=== PATIENT | male | born 1945 | race Caucasian/White ===

== ENCOUNTER 2018-04-16 12:50 | Outpatient (REF) | payer MEDICARE, MEDICAID, SELFPAY ==
[2018-04-16 14:00] LABS: HCT 44.1 % (40.0-50.0); HGB 15.1 g/dL (13.5-17.5); Mean Corp. HGB Concentration 34.2 g/dL (32.0-36.0); Mean Corpuscular Hemoglobin 31.7 pg (27.0-33.0); Mean Corpuscular Volume 92.6 fL (80-95); Mean Platelet Volume 9.8 fL (8.0-11.0); Platelet Count 258 x1000/uL (130-400); RBC 4.76 m/cumm (4.50-6.00); RBC Distribution Width 13.2 % (11.8-14.1); White Blood Cell Count 8.49 k/cumm (4.4-10.8)
[2018-04-16 14:27] LABS: ALT 26 U/L (12-78); AST 17 U/L (15-37); Albumin 4.2 g/dL (3.4-5.0); Alkaline Phosphatase 70 U/L (46-116); Anion Gap 11.8 mmol/L (3-11); BUN 16 mg/dL (7-18); Bilirubin, Total 0.8 mg/dL (0.2-1.0); CO2 25.2 mmol/L (21.0-32.0); CREATININE 1.24 mg/dL (0.70-1.30); Calcium 8.9 mg/dL (8.5-10.1); Chloride 102 mmol/L (98-107); Cholesterol 186 mg/dL (50-200); Glucose 110 mg/dL (70-100); HDL Cholesterol 54 mg/dL (40-60); LDL CHOLESTEROL 117 mg/dL (<100); Potassium 4.1 mmol/L (3.5-5.1); Sodium 139 mmol/L (136-145); TSH (W/Ref FT4) 2.32 uIU/mL (0.358-3.74); Total Protein 7.2 g/dL (6.4-8.2); Triglyceride 111 mg/dL (30-150)
== END 2018-04-16 13:10 ==
LOC: NCHCN 12:50
PROVIDERS: PCP Family Medicine; Visit Provider Family Medicine
DX: E78.5 Hyperlipidemia, unspecified (principal); I10 Essential (primary) hypertension; J44.9 Chronic obstructive pulmonary disease, unspecified
CPT/HCPCS: 80053; 80061; 83721; 85027; 84443

== ENCOUNTER 2019-04-18 09:01 | Outpatient (REF) | payer MEDICARE, MEDICAID, SELFPAY ==
[2019-04-18 12:17] LABS: ALT 12 U/L (16-63); AST 9 U/L (15-37); Albumin 3.6 g/dL (3.4-5.0); Alkaline Phosphatase 60 U/L (46-116); BUN 15 mg/dL (7-18); Bilirubin, Total 0.7 mg/dL (0.2-1.0); CREATININE 1.26 mg/dL (0.70-1.30); Calculated LDL 98 mg/dL; Chloride 103 mmol/L (98-107); Cholesterol 168 mg/dL (<200); Glucose 116 mg/dL (74-106); HDL Cholesterol 52 mg/dL (40-60); Potassium 4.4 mmol/L (3.5-5.1); Sodium 142 mmol/L (136-145); Total Protein 6.7 g/dL (6.4-8.2); Triglyceride 94 mg/dL (<150)
== END 2019-04-18 09:21 ==
LOC: NCHCN 09:01
PROVIDERS: PCP Family Medicine; Visit Provider Family Medicine
DX: I10 Essential (primary) hypertension (principal); E78.5 Hyperlipidemia, unspecified
CPT/HCPCS: 80053; 80061

== ENCOUNTER 2020-02-13 01:13 | Outpatient (CLI) | payer MEDICARE, MEDICAID, SELFPAY ==
--- NOTE | 2020-02-13 13:30 | DI.CTLCSR_ITS ---
EXAM: CT CHEST LUNG CANCER SCREEN CLINICAL HISTORY: SCREENING FOR LUNG CA, CURRENT SMOKER, F17.210 TECHNIQUE: COMPARISON: CR CHEST 2 VIEWS PA,LAT from 10/15/2015 FINDINGS: CT examination of the chest was performed utilizing low-dose lung cancer screening protocol without c ontrast administration. Images obtained through the upper abdomen show unremarkable appearance of visualized portions of live r, spleen, pancreas, adrenals, and kidneys. There is slight prominence of pretracheal lymph nodes, the largest measuring about 19 millimeters in greatest diameter. No gross adenopathy identified in mediastinum or catina. Tracheobronchial tree shows scattered traction bronchiectasis in the upper lobes. There is severe [place] emphysema and associated reticular changes in the upper lobes. There is a 4 millimeter in diamet er right upper lobe intrapulmonary nodule seen laterally at the level of the karyn. This is noncalc ified. No other significant pulmonary nodule seen. No pleural effusion. No thoracic aortic aneurysm. IMPRESSION: Severe bullous emphysema. 4 millimeter left upper lobe intrapulmonary nodule. Lung RADS Cat 2 - Benign Appearance / Behavior: Nodules with a very low likelihood of becoming a clin ically active cancer due to size or lack of growth Continue annual screening with LD CT in 12 months. RADIATION DOSE DELIVERED: 113.24mGy.cm Total DLP
== END 2020-02-13 01:33 ==
PROVIDERS: PCP Family Medicine; Visit Provider Internal Medicine
DX: F17.210 Nicotine dependence, cigarettes, uncomplicated (principal); R91.1 Solitary pulmonary nodule; J43.9 Emphysema, unspecified
CPT/HCPCS: G0297

== ENCOUNTER 2020-03-19 01:26 | Outpatient (CLI) | payer MEDICARE, MEDICAID, SELFPAY ==
--- NOTE | 2020-03-19 | DI.US_ITS ---
EXAM: US LOWER EXTREMITY VENOUS RT CLINICAL HISTORY: SWELLING OF LIMB,R22.41. TECHNIQUE: Right lower extremity venous ultrasound performed using grayscale, color-flow, and spectr al Doppler analysis. COMPARISON: No exams were available for comparison FINDINGS: The right common femoral, femoral and popliteal veins demonstrate normal compressibility, augmentatio n, and color Doppler. The posterior tibial veins are patent.The right greater saphenous vein is not s een and is presumed to be surgically absent in this patient who is apparently had prior bypass surger y on the right leg performed approximately 10 years ago. IMPRESSION: No ultrasound evidence of DVT in the right lower extremity. DATA REPOSITORY:
== END 2020-03-19 01:46 ==
PROVIDERS: PCP Family Medicine; Visit Provider Family Medicine
DX: R22.41 Localized swelling, mass and lump, right lower limb (principal)
CPT/HCPCS: 93971

== ENCOUNTER 2022-08-03 16:18 | Inpatient (IN) | payer MEDICARE, MEDICAID, SELFPAY ==
[2022-08-03] VITALS (55 sets, daily range): BP systolic 109–169; BP diastolic 62–120; PULSE 100–133; RESP 4–30; TEMP 35.7–36; O2SAT 68–100
--- NOTE | 2022-08-03 | DI.RAD_ITS ---
Exam(s) XR PORTABLE CHEST AP EXAM: XR PORTABLE CHEST AP CLINICAL HISTORY: s/p pigtail catheter insertion for pneumothorax TECHNIQUE: 2D digital imaging was performed. COMPARISON: CR,XR XR CHEST 2V PA LATERAL from 08/03/2022 FINDINGS: A left-sided pigtail chest tube has been inserted in the mid to lower lateral chest. There has been considerable reinflation of the left lung however small pneumothorax remains present. The length sev ere emphysematous changes are again noted. No focal infiltrates. IMPRESSION: Decreased size of left pneumothorax status post placement of chest tube. DATA REPOSITORY: RADIATION DOSE DELIVERED:
--- NOTE | 2022-08-03 16:15 | RT.EKG_ITS ---
APPROVED REPORT Exam: Resting ECG Reason for Exam: SOB Patient Location: E HR:129 bpm ECG Measurements Heart Rate 129 AXIS PA 130 P 69 QRSd 88 QRS 92 QT 331 T 47 QTc 486 Conclusion Sinus tachycardia...rate> 99 Right axis deviation...QRS axis ( 36,216)
--- NOTE | 2022-08-03 16:30 | DI.RAD_ITS ---
Exam(s) XR CHEST 2V PA LATERAL EXAM: XR CHEST 2V PA LATERAL CLINICAL HISTORY: SOB TECHNIQUE: 2D digital imaging was performed. COMPARISON: CR CHEST 2 VIEWS PA,LAT from 10/15/[address] CHEST LUNG CANCER SCREEN from 02/13/2020 FINDINGS: HEART: Normal size. Aorta: Not dilated. PULMONARY VASCULATURE: Normal. LUNGS: Clear. Severe underlying emphysematous changes. PLEURAL SPACE: No pleural effusion. Small to moderate size left pneumothorax. BONE:Unremarkable for age. IMPRESSION: Left pneumothorax. DATA REPOSITORY: RADIATION DOSE DELIVERED:
[2022-08-03] MEDS: predniSONE 20 MG TAB 60 MG PO (16:52)
[2022-08-03 16:53] LABS: BE (Venous) -1 mmol/L (-2-3); HCO3 (Venous) 25 mmol/L (23-28); O2 Sat (Venous) 73 %; TCO2 (Venous) 23 mmol/L (24-29); pCO2 (Venous) 54 mmHg (41-51); pH (Venous) 7.28 (7.31-7.41); pO2 (Venous) 41 mmHg
[2022-08-03] MEDS: Albuterol/Ipratropium 3 ML UPD VIAL UPD ×3 (16:53→22:56)
[2022-08-03 16:55] LABS: Abs Immature Grans 0.04 10^3/uL (0.0-0.06); Absolute Basophil Count 0.03 10^3/uL (0.0-0.2); Absolute Eosinophil Count 0.01 10^3/uL (0.0-0.7); Absolute Lymphocyte Count 0.51 10^3/uL (1.2-3.4); Absolute Monocyte Count 0.54 10^3/uL (0.1-0.8); Absolute Neutrophil Count 12.38 10^3/uL (1.2-6.7); Basophils % 0.2; Eosinophils % 0.1; HCT 43.7 % (40.0-50.0); HGB 15.3 g/dL (13.5-17.5); Immature Grans % 0.3; Lymphocytes % 3.8; MCH 31.9 pg (27.0-33.0); MCV 91 fL (80-95); MPV 8.8 fL (8.0-11.0); Neutrophils % 91.6; Platelet Count 272 10^3/uL (130-400); RBC 4.79 10^6/uL (4.36-5.78); RDW 12.3 % (11.8-14.1); RDW-SD 41.4 fL; WBC 13.51 10^3/uL (4.4-10.8)
[2022-08-03] MEDS: Normal Saline 1,000 ML 1000 ML IV (17:01)
[2022-08-03 17:13] LABS: ALT 22 U/L (16-63); AST 16 U/L (15-37); Alkaline Phosphatase 73 U/L (46-116); Anion Gap 11.2 mmol/L (3-11); BUN 23 mg/dL (7-18); Bilirubin, Total 0.7 mg/dL (0.2-1.0); CO2 26.8 mmol/L (21.0-32.0); CREATININE 1.3 mg/dL (0.70-1.30); Calcium 9.4 mg/dL (8.5-10.1); Chloride 100 mmol/L (98-107); Estimated GFR 56.58 (mL/min/1.73m2); Glucose 169 mg/dL (74-106); Magnesium 1.9 mg/dL (1.8-2.4); Potassium 4.3 mmol/L (3.5-5.1); Sodium 138 mmol/L (136-145); Total Protein 7.9 g/dL (6.4-8.2); Troponin I < 50 ng/L (<or=60)
--- NOTE | 2022-08-03 17:40 | W.ED.GENAD ---
Discharge Plan Disposition Patient Disposition: Admit to [facility] Discharge Details Clinical Impression: Pneumothorax, COPD (chronic obstructive pulmonary disease), Tobacco abuse disorder Admit Date/Time: 08/03/22 18:47 Admit Provider: Guru Cosby Attending Provider: Guru Cosby Primary Care Provider: Lor Cristina ED Provider: Gypsy Patterson Medical Decision Making Radiology with [employer] called. The patient is having increased difficulty breathing and we have asked him to turn his oxygen up to 3 L. 1809 Patient is back from radiology and sats are in the high 80s on 2 L/min with a poor waveform. He states that his breathing got worse with exertion but is improving now that he is resting. He is still speaking in full sentences. We will repeat the DuoNeb and I will admit him at this time. He is still tachycardic and it is unclear to me why. CXR pending. He does not feel hot but we will check a rectal temperature. Going to put in for a PE protocol CT as well. Short time after above I reviewed the x-ray and noted no edema and severe COPD without blebs. The patient also had a 30% pneumothorax. Radiology stated that it was unclear whether the patient had any element of tension because of his COPD. The patient was moved to room 2 and surgery was called to place a pigtail catheter chest tube with me. Nursing was instructed to take frequent vital signs. Patient's sats were unchanged and his heart rate had actually come down into the 120s. Kept a close eye on his blood pressure. Thought he would do a lot better with the pigtail that a full open chest tube. The patient tolerated chest tube placement well and immediately felt improved after this with the sats increasing into the 90s on room air. He was alert and oriented. Of note, Dr. Cosby was updated multiple times. He did note that the patient needed a repeat chest x-ray at 2100 tonight and again tomorrow morning. Medical Records Medical records reviewed: Yes I reviewed the patient's medical records. Imaging Data Radiologic Study: My impression: Severe COPD, no edema, pneumothorax Radiologist's impression: 30% pneumothorax, unable to ascertain tension Lab Data Lab results reviewed: Yes I reviewed the patient's lab results. Lab results narrative: White blood cell count 13.5 thousand with 92 polys and no bands. Patient's VBG shows a pH of 7.28, PCO2 of 54, and bicarb of 23 ECG Data Attestation: I personally reviewed and interpreted this ECG (s) as follows: Interpretation: Sinus tachycardia at 130, right axis deviation, some artifact HPI General Date/Time Provider Initiated Documentation: 08/03/22 16:35. HPI Narrative: This 77-year-old male patient presents with a chief complaint of shortness of breath that began when he got up this morning and has been worsening over the course the day. He is vague about whether this began suddenly or started slowly and then got worse. He is a heavy smoker and has a history of COPD. He tried his rescue inhaler without relief. He has had no fever, cough, or URI symptoms. He has no chest or abdominal pain. He does have some pedal edema which is somewhat new. He has no calf pain. Exertion makes his breathing worse. It was moderately severe so the patient decided to come to the emergency department. It has also been constant. Patient thinks his oxygen saturation is typically 97%. Related Data Home Medications Medication Instructions Recorded Confirmed albuterol sulfate 90 mcg/actuation 2 puff inhalation PRN PRN 03/29/14 08/03/22 aerosol inhaler albuterol sulfate 90 mcg/actuation 8.5 gm inhalation Q4H PRN PRN ##1 03/29/14 aerosol inhaler methylprednisolone 4 mg tablets in 4 mg PO DIRECTED #1 unit 03/29/14 a dose pack fluticasone fur. 100 mcg-umeclid 1 inh inhalation QDAY 08/03/22 08/03/22 62.5 mcg-vilant 25 mcg inhalat.powder (Trelegy Ellipta) Previous Rx's Medication Instructions Recorded albuterol sulfate 90 mcg/actuation 8.5 gm inhalation Q4H PRN PRN ##1 03/29/14 aerosol inhaler methylprednisolone 4 mg tablets in 4 mg PO DIRECTED #1 unit 03/29/14 a dose pack Allergies Allergy/AdvReac Type Severity Reaction Status Date / Time No Known Allergies Allergy Unverified 03/29/14 11:30 General Stated Complaint: SOB KRISTEL: 3 Review of Systems Constitutional Constitutional: Denies chills, Denies fever(s), Denies headache(s) and Denies weakness Eyes Eyes: Denies diplopia and Reports other (no redness) ENT Ears, Nose, Mouth, and Throat: Denies otalgia, Denies headache(s), Denies nasal congestion, Denies nasal discharge, Denies neck pain and Denies sore throat Cardiovascular Cardiovascular: Denies chest pain, Denies palpitations and Reports dyspnea Respiratory Respiratory: Denies cough, Reports dyspnea and Reports wheezing Gastrointestinal Gastrointestinal: Denies abdominal pain, Denies diarrhea, Denies nausea and Denies vomiting Genitourinary Genitourinary: Denies difficulty urinating and Denies dysuria Musculoskeletal Musculoskeletal: Denies myalgias, Denies muscle weakness, Denies neck pain, Denies numbness and Reports other (edema) Integumentary/Breasts Skin/Breast: Denies change in pigmentation and Denies rash Neurologic Neurologic: Denies headache(s), Denies numbness and Denies weakness Endocrine Endocrine: Denies palpitations Allergic/Immunologic Allergic/Immunologic: Reports wheezing PFSH All Active Problems (Updated 08/03/22 @ 20:20 by Guru Cosby MD) Discharge planning issues (Acute) Tobacco abuse disorder (Acute) COPD (chronic obstructive pulmonary disease) (Chronic) Pneumothorax (Acute) Social History Smoking/Tobacco Use Status: Current every day Tobacco Type: cigarettes Smoking risk assessment performed?: Yes Alcohol Intake: former Drug use: Never Substance use type: does not use Do you feel safe at home: Yes Do you feel safe in your relationship?: Yes Exam Const General: no acute distress, well developed, well groomed and not in acute distress Nutritional Appearance: well nourished Orientation: alert and oriented x3 [facility] Head: normocephalic and atraumatic Ears: external ears normal Mouth: oropharynx normal and moist mucous membranes Throat: posterior oropharynx normal Eyes Conjunctivae: conjunctivae normal Neck Neck: full ROM and supple Chest Chest: normal inspection of the chest Resp Effort & Inspection: normal respiratory effort and able to speak in complete sentences Auscultation: other (Decreased air movement throughout with scattered wheezing, no rales) Cardio Rate: regular rate Rhythm: regular rhythm Heart Sounds: no murmurs and no rubs GI Inspection: normal to inspection Palpation: soft, nontender and other (non distended) Auscultation: normal bowel sounds Skin General skin exam: no rashes or lesions noted and other (pink, warm, dry) Neuro General: patient alert, patient awake and patient oriented x3 Speech: speech normal Motor: other (HALL) Sensory Exam: no sensory deficits noted Extrem General: normal to inspection, full ROM and other (1+ pitting edema bilaterally) Psych Mental Status: mental status grossly normal Speech and Movement: speech and movement normal Affect: normal affect Course Vital Signs Vital signs: Vital Signs Temperature 35.7 C L 08/03/22 16:12 Pulse 131 H 08/03/22 16:12 Respiratory Rate 28 H 08/03/22 16:12 Blood Pressure 159/74 H 08/03/22 16:12 Pulse Oximetry 88 L 08/03/22 16:12 Temperature 35.7 C L 08/03/22 16:12 Temperature Source Temporal Artery Scan 08/03/22 16:12 Pulse 131 H 08/03/22 16:12 Respiratory Rate 22 08/03/22 16:53 Respiratory Effort Short of Breath 08/03/22 16:29 Respiratory Depth Normal 08/03/22 16:29 Respiratory Pattern Normal 08/03/22 16:29 Blood Pressure 159/74 H 08/03/22 16:12 Blood Pressure Position Sitting 08/03/22 16:12 Pulse Oximetry 92 08/03/22 16:53 Oxygen Delivery Method Nasal Cannula 08/03/22 16:53 Oxygen Flow Rate 2 08/03/22 16:53 Pain Level 5 08/03/22 16:12 Lab/Test Results Lab/Test Results: Laboratory Tests Range/Units 08/03/22 08/03/22 08/03/22 16:40 16:40 16:40 WBC (4.4-10.8) 10^3/uL 13.51 H RBC (4.36-5.78) 10^6/uL 4.79 Hgb (13.5-17.5) g/dL 15.3 Hct (40.0-50.0) % 43.7 MCV (80-95) fL 91 MCH (27.0-33.0) pg 31.9 MCHC (32.0-36.0) % 35.0 RDW (11.8-14.1) % 12.3 Plt Count (130-400) 10^3/uL 272 MPV (8.0-11.0) fL 8.8 Immature Gran % 0.3 Neutrophils % 91.6 Lymphocytes % 3.8 Monocytes % 4.0 Eosinophils % 0.1 Basophils % 0.2 Nucleated RBC % (0.0-0.3) % 0.0 Absolute Neutrophils (1.2-6.7) 10^3/uL 12.38 H Absolute Lymphocytes (1.2-3.4) 10^3/uL 0.51 L Absolute Monocytes (0.1-0.8) 10^3/uL 0.54 Absolute Eosinophils (0.0-0.7) 10^3/uL 0.01 Absolute Basophils (0.0-0.2) 10^3/uL 0.03 VBG pH (7.31-7.41) 7.28 L VBG pCO2 (41-51) mmHg 54 H VBG pO2 mmHg 41 VBG HCO3 (23-28) mmol/L 25 VBG Total CO2 (24-29) mmol/L 23 L VBG O2 Saturation % 73 VBG Base Excess (-2-3) mmol/L -1 Sodium (136-145) mmol/L 138 Potassium (3.5-5.1) mmol/L 4.3 Chloride (98-107) mmol/L 100 Carbon Dioxide (21.0-32.0) mmol/L 26.8 Anion Gap (3-11) mmol/L 11.2 H BUN (7-18) mg/dL 23 H Creatinine (0.70-1.30) mg/dL 1.3 Est GFR (CKD-EPI 2020) (mL/min/1.73m2) 56.58 Glucose (74-106) mg/dL 169 H Calcium (8.5-10.1) mg/dL 9.4 Magnesium (1.8-2.4) mg/dL 1.9 Total Bilirubin (0.2-1.0) mg/dL 0.7 AST (15-37) U/L 16 ALT (16-63) U/L 22 Alkaline Phosphatase (46-116) U/L 73 Troponin I (<or=60) ng/L < 50 Total Protein (6.4-8.2) g/dL 7.9 Albumin (3.4-5.0) g/dL 4.0 Procedures Chest Tube Chest Tube 1: Progress: Pigtail catheter placed in anterior axillary line opposite nipple. This was done with Dr. Rasmussen; please see his procedure note. The patient tolerated this well and his sats went up into the 90s after this off oxygen.
--- NOTE | 2022-08-03 18:20 | DI.VRAD_ITS ---
Addendum created by Lia Feldman MD on 08/03/2022 6:27:24 PM EDT: THIS REPORT CONTAINS FINDINGS THAT MAY BE CRITICAL TO PATIENT CARE. The pertinent findings were verbally communicated via telephone with Gypsy Patterson at 18:22 EDT on 08/03/2022. The findings were acknowledged and understood. Initial report created on 08/03/2022 6:19:54 PM EDT: PROCEDURE INFORMATION: Exam: XR Chest Exam date and time: 08/03/2022 17:57 Age: 77 years old Clinical indication: Other: SOB TECHNIQUE: Imaging protocol: Radiologic exam of the chest. Views: 2 views. COMPARISON: CT CHEST LUNG CANCER SCREEN 02/13/2020 13:30 FINDINGS: Lungs: No gross airspace consolidation. Pleural spaces: Moderate left pneumothorax, likely approximately 30%, in the setting of severe pulmonary emphysema. Heart/Mediastinum: Diminution of the cardiac silhouette in the setting of emphysema. Very difficult to tell if there is any tension component given the small size of the heart Bones/joints: No acute fracture. IMPRESSION: Moderate left pneumothorax, likely approximately 30%, in the setting of severe pulmonary emphysema. Challenging to assess for any tension component given the small size of the heart in the setting of emphysema. Dictated and Authenticated by: Lia Feldman MD. Ordering:SHERRI Betancur MD
--- NOTE | 2022-08-03 20:00 | HPE_ITS ---
Date of service: 08/03/22 Time of Service: 20:00 Assessment and Plan Assessment and plan (1) Pneumothorax: Status: Acute Assessment and plan: At risk d/t emphysema and significantly hyperinflated lungs. S/P pigtail catheter placement and greatly improved ease of breathing. Gen Surg to follow. (2) COPD (chronic obstructive pulmonary disease): Status: Chronic Assessment and plan: He is on Trelegy at home. Will substitute Symbicort and scheduled duonebs. No exacerbation noted. Pulmonary medicine consulted. (3) Tobacco abuse disorder: Status: Acute Assessment and plan: Off nicotine replacement and encourage cessation. He is on buproprion; for anxiety and smoking cessation. He states he wishes he could quit. History of Present Illness History of Present Illness Chief Complaint: Shortness of breath Narrative: This is a 77 yo male with a PMH of COPD, ongoing tobacco abuse disorder, previous pneumothorax. After getting out of bed on AM of admission he felt short of air. This progressed throughout the day. He found no relief with his rescue inhaler. No F/C, cough/sputum. No CP/palpitations. Vital Signs Temperature ?35.7 C L ?08/03/22 16:12 Pulse ?131 H ?08/03/22 16:12 Respiratory Rate ?28 H ?08/03/22 16:12 Blood Pressure ?159/74 H ?08/03/22 16:12 Pulse Oximetry ?88 L ?08/03/22 16:12 WBC count 13.51. Hgb 15.3. Na 138. K 4.3. BUN 23. Creatinine 1.3. Mg 1.9. Bili and LFTs normal. Troponin neg. CXR showed significant emphysematous changes. + left sided-pneumothorax. Gen Surgery consulted for placement of pigtail chest catheter. Review of Systems All systems reviewed & are unremarkable except as noted in HPI and below PFSH All Active Problems (Updated 08/03/22 @ 20:20 by Guru Cosby MD) Discharge planning issues (Acute) Tobacco abuse disorder (Acute) COPD (chronic obstructive pulmonary disease) (Chronic) Pneumothorax (Acute) Social History Smoking/Tobacco Use Status: Current every day Tobacco Type: cigarettes Smoking risk assessment performed?: Yes Alcohol Intake: former Drug use: Never Substance use type: does not use Do you feel safe at home: Yes Do you feel safe in your relationship?: Yes Meds Allergies and Home Medications Allergies Allergy/AdvReac Type Severity Reaction Status Date / Time No Known Allergies Allergy Unverified 03/29/14 11:30 Home Medications Medication Instructions Recorded Confirmed Type albuterol sulfate 90 mcg/actuation 2 puff PRN PRN 03/29/14 08/03/22 History aerosol inhaler albuterol sulfate 90 mcg/actuation 8.5 gm inhalation Q4H PRN PRN ##1 03/29/14 Rx aerosol inhaler methylprednisolone 4 mg tablets in 4 mg PO DIRECTED #1 unit 03/29/14 Rx a dose pack fluticasone fur. 100 mcg-umeclid inhalation QDAY 08/03/22 History 62.5 mcg-vilant 25 mcg inhalat.powder (Trelegy Ellipta) Exam Const General: no acute distress, well developed and well groomed Nutritional Appearance: thin Orientation: alert and oriented x3 [facility] Head: normocephalic and atraumatic Mouth: oropharynx normal and moist mucous membranes Eyes General: appearance normal, both eyes and all related structures Conjunctivae: conjunctivae normal Sclera: sclerae normal Neck Neck: full ROM and no JVD Chest Chest: normal inspection of the chest Resp Effort & Inspection: normal respiratory effort and able to speak in complete sentences Auscultation: clear to auscultation bilaterally and other (Decreased air movement throughout with scattered wheezing, no rales) Cardio Rate: regular rate Rhythm: regular rhythm Heart Sounds: no murmurs and no rubs GI Inspection: normal to inspection and non-distended Palpation: soft and nontender Auscultation: normal bowel sounds Skin General skin exam: no rashes or lesions noted, no pallor and other (warm, dry) Neuro General: patient alert, patient awake, patient oriented x3 and no focal motor deficits Speech: speech normal Extrem General: normal to inspection, no calf tenderness and edema Laterality: bilateral Psych Mental Status: mental status grossly normal Speech and Movement: speech and movement normal Affect: normal affect Results Labs 08/03/22 16:40 08/03/22 16:40 Labs: Laboratory Results - last 24 hr 08/03/22 08/03/22 08/03/22 16:40 16:40 16:40 WBC 13.51 H RBC 4.79 Hgb 15.3 Hct 43.7 MCV 91 MCH 31.9 MCHC 35.0 RDW 12.3 Plt Count 272 MPV 8.8 Immature Gran % 0.3 Neutrophils % 91.6 Lymphocytes % 3.8 Monocytes % 4.0 Eosinophils % 0.1 Basophils % 0.2 Nucleated RBC % 0.0 Absolute Neutrophils 12.38 H Absolute Lymphocytes 0.51 L Absolute Monocytes 0.54 Absolute Eosinophils 0.01 Absolute Basophils 0.03 VBG pH 7.28 L VBG pCO2 54 H VBG pO2 41 VBG HCO3 25 VBG Total CO2 23 L VBG O2 Saturation 73 VBG Base Excess -1 Sodium 138 Potassium 4.3 Chloride 100 Carbon Dioxide 26.8 Anion Gap 11.2 H BUN 23 H Creatinine 1.3 Est GFR (CKD-EPI 2020) 56.58 Glucose 169 H Calcium 9.4 Magnesium 1.9 Total Bilirubin 0.7 AST 16 ALT 22 Alkaline Phosphatase 73 Troponin I < 50 Total Protein 7.9 Albumin 4.0 Last Vital Signs Temp 35.7 C L 08/03/22 16:12 Pulse 124 H 08/03/22 19:30 Resp 20 08/03/22 19:40 BP 145/79 H 08/03/22 19:30 Pulse Ox 94 08/03/22 19:40 Time Spent Time spent with Patient: 40-54 minutes Time was spent: preparing to see the patient(eg.review tests), obtaining and/or reviewing separately otained hiistory, ordering medications,tests, procedures, referring, communicating with other health hospice patient care secretary and indepentently interpreting results
--- NOTE | 2022-08-03 20:07 | SCONE_ITS ---
Date of service: 08/03/22 Time of Service: 20:07 Assessment and Plan Assessment and plan (1) Pneumothorax: Status: Acute Assessment and plan: Continue tube thoracostomy to -20 cm of water is worth of suction for tonight. Check chest x-ray tomorrow, anticipating transition over to waterseal drainage. History of Present Illness History of Present Illness Chief Complaint: Shortness of breath Narrative: Gregorio is a 77-year-old male with a past medical history that is most significant for chronic obstructive pulmonary disease, who experienced increasing shortness of breath this morning. He first noticed it when up and moving around. The exertional dyspnea increased through the morning time, until he was experiencing near consistent shortness of breath. He had some associated coughing. He denies any chest pain. He came to the emergency department, and underwent a chest x-ray that demonstrated pneumothorax on the left side. I was consulted for insertion of a tube thoracostomy. Review of Systems Constitutional Constitutional: Denies fever(s), Denies weakness and Denies weight loss Cardiovascular Cardiovascular: Denies chest pain, Reports dyspnea and Reports dyspnea on exertion Respiratory Respiratory: Reports cough, Reports dyspnea and Reports dyspnea on exertion Gastrointestinal Gastrointestinal: Reports system reviewed and no additional complaints, except as documented Musculoskeletal Musculoskeletal: Reports system reviewed and no additional complaints, except as documented Neurologic Neurologic: Denies weakness PFSH All Active Problems (Updated 08/03/22 @ 20:20 by Guru Cosby MD) Discharge planning issues (Acute) Tobacco abuse disorder (Acute) COPD (chronic obstructive pulmonary disease) (Chronic) Pneumothorax (Acute) Social History Smoking/Tobacco Use Status: Current every day Tobacco Type: cigarettes Smoking risk assessment performed?: Yes Alcohol Intake: former Drug use: Never Substance use type: does not use Do you feel safe at home: Yes Do you feel safe in your relationship?: Yes Exam Const General: cooperative, frail appearing and ill appearing Nutritional Appearance: cachectic Orientation: alert, awake and oriented x3 Neck Neck: normal visual inspection, full ROM and trachea midline Chest Chest: normal inspection of the chest Resp Effort & Inspection: cough, labored, no segmental paradox chest wall movement, no tracheal deviation and tripod positioning Auscultation: diminished lung sounds on the left Results Last Vital Signs Temp 96.3 F L 08/03/22 16:12 Pulse 124 H 08/03/22 19:30 Resp 20 08/03/22 19:40 BP 145/79 H 08/03/22 19:30 Pulse Ox 94 08/03/22 19:40 Labs 08/03/22 16:40 08/03/22 16:40 Labs: Laboratory Results - last 24 hr 08/03/22 08/03/22 08/03/22 16:40 16:40 16:40 WBC 13.51 H RBC 4.79 Hgb 15.3 Hct 43.7 MCV 91 MCH 31.9 MCHC 35.0 RDW 12.3 Plt Count 272 MPV 8.8 Immature Gran % 0.3 Neutrophils % 91.6 Lymphocytes % 3.8 Monocytes % 4.0 Eosinophils % 0.1 Basophils % 0.2 Nucleated RBC % 0.0 Absolute Neutrophils 12.38 H Absolute Lymphocytes 0.51 L Absolute Monocytes 0.54 Absolute Eosinophils 0.01 Absolute Basophils 0.03 VBG pH 7.28 L VBG pCO2 54 H VBG pO2 41 VBG HCO3 25 VBG Total CO2 23 L VBG O2 Saturation 73 VBG Base Excess -1 Sodium 138 Potassium 4.3 Chloride 100 Carbon Dioxide 26.8 Anion Gap 11.2 H BUN 23 H Creatinine 1.3 Est GFR (CKD-EPI 2020) 56.58 Glucose 169 H Calcium 9.4 Magnesium 1.9 Total Bilirubin 0.7 AST 16 ALT 22 Alkaline Phosphatase 73 Troponin I < 50 Total Protein 7.9 Albumin 4.0 Imaging Chest x-ray: report reviewed and image reviewed Procedures Chest Tube Chest Tube 1: Chest tube location: Mid-Axillary Chest Size of tube: 8 Chest tube procedure: Yes sterile drapes applied (ChloraPrep) and other Tube sutured to skin: Yes Sterile dressing applied: Yes Anesthesia: 1% Lidocaine Volume anesthetic (ml): 5 Incision made with: #11 blade Post procedure: sutured to skin and sterile dressing applied Arauz of air heard: No Tube Drainage: Air Amount of initial drainage (ml): 0 Post procedure CXR?: Yes Patient tolerated procedure: Yes Progress: After reviewing the planned procedure with the patient, and obtaining his verbal informed consent, I prepped and draped the left chest in the usual fashion. I established a generous field block using local anesthetic. I anesthetized down to the rib and the periosteum. The procedure was performed in the anterior axillary line approximately the sixth interspace. I gently advanced the needle into the pleural space confirming it with withdrawal of air. I anesthetized the pleura. Next, using a prepackaged 8 and half [place]atian Flip pigtail style trocar catheter, I accessed the pleural cavity. I withdrew the insertion trocar, and gently advance the catheter into the pleural space without any difficulty. Access to the pleural space was confirmed by easy withdrawal of air, and instillation of a few cc of fluid without any resistance. Catheter was placed to a Pleur-evac container at -20 cm of water as were the pressure. The catheter was affixed to the skin with a suture, and sterile dressings were applied. The patient tolerated the procedure just fine.
--- NOTE | 2022-08-03 20:12 | NUR.NOTE ---
Nursing Note: ER attending and surgeon at bedside to place chest tube. Tube placed on left side at 1948. Pt immediately reporting his breathing is easier. Pt no longer having increased work of breathing. Pt 94% on room air.
[2022-08-03 20:15] LABS: Source Nasal/Nares
[2022-08-03 21:01] LABS: COVID-19 PCR Negative (Negative)
--- NOTE | 2022-08-03 22:32 | DI.VRAD_ITS ---
PROCEDURE INFORMATION: Exam: XR Chest Exam date and time: 08/03/2022 21:06 Age: 77 years old Clinical indication: Device placement; Chest tube; Additional info: Tube placement TECHNIQUE: Imaging protocol: Radiologic exam of the chest. Views: 1 view. COMPARISON: XR CHEST 2V PA LATERAL 08/03/2022 17:57 FINDINGS: Tubes, catheters and devices: Left pigtail chest tube, satisfactory position. Lungs: With the left lung apex excluded, left pneumothorax nearly completely evacuated now likely trace. Pulmonary emphysema again seen. Pleural spaces: No significant pleural fluid. Heart/Mediastinum: Diminution of the cardiac silhouette in the setting of emphysema. Bones/joints: No acute fracture. IMPRESSION: 1. Left pigtail chest tube, satisfactory position. 2. With the left lung apex excluded, left pneumothorax nearly completely evacuated now likely trace. Dictated and Authenticated by: Lia Feldman MD. Ordering:MERRY Garvey MD
[2022-08-03] MEDS: Budesonide/Formoterol 80/4.5 6.9 GM 60 PUFF INH IH (22:56)
[2022-08-04] VITALS (79 sets, daily range): BP systolic 86–124; BP diastolic 57–70; PULSE 86–115; RESP 4–30; TEMP 36.3–36.5; O2SAT 82–991
[2022-08-04] MEDS: Nicotine 21 MG/24 HR PATCH TD (00:10)
[2022-08-04] MEDS: LORazepam 2 MG/ML VIAL 0.5 MG IVP (03:04)
[2022-08-04 06:31] LABS: Abs Immature Grans 0.02 10^3/uL (0.0-0.06); Absolute Basophil Count 0.01 10^3/uL (0.0-0.2); Absolute Lymphocyte Count 0.45 10^3/uL (1.2-3.4); Absolute Monocyte Count 0.54 10^3/uL (0.1-0.8); Absolute Neutrophil Count 6.81 10^3/uL (1.2-6.7); Basophils % 0.1; HCT 38.8 % (40.0-50.0); HGB 13.4 g/dL (13.5-17.5); Immature Grans % 0.3; Lymphocytes % 5.7; MCH 32.1 pg (27.0-33.0); MCHC 34.5 % (32.0-36.0); MCV 93 fL (80-95); Monocytes % 6.9; Platelet Count 182 10^3/uL (130-400); RBC 4.17 10^6/uL (4.36-5.78); RDW 12.5 % (11.8-14.1); RDW-SD 43.3 fL; WBC 7.83 10^3/uL (4.4-10.8)
[2022-08-04 06:37] LABS: ALT 22 U/L (16-63); AST 22 U/L (15-37); Albumin 3.2 g/dL (3.4-5.0); Alkaline Phosphatase 58 U/L (46-116); Anion Gap 8.4 mmol/L (3-11); BUN 23 mg/dL (7-18); Bilirubin, Total 0.4 mg/dL (0.2-1.0); CO2 25.6 mmol/L (21.0-32.0); Calcium 8.9 mg/dL (8.5-10.1); Chloride 103 mmol/L (98-107); Estimated GFR 77.52 (mL/min/1.73m2); Glucose 155 mg/dL (74-106); Potassium 4.2 mmol/L (3.5-5.1); Sodium 137 mmol/L (136-145); Total Protein 6.6 g/dL (6.4-8.2)
[2022-08-04] MEDS: Albuterol/Ipratropium 3 ML UPD VIAL UPD ×2 (08:24→14:05)
[2022-08-04] MEDS: Budesonide/Formoterol 80/4.5 6.9 GM 60 PUFF INH IH ×2 (08:28→19:18)
[2022-08-04] MEDS: buPROPion-CR 150 MG TABCR PO ×2 (08:42→19:49)
--- NOTE | 2022-08-04 11:34 | PDOC.CMIN ---
- If Service Date Differs Date of service: 08/04/22 Time of Service: 11:34 Care Management Initial Assess REASON FOR HOSPITALIZATION:: Pneumothorax PAST MEDICAL HISTORY/PAST SURGICAL HISTORY:: All Active Problems. Discharge planning issues (Acute). Tobacco abuse disorder (Acute). COPD (chronic obstructive pulmonary disease) (Chronic). Pneumothorax (Acute) PREVIOUS FUNCTIONAL STATUS/SOCIAL/FAMILY SUPPORTS:: Gregorio lives in an apartment in [facility], [facility]. He has supportive friends, and is independent at baseline. CURRENT FUNCTIONAL STATUS:: Gregorio was sitting up in bed when CM met with him. He stated that he is looking forward to returning home, but he is doing well today. Per report, he has a chest tube in place currently, and is being closely monitored. He stated that he doesn't feel that he will need any services upon discharge, but he is willing to discuss services, if recommended. CM will continue to follow. ADVANCE DIRECTIVES:: None on file. CM will offer forms prior to discharge. Has patient been provided with info about the portal/API?: Yes Did the patient sign up for the portal?: No CODE STATUS:: Full Code INSURANCE COVERAGE / FINANCIAL ISSUES:: [facility] CURRENT HOME/COMMUNITY SERVICES/EQUIPMENT:: None known. PRIMARY CARE PHYSICIAN:: Lor Cristina POTENTIAL DISCHARGE NEEDS:: Evaluations for further needs, follow up appointments. PATIENT/FAMILY EDUCATION NEEDS:: Review discharge instructions and limitations, discussion of self care needs including ask me three. ANTICIPATED BARRIERS TO DISCHARGE:: None. TRANSPORTATION:: Via private vehicle by a friend vs RCT. PLAN:: Anticipate Gregorio will return home once medically cleared. His friend will likely drive him home via private vehicle. He will follow up with his PCP and discharge plan of care. CM will continue to follow.
--- NOTE | 2022-08-04 16:52 | W.PM.PROGNOT ---
Date of Service Date of service: 08/04/22 Time of Service: 16:53 Assessment and Plan Assessment and plan (1) Pneumothorax: Status: Acute Assessment and plan: I will leave the chest tube to suction today, and check chest x-ray tomorrow. If the lung is expanded, then will transition over to waterseal. Subjective Subjective Interval history since last seen: Gregorio is feeling much better today, and denies any difficulty breathing. He has mild discomfort at the chest tube insertion site. Exam Resp Effort & Inspection: normal respiratory effort, able to speak in complete sentences and cough Auscultation: wheezes and other (Prolonged exhalation) Other: Chest tube site looks fine. Tube is draining a small amount of serosanguineous fluid. There is a rare occasional forced air leak Objective Last Vital Signs Temp 97.3 F L 08/04/22 14:50 Pulse 107 H 08/04/22 14:50 Resp 17 08/04/22 14:50 BP 101/59 L 08/04/22 14:50 Pulse Ox 94 08/04/22 14:50 Laboratory Results - last 24 hr 08/03/22 08/03/22 08/03/22 16:40 16:40 16:40 WBC 13.51 H RBC 4.79 Hgb 15.3 Hct 43.7 MCV 91 MCH 31.9 MCHC 35.0 RDW 12.3 Plt Count 272 MPV 8.8 Immature Gran % 0.3 Neutrophils % 91.6 Lymphocytes % 3.8 Monocytes % 4.0 Eosinophils % 0.1 Basophils % 0.2 Nucleated RBC % 0.0 Absolute Neutrophils 12.38 H Absolute Lymphocytes 0.51 L Absolute Monocytes 0.54 Absolute Eosinophils 0.01 Absolute Basophils 0.03 VBG pH 7.28 L VBG pCO2 54 H VBG pO2 41 VBG HCO3 25 VBG Total CO2 23 L VBG O2 Saturation 73 VBG Base Excess -1 Sodium 138 Potassium 4.3 Chloride 100 Carbon Dioxide 26.8 Anion Gap 11.2 H BUN 23 H Creatinine 1.3 Est GFR (CKD-EPI 2020) 56.58 Glucose 169 H Calcium 9.4 Magnesium 1.9 Total Bilirubin 0.7 AST 16 ALT 22 Alkaline Phosphatase 73 Troponin I < 50 Total Protein 7.9 Albumin 4.0 COVID-19 Source SARS-CoV-2 (PCR) 08/03/22 08/04/22 08/04/22 20:11 05:32 05:32 WBC 7.83 RBC 4.17 L Hgb 13.4 L Hct 38.8 L MCV 93 MCH 32.1 MCHC 34.5 RDW 12.5 Plt Count 182 MPV 10.0 Immature Gran % 0.3 Neutrophils % 87.0 Lymphocytes % 5.7 Monocytes % 6.9 Eosinophils % 0.0 Basophils % 0.1 Nucleated RBC % 0.0 Absolute Neutrophils 6.81 H Absolute Lymphocytes 0.45 L Absolute Monocytes 0.54 Absolute Eosinophils 0.00 Absolute Basophils 0.01 VBG pH VBG pCO2 VBG pO2 VBG HCO3 VBG Total CO2 VBG O2 Saturation VBG Base Excess Sodium 137 Potassium 4.2 Chloride 103 Carbon Dioxide 25.6 Anion Gap 8.4 BUN 23 H Creatinine 1.0 Est GFR (CKD-EPI 2020) 77.52 Glucose 155 H Calcium 8.9 Magnesium Total Bilirubin 0.4 AST 22 ALT 22 Alkaline Phosphatase 58 Troponin I Total Protein 6.6 Albumin 3.2 L COVID-19 Source Nasal/Nares SARS-CoV-2 (PCR) Negative 08/04/22 05:35 WBC RBC Hgb Hct MCV MCH MCHC RDW Plt Count MPV Immature Gran % Neutrophils % Lymphocytes % Monocytes % Eosinophils % Basophils % Nucleated RBC % Absolute Neutrophils Absolute Lymphocytes Absolute Monocytes Absolute Eosinophils Absolute Basophils VBG pH VBG pCO2 VBG pO2 VBG HCO3 VBG Total CO2 VBG O2 Saturation VBG Base Excess Sodium Cancelled Potassium Cancelled Chloride Cancelled Carbon Dioxide Cancelled Anion Gap Cancelled BUN Cancelled Creatinine Cancelled Est GFR (CKD-EPI 2020) Cancelled Glucose Cancelled Calcium Cancelled Magnesium Total Bilirubin AST ALT Alkaline Phosphatase Troponin I Total Protein Albumin COVID-19 Source SARS-CoV-2 (PCR) Time Spent with Patient Time Spent with Patient: <25 minutes Time was spent: preparing to see the patient(eg.review tests), ordering medications,tests, procedures and counseling the patient
--- NOTE | 2022-08-04 19:03 | W.PM.PROGNOT ---
Date of Service Date of service: 08/04/22 Time of Service: 19:03 Assessment and Plan Assessment and plan (1) Pneumothorax: Status: Acute Assessment and plan: continue chest tube w/ suction until resolution of pneumothorax then place to water seal and if stable while on water seal, then can dc. Note he has had prior pneumothoraces. He may need consideration for VATS if unable to resolve his pneumothorax or consider for lung volume reduction to reduce his bullae burden and maybe reduce risk of future pneumothoraces. Patient needs to eliminate his tobacco use. At this point his management is primarily being handled by surgery as he is not having an acute COPD exacerbation. I discussed w/ Dr. Rasmussen transferring him over to surgical service and he was agreeable to this. We will sign off his case but remain available should any acute medical issues arise (2) COPD (chronic obstructive pulmonary disease): Status: Chronic Assessment and plan: patient does not seem to be in an acute COPD exacerbation. I would continue Symbicort and add Spiriva while he is hospitalized (as we do not carry his Trelegy), resume his Trelegy upon discharge, change proventyl updrafts to xopenex (d/t albuterol shortage); I would use the xopenex on a prn basis for wheezing or coughing or dyspnea (not associated w/ worsening of his pneumothorax). Of note his dyspnea for which he presented to the ED was not improved despite his using increased albuterol aerosol treatments. (3) Tobacco abuse disorder: Status: Acute Assessment and plan: change nicotine patch from prn to scheduled. He should be encouraged to quit smoking and medication should be offered upon discharge including nicotine patch and also consider Wellbutrin. Subjective Subjective Interval history since last seen: Patient was seen earlier this afternoon. He is doing better since his chest tube was placed. Chest tube is hooked up to suction. No drainage beyond the initial serosanguinous output.' he denies chest pain or dyspnea at this point. Exam Narrative Exam Narrative: Tall long haired graying individual sitting up in his bed. He is alert and oriented x 3. No acute distress Chest: left chest tube in place in lateral chest wall Lungs: prolonged breath sounds; no rhonchi, diminished breath sounds at the left base Heart: RRR Abdomen: scaphoid, nontender Objective Last Vital Signs Temp 36.3 C L 08/04/22 14:50 Pulse 107 H 08/04/22 14:50 Resp 17 08/04/22 14:50 BP 101/59 L 08/04/22 14:50 Pulse Ox 94 08/04/22 14:50 Laboratory Results - last 24 hr 08/03/22 08/04/22 08/04/22 20:11 05:32 05:32 WBC 7.83 RBC 4.17 L Hgb 13.4 L Hct 38.8 L MCV 93 MCH 32.1 MCHC 34.5 RDW 12.5 Plt Count 182 MPV 10.0 Immature Gran % 0.3 Neutrophils % 87.0 Lymphocytes % 5.7 Monocytes % 6.9 Eosinophils % 0.0 Basophils % 0.1 Nucleated RBC % 0.0 Absolute Neutrophils 6.81 H Absolute Lymphocytes 0.45 L Absolute Monocytes 0.54 Absolute Eosinophils 0.00 Absolute Basophils 0.01 Sodium 137 Potassium 4.2 Chloride 103 Carbon Dioxide 25.6 Anion Gap 8.4 BUN 23 H Creatinine 1.0 Est GFR (CKD-EPI 2020) 77.52 Glucose 155 H Calcium 8.9 Total Bilirubin 0.4 AST 22 ALT 22 Alkaline Phosphatase 58 Total Protein 6.6 Albumin 3.2 L COVID-19 Source Nasal/Nares SARS-CoV-2 (PCR) Negative 08/04/22 05:35 WBC RBC Hgb Hct MCV MCH MCHC RDW Plt Count MPV Immature Gran % Neutrophils % Lymphocytes % Monocytes % Eosinophils % Basophils % Nucleated RBC % Absolute Neutrophils Absolute Lymphocytes Absolute Monocytes Absolute Eosinophils Absolute Basophils Sodium Cancelled Potassium Cancelled Chloride Cancelled Carbon Dioxide Cancelled Anion Gap Cancelled BUN Cancelled Creatinine Cancelled Est GFR (CKD-EPI 2020) Cancelled Glucose Cancelled Calcium Cancelled Total Bilirubin AST ALT Alkaline Phosphatase Total Protein Albumin COVID-19 Source SARS-CoV-2 (PCR) Time Spent with Patient Time Spent with Patient: <25 minutes Time was spent: preparing to see the patient(eg.review tests), ordering medications,tests, procedures, indepentently interpreting results and care coordination
[2022-08-05 00:20] VITALS: BP 125/73; PULSE 75; RESP 18; TEMP 36.1; O2SAT 98
[2022-08-05 07:20] VITALS: BP 122/79; PULSE 102; RESP 20; TEMP 36.2; O2SAT 95
[2022-08-05] MEDS: buPROPion-CR 150 MG TABCR PO ×2 (07:53→19:38)
[2022-08-05] MEDS: Nicotine 21 MG/24 HR PATCH TD (07:54)
[2022-08-05] MEDS: Budesonide/Formoterol 80/4.5 6.9 GM 60 PUFF INH IH ×2 (08:35→19:24)
[2022-08-05] MEDS: Tiotropium Bromide-Respimat 10 PUFF INH 2 PUFF IH (08:36)
[2022-08-05 08:37] VITALS: O2SAT 90
--- NOTE | 2022-08-05 08:46 | DI.RAD_ITS ---
Exam(s) XR PORTABLE CHEST AP EXAM: XR PORTABLE CHEST AP CLINICAL HISTORY: Pneumothorx with chest tube. TECHNIQUE: 2D digital imaging was performed. COMPARISON: CR,XR XR CHEST 2V PA LATERAL from 08/03/2022 CR,XR XR PORTABLE CHEST AP from 08/03/2022 FINDINGS: Single AP portable view. The left pigtail thoracotomy catheter is unchanged in position. There has been further re-expansion of the left lung. Remaining pneumothorax less than 10 percent. Bilateral hyperinflation-COPD change s again noted. No confluent infiltrates. No pleural effusions. No pulmonary edema. Heart size is upper normal. The mediastinum is not widened. IMPRESSION: Further re-expansion of the left lung. Remaining pneumothorax approximately 10 percent. Underlying COPD-hyperinflation. DATA REPOSITORY: RADIATION DOSE DELIVERED:
--- NOTE | 2022-08-05 11:00 | DI.RAD_ITS ---
Exam(s) XR PORTABLE CHEST AP EXAM: XR PORTABLE CHEST AP CLINICAL HISTORY: chest tube clamped x 1 hr. TECHNIQUE: 2D digital imaging was performed. COMPARISON: CR XR PORTABLE CHEST AP from 08/05/2022 , as well as prior chest x-rays. FINDINGS: Single AP portable view. Position of the left pigtail chest catheter is unchanged. Size of the left pneumothorax remains at approximately 10 percent, unchanged from earlier today. Bilateral hyperinflation again noted-COPD changes. No pleural effusions. No confluent infiltrates. No pulmonary edema. IMPRESSION: Left-sided pneumothorax is unchanged from earlier today. Remains approximately 10 percent size. DATA REPOSITORY: RADIATION DOSE DELIVERED:
[2022-08-05 11:17] VITALS: BP 112/68; PULSE 99; RESP 20; TEMP 36.4; O2SAT 91
--- NOTE | 2022-08-05 14:28 | W.PM.PROGNOT ---
Date of Service Date of service: 08/05/22 Time of Service: 14:28 Assessment and Plan Assessment and plan (1) Pneumothorax: Status: Acute Assessment and plan: Chest tube on waterseal. <10% Pneumothorax. No appreciable air leak Leave Chest tube off suction Repeat CXR in am. If not worse then may remove chest tube in am. Subjective Subjective Interval history since last seen: Mr. Galeana is doing well. He doesn't have an air leak. CXR 1 hour after he was taken of suction showed continued improvement of his PTX. NO fevers Exam HENPA Head: normocephalic and atraumatic Resp Effort & Inspection: normal respiratory effort Auscultation: clear to auscultation bilaterally Objective Last Vital Signs Temp 97.5 F L 08/05/22 11:17 Pulse 99 H 08/05/22 11:17 Resp 20 08/05/22 11:17 BP 112/68 08/05/22 11:17 Pulse Ox 91 L 08/05/22 11:17 Time Spent with Patient Time Spent with Patient: <25 minutes Time was spent: preparing to see the patient(eg.review tests), obtaining and/or reviewing separately otained hiistory, indepentently interpreting results and counseling the patient
[2022-08-05 15:02] VITALS: BP 102/68; PULSE 91; RESP 20; TEMP 36.5; O2SAT 95
--- NOTE | 2022-08-05 15:19 | PHACLINREV_ITS ---
Pharmacy Admission Review - Admission Clinical Review (Last Reviewed 08/03/22 @ 20:19 by Guru Cosby MD) Tobacco abuse disorder (Acute) Pneumothorax (Acute) No Known Allergies Allergy (Unverified 03/29/14 11:30) Resuscitation Status Full Code Height 6 ft 7 in Weight 71.8 kg - Renal Dosing Renal Dosing: BUN Cancelled 08/04/22 05:35 Creatinine Cancelled 08/04/22 05:35 Medications needing adjustments: Reviewed (Crcl ~62 mL/min current meds okay) - Anticoagulation Anticoagulation: Hgb 13.4 g/dL (13.5-17.5) L 08/04/22 05:32 Hct 38.8 % (40.0-50.0) L 08/04/22 05:32 Plt Count 182 10^3/uL (130-400) 08/04/22 05:32 Creatinine Cancelled 08/04/22 05:35 DVT Prophylaxis: Intervened (SCDs currently ordered, will ask provider about chemical prophylaxis) Therapeutic Anticoagulation: N/A - Opiate Usage Evaluate Pain Scale/Pains Meds: N/A - Relevant Labs Sodium Cancelled 08/04/22 05:35 Potassium Cancelled 08/04/22 05:35 Chloride Cancelled 08/04/22 05:35 Magnesium 1.9 mg/dL (1.8-2.4) 08/03/22 16:40 Electrolytes, C-Reactive P, ESR: Reviewed - DM Control DM Control: Glucose Cancelled 08/04/22 05:35 DM Control: N/A (no DM noted in pt's medical history, no A1c on file) - Cardiac Review Cardiac Review: Troponin I < 50 ng/L (<or=60) 08/03/22 16:40 BP, HR, EF%: Reviewed (BP has been up and down some and HR has mostly elevated so far this admission) - Qtc Review QTc: Reviewed (QTc 486 on admission) - IV to PO Switch IV Medications: Reviewed - Home Meds Home Med List reviewed: Reviewed (bupropion was not on his med list in [facility] but was filled recently, ordered by provider) Relevent Home Meds Not ordered & why?: darlenelebenedicto ellipta- not avialable in the pharmacy, so subbed with symbicort and spiriva - Current meds Current Medication Order Review: Reviewed - Comments Comments/Follow Ups: Watch HR, BP, labs and for med changes.
[2022-08-05] MEDS: Enoxaparin 40 MG/0.4 ML SYR SC (15:40)
--- NOTE | 2022-08-05 16:16 | PDOC.CMPRO ---
- If Service Date Differs Date of service: 08/05/22 Time of Service: 16:16 Care Management Progress Note S/O: Gregorio was sitting up in bed when CM met with him. He stated that he is feeling good, and that MD clamped his chest tube today. Per MD, if he remains stable overnight, he may be able to return home tomorrow. CM will continue to follow. A: Gregorio is a 77 year old male admitted to [facility] on 08/03/22 with pneumothorax. P: Anticipate Gregorio will return home once medically cleared. His friend will likely drive him home via private vehicle. He will follow up with his PCP and discharge plan of care. CM will continue to follow.
[2022-08-05 23:44] VITALS: BP 116/56; PULSE 75; RESP 16; TEMP 36.5; O2SAT 93
[2022-08-06] VITALS (8 sets, daily range): BP systolic 104–123; BP diastolic 62–71; PULSE 78–105; RESP 4–22; TEMP 36.2–36.7; O2SAT 91–97
--- NOTE | 2022-08-06 | DI.RAD_ITS ---
Exam(s) XR CHEST 2V PA LATERAL EXAM: XR CHEST 2V PA LATERAL CLINICAL HISTORY: chest tube removed TECHNIQUE: 2D digital imaging was performed. COMPARISON: CR,XR XR PORTABLE CHEST AP from 08/06/2022 FINDINGS: The previously noted left chest tube has been removed. HEART: Normal size. Aorta: Not dilated. PULMONARY VASCULATURE: Normal. LUNGS: Small left apical pneumothorax, increasing in size from the prior exam. Underlying emphysemat ous changes. Soft tissues: Large amount of air is noted F sided left chest wall. BONE:Unremarkable for age. IMPRESSION: Increased size of left pneumothorax status post chest tube removal. DATA REPOSITORY: RADIATION DOSE DELIVERED:
[2022-08-06] MEDS: Levalbuterol 1.25 MG/3 ML UPD VIAL UPD (05:29)
[2022-08-06] MEDS: Tiotropium Bromide-Respimat 10 PUFF INH 2 PUFF IH (07:47)
[2022-08-06] MEDS: Budesonide/Formoterol 80/4.5 6.9 GM 60 PUFF INH IH ×2 (07:47→19:19)
--- NOTE | 2022-08-06 08:30 | DI.RAD_ITS ---
Exam(s) XR PORTABLE CHEST AP EXAM: XR PORTABLE CHEST AP CLINICAL HISTORY: Off suction for 24 hours TECHNIQUE: 2D digital imaging was performed. COMPARISON: CR XR PORTABLE CHEST AP from 08/05/2022 FINDINGS: The left sided pigtail catheter appears to have pulled out somewhat when compared to the prior exam, with some of the holes outside of the chest wall. LUNGS: Severe emphysematous changes. Tiny left apical pneumothorax, increasing from prior. HEART: Normal size. AORTA: Normal diameter. BONES: Unremarkable for age. Soft tissues: large amount of left-sided soft tissue air. IMPRESSION: The chest tube appears to have pulled out with a small portion of the pigtail remaining with in the c hest cavity. Increased size of tiny left apical pneumothorax DATA REPOSITORY: RADIATION DOSE DELIVERED:
[2022-08-06] MEDS: Nicotine 21 MG/24 HR PATCH TD (08:47)
[2022-08-06] MEDS: buPROPion-CR 150 MG TABCR PO ×2 (08:47→19:49)
--- NOTE | 2022-08-06 09:12 | W.PM.PROGNOT ---
Date of Service Date of service: 08/06/22 Time of Service: 09:13 Assessment and Plan Assessment and plan (1) Pneumothorax: Status: Acute Assessment and plan: Chest tube on waterseal. NO PTx appreciated today Chest tube unfortunately almost out of chest cavity. I was not alerted to this overnight. Discussed with charge nurse to please to an incident report for education purposes. Chest tube removed. Repeat CXR at 11 am. If no Ptx will D/C to home Subjective Subjective Interval history since last seen: Mr. Galeana is feeling OK this morning. He is not complaining of increased SOB. CXR was reviewed and unfortunately it looks like the chest tube got almost completely pulled out over night and there was subcutaneous emphysema. I did not recieve any calls overnight about this. I did not appreciate a residual pneumothorax. Exam Const General: comfortable and no acute distress Nutritional Appearance: thin Orientation: alert and oriented x3 HENMT Head: normocephalic and atraumatic Chest Other: subcutaneous emphysema palpated along the chest wall to the clavicle Resp Effort & Inspection: normal respiratory effort Auscultation: diminished lung sounds Cardio Rate: regular rate Rhythm: regular rhythm Objective Last Vital Signs Temp 97.2 F L 08/06/22 07:16 Pulse 99 H 08/06/22 07:16 Resp 17 08/06/22 07:16 BP 123/64 08/06/22 07:16 Pulse Ox 97 08/06/22 07:16 Time Spent with Patient Time Spent with Patient: 25-34 minutes Time was spent: preparing to see the patient(eg.review tests), obtaining and/or reviewing separately otained hiistory, ordering medications,tests, procedures, indepentently interpreting results and counseling the patient
--- NOTE | 2022-08-06 09:24 | DI.VRAD_ITS ---
PROCEDURE INFORMATION: Exam: XR Chest Exam date and time: 08/06/2022 8:28 AM Age: 77 years old Clinical indication: Other: Chest tube off suction x 24 hours TECHNIQUE: Imaging protocol: Radiologic exam of the chest. Views: 1 view. COMPARISON: CR XR PORTABLE CHEST AP 08/05/2022 10:58 AM FINDINGS: Tubes, catheters and devices: Left-sided chest tube in place. Is unclear if the tip of the catheter is within the chest cavity or not. Lungs: Scattered airspace opacity throughout the lungs, likely representing some scarring and atelectasis. This is not significantly changed from prior exam. Pleural spaces: No definitive left-sided pneumothorax appreciated. Likely small left-sided pleural effusion. Heart/Mediastinum: Unremarkable. No cardiomegaly. Bones/joints: Unchanged. Soft tissues: The diffuse left-sided subcutaneous emphysema, much greater than on prior examination. IMPRESSION: 1. Left-sided chest tube in place. It is unclear if the tip is within the chest cavity as the tip is close to the lateral aspect of the thoracic cavity. Correlate clinically. 2. Prominent left-sided subcutaneous emphysema, not present on previous exam. 3. No definite residual left-sided pneumothorax. 4. Likely small left-sided pleural effusion. 5. Lung parenchyma grossly stable in appearance when compared to prior exam. Dictated and Authenticated by: Dustin Alvarado MD. Ordering:MAGALIE Nuñze MD
--- NOTE | 2022-08-06 11:48 | DI.VRAD_ITS ---
Addendum created by Amanda Leiva MD on 08/06/2022 12:11:06 PM EDT: THIS REPORT CONTAINS FINDINGS THAT MAY BE CRITICAL TO PATIENT CARE. The findings were verbally communicated by me to WOOD Chen via telephone conference at 12:10 PM EDT on 08/06/2022. The findings were acknowledged and understood. Initial report created on 08/06/2022 11:47:44 AM EDT: PROCEDURE INFORMATION: Exam: XR Chest Exam date and time: 08/06/2022 11:02 AM Age: 77 years old Clinical indication: Other: Chest tube removed TECHNIQUE: Imaging protocol: Radiologic exam of the chest. Views: 2 views. COMPARISON: CR XR PORTABLE CHEST AP 08/06/2022 8:28 AM FINDINGS: Lungs: Severe emphysema. Left basilar atelectasis Pleural spaces: Moderate left pneumothorax appears to be reaccumulating, measuring 4 cm at the left apex Heart/Mediastinum: Unremarkable. No cardiomegaly. Bones/joints: Unremarkable. Soft tissues: Large amount of left chest wall subcutaneous emphysema, unchanged IMPRESSION: 1. Reaccumulating enlarging left pneumothorax 2. Severe emphysema Dictated and Authenticated by: Amanda Leiva MD. Ordering:MAGALIE Nuñez MD
--- NOTE | 2022-08-06 13:00 | DI.RAD_ITS ---
Exam(s) XR PORTABLE CHEST AP POST LINE EXAM: XR PORTABLE CHEST AP POST LINE CLINICAL HISTORY: chest tube placement TECHNIQUE: 2D digital imaging was performed. COMPARISON: CR,XR XR CHEST 2V PA LATERAL from 08/06/2022 FINDINGS: A left-sided pigtail chest tube has been inserted projecting in the mid to lower lateral aspect of th e left chest. There has been some interval improvement in size of left apical pneumothorax, small. LUNGS: Underlying emphysematous changes. HEART: Normal size. AORTA: Normal diameter. BONES: Unremarkable for age. No acute fractures identified. Soft tissues: Large amount of air in the tissues of the left lateral chest wall and neck. IMPRESSION: Improvement in size of left pneumothorax status post placement of chest tube DATA REPOSITORY: RADIATION DOSE DELIVERED:
--- NOTE | 2022-08-06 13:09 | W.PM.OP ---
Date of service: 08/06/22 Time of Service: 13:09 Operative Note Operative Note DATE OF PROCEDURE: 08/06/22 PRE-OP DIAGNOSIS: Left PTX- recurrent POST-OP DIAGNOSIS: same PROCEDURE: Left percutaneous chest tube placement SURGEON: Savannah Chen ANESTHESIA TYPE: Local By Surgeon ESTIMATED BLOOD LOSS: 2 PATHOLOGY: none sent COMPLICATIONS: None Patient was transported to: no change Patient's condition: stable Indications: Recurrent PTX Procedure Description: After informed consent was obtained the patient was placed in a supine position with his left arm above his head. The left chest was at the mid-axillary line, at the 5th intercostal space was prepped and draped in a standard fashion. 10 cc of Lidocaine was injected into the dermis and subcutaneous tissue at the 4th intercostal space. A small incision was made with an 11 blade at the 4th intercostal space. The percutanous pig tail catheter was then placed without difficulty into the chest cavity. There was air heard coming from the chest tube. The chest tube as attached to water seal. Next the chest tube was secured in place with 2-0 silk suture. The tube was attached to the side of the patients chest wall with tape. The chest tube was then placed to suction. A portable CXR was ordered and is pending at this time. The patient tolerated the procedure well.
--- NOTE | 2022-08-06 14:02 | DI.VRAD_ITS ---
PROCEDURE INFORMATION: Exam: XR Chest Exam date and time: 08/06/2022 1:30 PM Age: 77 years old Clinical indication: Other: Chest tube placement TECHNIQUE: Imaging protocol: Radiologic exam of the chest. Views: 1 view. COMPARISON: CR XR CHEST 2V PA LATERAL 08/06/2022 11:02 AM FINDINGS: Tubes, catheters and devices: Left lower pleural space pigtail catheter. Unchanged large quantity of subcutaneous emphysema. Lungs: Small amount of air in the apical portion of the left upper pleural space. The pneumothorax has decreased in size. No pleural effusion. Large lung volumes. Emphysematous changes in the upper lung zones. No consolidations. Pleural spaces: See Lungs finding. Heart/Mediastinum: Unremarkable. No cardiomegaly. Bones/joints: Unremarkable. IMPRESSION: 1. Tiny-small left apical pneumothorax has reduced in size since introduction of the pleural space pigtail catheter. 2. Large quantity of left subcutaneous emphysema. 3. Severe pulmonary emphysema. Dictated and Authenticated by: Jesús Quintero MD. Ordering:MAGALIE Nuñez MD
--- NOTE | 2022-08-06 16:00 | DI.CT_ITS ---
Exam(s) CT CHEST W EXAM: CT CHEST W CLINICAL HISTORY: increased crepitus after chest tube placement TECHNIQUE: Imaging Protocol: Axial computed tomography images with coronal and sagittal reformatted images were created and reviewed CONTRAST MATERIAL: Intravenous: Omnipaque 350 Contrast volume:structured data ml. COMPARISON: CT CT CHEST LUNG CANCER SCREEN from 02/13/2020 FINDINGS: Pulmonary parenchyma: Severe emphysematous changes, greater in the upper lobes. A large right lower lobe bulla seen medially. Small left pneumothorax. Pigtail catheter seen coiled in the major fissur e. No consolidation. No dominant measurable mass. Tracheobronchial tree: No bronchiectasis or mucous plugging. Mediastinum and Jigna: No dominant adenopathy or fluid collection. Pleura: No effusion or pneumothorax. Heart: The heart is not dilated. Mild coronary artery calcifications are seen. Aorta: Thoracic aorta non-dilated. Atherosclerotic changes. Upper abdomen: Cholelithiasis. Bones: Degenerative changes. No acute fractures. Soft tissues: large amount of air outside the left chest wall.. IMPRESSION: Severe underlying emphysematous changes. Small left pneumothorax. Pigtail catheter coiled in the ma kale fissure. RADIATION DOSE DELIVERED: 594.5mGy.cm Total DLP DATA REPOSITORY: All CT scans at this facility are submitted to the National Radiology Data Registry (NRDR) Dose Index Registry (DIR) with the [employer] (A[employer]). RADIATION OPTIMIZATION: All CT scans at this facility use at least one of these dose optimization te chniques: automated exposure control; mA and/or kV adjustment per patient size (includes targeted exa ms where dose is matched to clinical indication); or iterative reconstruction.
[2022-08-06] MEDS: Omnipaque 350 MG/ML 100 ML BTL IJ (16:24)
[2022-08-06] MEDS: Normal Saline - Diluent 50 ML VIAL IJ (16:26)
[2022-08-06] MEDS: Enoxaparin 40 MG/0.4 ML SYR SC (16:54)
--- NOTE | 2022-08-06 17:05 | DI.VRAD_ITS ---
PROCEDURE INFORMATION: Exam: CT Chest With Contrast; Diagnostic Exam date and time: 08/06/2022 4:28 PM Age: 77 years old Clinical indication: Condition or disease and device placement; Patient HX: Increased crepitus after chest tube placement TECHNIQUE: Imaging protocol: Diagnostic computed tomography of the chest with contrast. 3D rendering (Not supervised by radiologist): MIP and/or 3D reconstructed images were created by the technologist. COMPARISON: CT CHEST LUNG CANCER SCREEN 02/13/2020 1:30 PM FINDINGS: Tubes, catheters and devices: The percutaneous pigtail catheter is looped within the major fissure. There is a large quantity of subcutaneous emphysema. Lungs: The lung volumes are increased. Extensive centrilobular emphysematous changes predominantly in the upper lung zones. There is a large right lower lobe medial paraseptal bulla. Increase in the interstitial markings in the right lung sulcus are consistent with subsegmental atelectasis. No lobar consolidations. There are some areas of fibrosis. Pleural spaces: Small pneumothorax along the apex of the left lung and anteriorly. Pleural effusions. Heart: Heart is normal in size and configuration. No pericardial effusion. Small amount of coronary artery calcification. Lymph nodes: Unremarkable. No enlarged lymph nodes. Vasculature: The vasculature demonstrates diffuse moderate atherosclerotic calcification. No evidence for pulmonary artery hypertension. No aortic aneurysm. Bones/joints: Unremarkable. No acute fracture. Soft tissues: See Tubes, catheters and devices finding. IMPRESSION: 1. Small residual left pneumothorax in the apical pleural space and along the anterior and inferior pleural space. 2. Percutaneous pigtail catheter is looped in the major fissure. 3. Large quantity of subcutaneous emphysema. 4. Severe centrilobular emphysema. No superimposed lobar consolidations. Dictated and Authenticated by: Jesús Quintero MD. Ordering:MAGALIE Nuñez MD
[2022-08-06] MEDS: Normal Saline Flush 10 ML SYR IVP (21:28)
[2022-08-06] MEDS: Ketorolac 15 MG/ML VIAL IVP (21:28)
[2022-08-07] MEDS: Ketorolac 15 MG/ML VIAL IVP ×4 (03:24→20:38)
[2022-08-07] MEDS: Normal Saline Flush 10 ML SYR IVP ×2 (03:24→08:07)
[2022-08-07 06:30] VITALS: BP 113/66; PULSE 99; RESP 18; TEMP 36.2; O2SAT 94
[2022-08-07] MEDS: Budesonide/Formoterol 80/4.5 6.9 GM 60 PUFF INH IH ×2 (07:57→20:37)
[2022-08-07] MEDS: Tiotropium Bromide-Respimat 10 PUFF INH 2 PUFF IH (07:57)
[2022-08-07] MEDS: Nicotine 21 MG/24 HR PATCH TD (08:06)
[2022-08-07] MEDS: buPROPion-CR 150 MG TABCR PO ×2 (08:07→20:38)
--- NOTE | 2022-08-07 08:30 | DI.RAD_ITS ---
Exam(s) XR PORTABLE CHEST AP EXAM: XR PORTABLE CHEST AP CLINICAL HISTORY: chest tube TECHNIQUE: 2D digital imaging was performed. COMPARISON: CT CT CHEST W from 08/06/2022 CR,XR XR PORTABLE CHEST AP POST LINE from 08/06/2022 FINDINGS: No change in position of left-sided pigtail chest tube. LUNGS: Clear. No change in size of small left apical pneumothorax. HEART: Normal size. AORTA: Normal diameter. BONES: Unremarkable for age. Soft tissues: Large amount of air in the soft tissues of the left chest wall, unchanged. IMPRESSION: Stable small left apical pneumothorax. No change in chest tube position. DATA REPOSITORY: RADIATION DOSE DELIVERED:
--- NOTE | 2022-08-07 08:53 | DI.VRAD_ITS ---
PROCEDURE INFORMATION: Exam: XR Chest Exam date and time: 08/07/2022 8:22 AM Age: 77 years old Clinical indication: Other: Eval chest tube TECHNIQUE: Imaging protocol: Radiologic exam of the chest. Views: 1 view. COMPARISON: No relevant prior studies are available for comparison. FINDINGS: Tubes, catheters and devices: Left pigtail chest tube with the distal end projecting over the left mid lung. Lungs: Hyperinflated lungs. Pleural spaces: Small left apical pneumothorax. Heart/Mediastinum: No cardiomegaly. Bones/joints: Grossly unremarkable. Soft tissues: Gas in the left chest wall and neck. IMPRESSION: Left chest tube with pneumothorax. Dictated and Authenticated by: Amberly Gonzales MD. Ordering:MAGALIE Nuñez MD
--- NOTE | 2022-08-07 13:14 | W.PM.PROGNOT ---
Date of Service Date of service: 08/07/22 Time of Service: 09:00 Assessment and Plan Assessment and plan (1) Pneumothorax: Status: Acute Assessment and plan: Recurrent Ptx yesterday. New Chest tube placed. CT scan of chest done because of increased subQ air and continues air leak. CT with minimal PTX and chest tube in the fossa. Today Air leak has decreased but still there. Crepitus is decreased. Will consult Pneumonology tomorrow Subjective Subjective Interval history since last seen: Gregorio is doing OK this morning. No complaints of pain. Sats stable. CXR stable Exam Const General: cooperative, comfortable and no acute distress Nutritional Appearance: thin Orientation: alert and oriented x3 Chest Chest: crepitus (decreased since yesterday) and other (chest tube in good position, + air leak) Resp Effort & Inspection: normal respiratory effort Auscultation: clear to auscultation bilaterally and diminished lung sounds Cardio Rate: regular rate Rhythm: regular rhythm Objective Last Vital Signs Temp 97.2 F L 08/07/22 06:30 Pulse 99 H 08/07/22 06:30 Resp 18 08/07/22 06:30 BP 113/66 08/07/22 06:30 Pulse Ox 94 08/07/22 06:30 Time Spent with Patient Time Spent with Patient: 25-34 minutes Time was spent: indepentently interpreting results and counseling the patient
[2022-08-07 15:19] VITALS: BP 100/63; PULSE 86; RESP 18; TEMP 36.4; O2SAT 94
[2022-08-07] MEDS: Enoxaparin 40 MG/0.4 ML SYR SC (17:05)
[2022-08-07 22:34] VITALS: BP 116/66; PULSE 75; RESP 19; TEMP 36.8; O2SAT 94
[2022-08-08] MEDS: Ketorolac 15 MG/ML VIAL IVP ×4 (02:58→20:39)
--- NOTE | 2022-08-08 06:57 | W.PULMCON ---
General Date Of Service Date of service: 08/08/22 Time of Service: 06:57 Reason for Consult: Pneumothorax with continued air leak Assessment and Plan Assessment and plan (1) COPD (chronic obstructive pulmonary disease): Status: Chronic (2) Pneumothorax: Status: Acute (3) Tobacco abuse disorder: Status: Acute Assessment and plan: This is a 77 yo with emphysematous COPD wh ois admitted for a spontaneous pneumothorax complicated by tube malfunction due to fissure placement and accidental pulling' of the tube. A new pigtail was placed and a repeat scan finds the tube to be in the fissure (not parenchymal penetration). The tube appears to be functioning fine this morning despite its placement. There is no visible bronchopleural fistula that I can see on imaging. POCUS this morning demonstrates a barcode sign on the left and no visible lung slide. His emphysema can complicate this image, however there is evidence of lung sliding on the right so I do beleive the PNX is still present. I am hopeful that since the air leak has improved from prior reports that he will just need more time. If the leak is still present tomorrow, and there is PNX seen on US I would recommend a VATS mechanical pleurodesis in house (echo should be ordered to assess [facility] candidacy) versus transfer for consideration of encobronchial valves or VATS pleurodesis at a tertiary center (if he is deemed to be too high risk). Spontaneous Pneumothorax - appropriate function of current pigtail - continue -[id number] suction - I will repeat POCUS tomorrow morning to assess PNX - if persistance of PNX/air leak tomorrow recommend consideration of VATS pleurodesis vs endobronchial valve placement - echo to assess in house ability for procedure COPD - on Trelegy at home - substitution Symbicort and Spiriva is appropriate - prn nebs - will schedule to see as an outpatient for continued management History of Present Illness Narrative: This is a 77 yo with bullous emphysema with COPD who was admitted 08/03/22 for a spontaneous pneumothorax, likely related to his emphysema. He had a pigtail placed with lung re-expansion. He had been placed on waterseal but developed significant subcutaneous emphysema in the setting of the tube being accidentally pulled (almost fully) out of the chest.A new pigtail was placed and is found to be within the fissure (no penetration into the lung parenchyma from my review of images). He is being treated with Trelegy as an outpatient for COPD and while in hospital has been on Symbicort and Spiriva (formulary). He does have some pain at tube site with movement, but overall seems to be well controlled. He does have a productive cough. Review of Systems All systems reviewed & are unremarkable except as noted in HPI and below PFSH All Active Problems (Updated 08/08/22 @ 08:47 by Faiza Carroll DO) Subcutaneous emphysema (Acute) Persistent air leak (Acute) Ruptured emphysematous bleb of lung (Acute) Discharge planning issues (Acute) Tobacco abuse disorder (Acute) COPD (chronic obstructive pulmonary disease) (Chronic) Pneumothorax (Acute) Social History Smoking/Tobacco Use Status: Current every day Tobacco Type: cigarettes Smoking risk assessment performed?: Yes Alcohol Intake: former Drug use: Never Substance use type: does not use Do you feel safe at home: Yes Do you feel safe in your relationship?: Yes Visit Medication and Allergies Active Medications Generic Name Dose Route Start Last Admin Trade Name Freq PRN Reason Stop Dose Admin Budesonide/Formoterol Fumarate 2 puff 08/03/22 20:00 08/07/22 20:37 Budesonide/Formoterol 80/4.5 6.9 Gm 60 Puff Inh IH 2 puff BID KYLEE Administration Bupropion HCl 150 mg 08/04/22 08:30 08/07/22 20:38 Bupropion-Cr 150 Mg Tabcr PO 150 mg BID KYLEE Administration Device 1 each 08/03/22 19:00 Inhaler, Assist Device DIRECTED KYLEE Dimethicone/Zinc Oxide 0 gm 08/03/22 18:47 Sharita Protect Cream 142 Gm Tube TP PRN PRN Enoxaparin Sodium 40 mg 08/05/22 16:00 08/07/22 17:05 Enoxaparin 40 Mg/0.4 Ml Syr SC 40 mg Q24H KYLEE Administration Hydromorphone HCl 1 mg 08/06/22 20:51 Hydromorphone 2 Mg/Ml Syr IVP Q3H PRN PRN Pain Sodium Chloride 500 mls @ 0 mls/hr 08/05/22 10:44 Saline 500ml Bag IV PRN PRN As Directed IV Miscellaneous Supplies 1 each 08/05/22 10:45 Iv Access IV DIRECTED KYLEE Iohexol 100 ml 08/06/22 16:30 08/06/22 16:24 Omnipaque 350 Mg/Ml 100 Ml Btl IJ 09/05/22 23:59 70 ml DIRECTED KYLEE Administration Ketorolac Tromethamine 15 mg 08/06/22 21:00 08/08/22 02:58 Ketorolac 15 Mg/Ml Vial IVP 08/11/22 20:59 15 mg Q6H KYLEE Administration Levalbuterol HCl 1.25 mg 08/04/22 19:15 08/06/22 05:29 Levalbuterol 1.25 Mg/3 Ml Upd Vial UPD 1.25 mg Q2H PRN PRN Administration Nicotine 21 mg 08/05/22 08:30 08/07/22 08:06 Nicotine 21 Mg/24 Hr Patch TD 21 mg DAILY KYLEE Administration Sodium Chloride 0 ml 08/05/22 10:44 08/07/22 08:07 Normal Saline Flush 10 Ml Syr IVP 10 ml PRN PRN Administration Sodium Chloride 50 ml 08/06/22 16:30 08/06/22 16:26 Normal Saline - Diluent 50 Ml Vial IJ 50 ml .FOR DI USE KYLEE Administration Tiotropium [place] 2 puff 08/05/22 08:30 08/07/22 07:57 Tiotropium [place]-Respimat 10 Puff Inh IH 2 inh DAILY KYLEE Administration Tramadol HCl 50 mg 08/06/22 20:53 Tramadol 50 Mg Tab PO Q6H PRN PRN Pain Allergies No Known Allergies Allergy (Unverified 03/29/14 11:30) Exam Narrative Exam Narrative: Gen: NAD, normal respiratory effort, well-nourished HENT: PERRL Chest: No respiratory distress, normal appearance of chest, Crackles on left (subq air). Chest tube interrogated and functioning appropriately. 1+ air leak with inspiration and coughing. Heart: regular rate and rhythym, no murmurs, rubs or gallops Abdomen: Non-distended, soft, non tender Extremities: No clubbing, There is subcutaneous air present on left chest and to neck Neuro: AAOx3 , non focal Psych: cooperative, appropriate mental affect Results Last Vital Signs Temp 36.8 C 08/07/22 22:34 Pulse 75 08/07/22 22:34 Resp 19 08/07/22 22:34 BP 116/66 08/07/22 22:34 Pulse Ox 94 08/07/22 22:34 Labs 08/04/22 05:32 08/04/22 05:32 Imaging Chest x-ray: report reviewed and image reviewed CT scan - chest: report reviewed and image reviewed Pocus Exam Limited Thoracic Lung Exam DATE OF EXAM: 08/08/22 TIME OF EXAM: 08:00 PROVIDER THAT PERFORMED THE STUDY: Bette Marino IS THIS A REPEAT EXAM DURING THIS ENCOUNTER: No REASON FOR EXAM: Pneumothorax VISUALIZED STRUCTURES: right anterior and left anterior PERTINENT FINDINGS/IMPRESSION: absent lung sliding/left side, B-lines/right side and Pneumothorax (left PNX, barcode sign on M mode); lung sliding left side and no B-Lines/left side DIFFERENTIAL DIAGNOSES: Left Pneumothorax Exam complete
[2022-08-08 07:15] VITALS: BP 112/70; PULSE 80; RESP 16; TEMP 36.5; O2SAT 96
[2022-08-08] MEDS: Tiotropium Bromide-Respimat 10 PUFF INH 2 PUFF IH (08:01)
[2022-08-08] MEDS: Budesonide/Formoterol 80/4.5 6.9 GM 60 PUFF INH IH ×2 (08:01→20:39)
--- NOTE | 2022-08-08 08:30 | DI.RAD_ITS ---
Exam(s) XR PORTABLE CHEST AP EXAM: XR PORTABLE CHEST AP CLINICAL HISTORY: PTX TECHNIQUE: 2D digital imaging was performed of the chest. Two images were obtained. AP views were obtained. COMPARISON: CR,XR XR PORTABLE CHEST AP from 08/07/2022 FINDINGS: MEDIASTINUM: Normal. HEART: Normal. PULMONARY VASCULATURE: Normal. LUNGS: The lungs are hyperinflated consistent with underlying COPD. No focal consolidating infiltrat es are seen. PLEURAL SPACE: The left-sided pneumothorax now measures 3.6 cm from the lung apex versus 2.1 cm. No right pneumothorax is seen. No pleural effusion is present. The left chest tube is stable in positi on. BONE:Within normal limits for the patient's age. OTHER FINDINGS:There is again seen a large amount of air along the left chest wall extending into the lower neck. IMPRESSION: Slight interval increase in size of the left apical pneumothorax. DATA REPOSITORY: RADIATION DOSE DELIVERED:
--- NOTE | 2022-08-08 08:44 | W.PM.PROGNOT ---
Date of Service Date of service: 08/08/22 Time of Service: 08:44 Assessment and Plan Assessment and plan (1) Ruptured emphysematous bleb of lung: Status: Acute Assessment and plan: Persistent air leak.- Continue incentive spirometry and oxygen Appreciate pulmonary's input Continue with conservative medical management check echo If no improvement by Monday- consider transfer to [facility] for VATS , possible bleb resection and pleurodecisis. (2) Persistent air leak: Status: Acute (3) Discharge planning issues: Status: Acute (4) Tobacco abuse disorder: Status: Acute (5) COPD (chronic obstructive pulmonary disease): Status: Chronic (6) Pneumothorax: Status: Acute (7) Subcutaneous emphysema: Status: Acute Subjective Subjective Interval history since last seen: Pt is doing well. no headaches. No CP or SOB. no productive cough. no dysuria. no leg pain or swelling. + air leak. minimal fluid output. Patient has minimal subcutaneous air. Exam Narrative Exam Narrative: PHYSICAL EXAM GENERAL APPEARANCE: Alert, healthy appearance, oriented, x 3,? in no acute distress HYDRATION: Well hydrated HEAD, EYES, EARS, NECK, THROAT: Head is normocephalic, pupils equal, round, reactive to light and accommodation, ocular movement intact, sclera clear and no jaundice. NECK: Trachea midline.? Neck supple.? No JVD LUNGS: normal respiration/normal chest excursion. ?Clear to auscultation bilaterally. ?No wheeze. Minimal subcutaneous air/crepitus confined to the anterior chest wall. Mild tenderness at insertion site. He did not visualize insertion site ?HEART: Regular rate and rhythm. no murmurs EXTREMITY: No edema or cyanosis.? no leg pain, redness, swelling.? ABDOMEN: soft and non-tender to palpation.? Normal bowel sounds.? Objective Last Vital Signs Temp 36.8 C 08/07/22 22:34 Pulse 75 08/07/22 22:34 Resp 19 08/07/22 22:34 BP 116/66 08/07/22 22:34 Pulse Ox 94 08/07/22 22:34 Time Spent with Patient Time Spent with Patient: 35-49 minutes Time was spent: preparing to see the patient(eg.review tests), obtaining and/or reviewing separately otained hiistory, ordering medications,tests, procedures, referring, communicating with other health family day care provider, indepentently interpreting results, counseling the patient and care coordination
[2022-08-08] MEDS: buPROPion-CR 150 MG TABCR PO ×2 (08:57→20:39)
[2022-08-08] MEDS: Nicotine 21 MG/24 HR PATCH TD (08:57)
[2022-08-08 12:01] LABS: HGB 13.5 g/dL (13.5-17.5); MCH 32.1 pg (27.0-33.0); MCHC 34.6 % (32.0-36.0); MCV 93 fL (80-95); MPV 8.9 fL (8.0-11.0); Platelet Count 222 10^3/uL (130-400); RBC 4.21 10^6/uL (4.36-5.78); RDW 12.8 % (11.8-14.1); RDW-SD 43.8 fL; WBC 8.31 10^3/uL (4.4-10.8)
--- NOTE | 2022-08-08 12:07 | PDOC.CMPRO ---
- If Service Date Differs Date of service: 08/08/22 Time of Service: 12:07 Care Management Progress Note S/O: Gregorio was resting when CM attempted to meet with him. Per report, he continues to be closely monitored and treated with conservative medical management. If he isn't significantly improved by Monday, MD will consider transfer to [facility] [place] for VATS, possible bleb resection and pleurodecisis. CM will continue to follow. A: Gregorio is a 77 year old male admitted to [facility] on 08/03/22 with pneumothorax. P: Anticipate Gregorio will return home once medically cleared. His friend will likely drive him home via private vehicle. He will follow up with his PCP and discharge plan of care. CM will continue to follow.
[2022-08-08 14:56] VITALS: BP 113/72; PULSE 78; RESP 16; TEMP 36.6; O2SAT 95
[2022-08-08] MEDS: Normal Saline Flush 10 ML SYR IVP ×2 (15:21→16:29)
[2022-08-08] MEDS: Enoxaparin 40 MG/0.4 ML SYR SC (16:28)
[2022-08-08 16:46] VITALS: O2SAT 95
[2022-08-08 23:10] VITALS: BP 124/75; PULSE 80; RESP 18; TEMP 35.7; O2SAT 92
--- NOTE | 2022-08-09 | DI.US_ITS ---
APPROVED REPORT EXAM: Comprehensive 2D, Doppler, and color-flow Echocardiogram Patient Location: In-Patient Room/Bed: 210 Software Quality Assurance Specialist: Natty Fernandez RDCS (AE) Indications: PTX, may need VATS, SOB, Smoker, COPD Other Information Study Quality: Technically Limited. Technically limited study due to body habitus, inability to posit ion patient, post operative dressings. Conclusion Limited study Left ventricular chamber size wall thickness and systolic function appear within the range of normal Right ventricular function appears normal Both atria appear normal in size Study is not adequate to confirm or exclude any significant valvular disease Wall motion Left Ventricle Very limited imaging. Patient has a bandaged chest. The overall left ventricular systolic function ap pears normal. There is no ventricular septal defect visualized. Atria The interatrial septum is intact with no evidence for an atrial septal defect. Great Vessels IVC is normal in size and collapses >50% with inspiration. Pericardium There is no pericardial effusion.
[2022-08-09] MEDS: Ketorolac 15 MG/ML VIAL IVP ×4 (02:57→21:47)
--- NOTE | 2022-08-09 07:19 | W.PULMPROG ---
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 A new pigtail was placed and a repeat scan finds the tube to be in the fissure (no parenchymal penetration). The tube appears to be functioning well. There is no visible bronchopleural fistula that I can see on imaging. His air leak is slightly improved this morning as compared to yesterday, so I am hopeful that it may be resolved completely tomorrow. The subq emphysema has not worsened, but has migrated to the left. On POCUS this morning, there is still minimal to no lung slide on the left with a barcode sign. He has bullae so lung slide may be a challenge to assess. Spontaneous Pneumothorax - appropriate function of current pigtail - continue -[id number] suction - if any air leak tomorrow then would recommend endobronchial valves (Interventional Pulmonary) or mechanical VATS pleurodesis - recommend he remain on 2LPM O2 to help with PNX resorption COPD - on Trelegy at home - substitution Symbicort and Spiriva is appropriate - prn nebs - will schedule to see as an outpatient for continued management General Date Of Service Date of service: 08/09/22 Time of Service: 07:19 Reason for Consult: Pneumothorax with continued air leak Subjective 24 Hour Events: Gregorio is doing well. His O2 was almost weaned completely off - I discussed with RN about leaving him on 2LPM as this will help with PNX resorption. Exam Narrative Exam Narrative: Gen:?NAD, normal respiratory effort, well-nourished HENT:?PERRL Chest:?No respiratory distress, normal appearance of chest, Crackles on left (subq air). Chest tube interrogated and functioning appropriately. Decreased air leak, but still present with soft coughing and deep breathing. Heart:?regular rate and rhythym, no murmurs, rubs or gallops Abdomen:?Non-distended, soft, non tender Extremities:?No clubbing, There is subcutaneous air present on left chest and to neck with spread to the right chest Neuro:?AAOx3 , non focal Psych:?cooperative, appropriate mental affect Objective Last Vital Signs Temp 35.7 C L 08/08/22 23:10 Pulse 80 08/08/22 23:10 Resp 18 08/08/22 23:10 BP 124/75 08/08/22 23:10 Pulse Ox 92 08/08/22 23:10 Laboratory Results - last 24 hr 08/08/22 11:53 WBC 8.31 RBC 4.21 L Hgb 13.5 Hct 39.0 L MCV 93 MCH 32.1 MCHC 34.6 RDW 12.8 Plt Count 222 MPV 8.9 Results Medications Medications: Active Medications Generic Name Dose Route Start Last Admin Trade Name Freq PRN Reason Stop Dose Admin Budesonide/Formoterol Fumarate 2 puff 08/03/22 20:00 08/08/22 20:39 Budesonide/Formoterol 80/4.5 6.9 Gm 60 Puff Inh IH 2 puff BID KYLEE Administration Bupropion HCl 150 mg 08/04/22 08:30 08/08/22 20:39 Bupropion-Cr 150 Mg Tabcr PO 150 mg BID KYLEE Administration Device 1 each 08/03/22 19:00 Inhaler, Assist Device MC DIRECTED KYLEE Dimethicone/Zinc Oxide 0 gm 08/03/22 18:47 Sharita Protect Cream 142 Gm Tube TP PRN PRN Enoxaparin Sodium 40 mg 08/05/22 16:00 08/08/22 16:28 Enoxaparin 40 Mg/0.4 Ml Syr SC 40 mg Q24H KYLEE Administration Hydromorphone HCl 1 mg 08/06/22 20:51 Hydromorphone 2 Mg/Ml Syr IVP Q3H PRN PRN Pain Sodium Chloride 500 mls @ 0 mls/hr 08/05/22 10:44 Saline 500ml Bag IV PRN PRN As Directed IV Miscellaneous Supplies 1 each 08/05/22 10:45 Iv Access IV DIRECTED KYLEE Ketorolac Tromethamine 15 mg 08/06/22 21:00 08/09/22 02:57 Ketorolac 15 Mg/Ml Vial IVP 08/11/22 20:59 15 mg Q6H KYLEE Administration Levalbuterol HCl 1.25 mg 08/04/22 19:15 08/06/22 05:29 Levalbuterol 1.25 Mg/3 Ml Upd Vial UPD 1.25 mg Q2H PRN PRN Administration Nicotine 21 mg 08/05/22 08:30 08/08/22 08:57 Nicotine 21 Mg/24 Hr Patch TD 21 mg DAILY KYLEE Administration Sodium Chloride 0 ml 08/05/22 10:44 08/08/22 16:29 Normal Saline Flush 10 Ml Syr IVP 10 ml PRN PRN Administration Tiotropium Fourmile 2 puff 08/05/22 08:30 08/08/22 08:01 Tiotropium Fourmile-Respimat 10 Puff Inh IH 2 inh DAILY KYLEE Administration Tramadol HCl 50 mg 08/06/22 20:53 Tramadol 50 Mg Tab PO Q6H PRN PRN Pain Allergies No Known Allergies Allergy (Unverified 03/29/14 11:30) Labs 08/08/22 11:53 08/04/22 05:32 Labs: Laboratory Tests Range/Units 08/03/22 08/03/22 08/03/22 16:40 16:40 16:40 WBC (4.4-10.8) 10^3/uL 13.51 H RBC (4.36-5.78) 10^6/uL 4.79 Hgb (13.5-17.5) g/dL 15.3 Hct (40.0-50.0) % 43.7 MCV (80-95) fL 91 MCH (27.0-33.0) pg 31.9 MCHC (32.0-36.0) % 35.0 RDW (11.8-14.1) % 12.3 Plt Count (130-400) 10^3/uL 272 MPV (8.0-11.0) fL 8.8 Immature Gran % 0.3 Neutrophils % 91.6 Lymphocytes % 3.8 Monocytes % 4.0 Eosinophils % 0.1 Basophils % 0.2 Nucleated RBC % (0.0-0.3) % 0.0 Absolute Neutrophils (1.2-6.7) 10^3/uL 12.38 H Absolute Lymphocytes (1.2-3.4) 10^3/uL 0.51 L Absolute Monocytes (0.1-0.8) 10^3/uL 0.54 Absolute Eosinophils (0.0-0.7) 10^3/uL 0.01 Absolute Basophils (0.0-0.2) 10^3/uL 0.03 VBG pH (7.31-7.41) 7.28 L VBG pCO2 (41-51) mmHg 54 H VBG pO2 mmHg 41 VBG HCO3 (23-28) mmol/L 25 VBG Total CO2 (24-29) mmol/L 23 L VBG O2 Saturation % 73 VBG Base Excess (-2-3) mmol/L -1 Sodium (136-145) mmol/L 138 Potassium (3.5-5.1) mmol/L 4.3 Chloride (98-107) mmol/L 100 Carbon Dioxide (21.0-32.0) mmol/L 26.8 Anion Gap (3-11) mmol/L 11.2 H BUN (7-18) mg/dL 23 H Creatinine (0.70-1.30) mg/dL 1.3 Est GFR (CKD-EPI 2020) (mL/min/1.73m2) 56.58 Glucose (74-106) mg/dL 169 H Calcium (8.5-10.1) mg/dL 9.4 Magnesium (1.8-2.4) mg/dL 1.9 Total Bilirubin (0.2-1.0) mg/dL 0.7 AST (15-37) U/L 16 ALT (16-63) U/L 22 Alkaline Phosphatase (46-116) U/L 73 Troponin I (<or=60) ng/L < 50 Total Protein (6.4-8.2) g/dL 7.9 Albumin (3.4-5.0) g/dL 4.0 COVID-19 Source SARS-CoV-2 (PCR) (Negative) Range/Units 08/03/22 08/04/22 08/04/22 20:11 05:32 05:32 WBC (4.4-10.8) 10^3/uL 7.83 RBC (4.36-5.78) 10^6/uL 4.17 L Hgb (13.5-17.5) g/dL 13.4 L Hct (40.0-50.0) % 38.8 L MCV (80-95) fL 93 MCH (27.0-33.0) pg 32.1 MCHC (32.0-36.0) % 34.5 RDW (11.8-14.1) % 12.5 Plt Count (130-400) 10^3/uL 182 MPV (8.0-11.0) fL 10.0 Immature Gran % 0.3 Neutrophils % 87.0 Lymphocytes % 5.7 Monocytes % 6.9 Eosinophils % 0.0 Basophils % 0.1 Nucleated RBC % (0.0-0.3) % 0.0 Absolute Neutrophils (1.2-6.7) 10^3/uL 6.81 H Absolute Lymphocytes (1.2-3.4) 10^3/uL 0.45 L Absolute Monocytes (0.1-0.8) 10^3/uL 0.54 Absolute Eosinophils (0.0-0.7) 10^3/uL 0.00 Absolute Basophils (0.0-0.2) 10^3/uL 0.01 VBG pH (7.31-7.41) VBG pCO2 (41-51) mmHg VBG pO2 mmHg VBG HCO3 (23-28) mmol/L VBG Total CO2 (24-29) mmol/L VBG O2 Saturation % VBG Base Excess (-2-3) mmol/L Sodium (136-145) mmol/L 137 Potassium (3.5-5.1) mmol/L 4.2 Chloride (98-107) mmol/L 103 Carbon Dioxide (21.0-32.0) mmol/L 25.6 Anion Gap (3-11) mmol/L 8.4 BUN (7-18) mg/dL 23 H Creatinine (0.70-1.30) mg/dL 1.0 Est GFR (CKD-EPI 2020) (mL/min/1.73m2) 77.52 Glucose (74-106) mg/dL 155 H Calcium (8.5-10.1) mg/dL 8.9 Magnesium (1.8-2.4) mg/dL Total Bilirubin (0.2-1.0) mg/dL 0.4 AST (15-37) U/L 22 ALT (16-63) U/L 22 Alkaline Phosphatase (46-116) U/L 58 Troponin I (<or=60) ng/L Total Protein (6.4-8.2) g/dL 6.6 Albumin (3.4-5.0) g/dL 3.2 L COVID-19 Source Nasal/Nares SARS-CoV-2 (PCR) (Negative) Negative Range/Units 08/04/22 08/08/22 05:35 11:53 WBC (4.4-10.8) 10^3/uL 8.31 RBC (4.36-5.78) 10^6/uL 4.21 L Hgb (13.5-17.5) g/dL 13.5 Hct (40.0-50.0) % 39.0 L MCV (80-95) fL 93 MCH (27.0-33.0) pg 32.1 MCHC (32.0-36.0) % 34.6 RDW (11.8-14.1) % 12.8 Plt Count (130-400) 10^3/uL 222 MPV (8.0-11.0) fL 8.9 Immature Gran % Neutrophils % Lymphocytes % Monocytes % Eosinophils % Basophils % Nucleated RBC % (0.0-0.3) % Absolute Neutrophils (1.2-6.7) 10^3/uL Absolute Lymphocytes (1.2-3.4) 10^3/uL Absolute Monocytes (0.1-0.8) 10^3/uL Absolute Eosinophils (0.0-0.7) 10^3/uL Absolute Basophils (0.0-0.2) 10^3/uL VBG pH (7.31-7.41) VBG pCO2 (41-51) mmHg VBG pO2 mmHg VBG HCO3 (23-28) mmol/L VBG Total CO2 (24-29) mmol/L VBG O2 Saturation % VBG Base Excess (-2-3) mmol/L Sodium (136-145) mmol/L Cancelled Potassium (3.5-5.1) mmol/L Cancelled Chloride (98-107) mmol/L Cancelled Carbon Dioxide (21.0-32.0) mmol/L Cancelled Anion Gap (3-11) mmol/L Cancelled BUN (7-18) mg/dL Cancelled Creatinine (0.70-1.30) mg/dL Cancelled Est GFR (CKD-EPI 2020) (mL/min/1.73m2) Cancelled Glucose (74-106) mg/dL Cancelled Calcium (8.5-10.1) mg/dL Cancelled Magnesium (1.8-2.4) mg/dL Total Bilirubin (0.2-1.0) mg/dL AST (15-37) U/L ALT (16-63) U/L Alkaline Phosphatase (46-116) U/L Troponin I (<or=60) ng/L Total Protein (6.4-8.2) g/dL Albumin (3.4-5.0) g/dL COVID-19 Source SARS-CoV-2 (PCR) (Negative) Pocus Exam Limited Thoracic Lung Exam DATE OF EXAM: 08/09/22 TIME OF EXAM: 07:45 PROVIDER THAT PERFORMED THE STUDY: Bette Marino IS THIS A REPEAT EXAM DURING THIS ENCOUNTER: Yes Same provider (assessing improvement of PNX) REASON FOR EXAM: Hypoxia and Pneumothorax VISUALIZED STRUCTURES: right anterior and left anterior PERTINENT FINDINGS/IMPRESSION: absent lung sliding/left side (barcode sign) DIFFERENTIAL DIAGNOSES: Left PNX likely still present Exam complete
[2022-08-09 07:27] VITALS: BP 134/78; PULSE 78; RESP 16; TEMP 36.2; O2SAT 96
[2022-08-09] MEDS: buPROPion-CR 150 MG TABCR PO ×2 (08:11→20:27)
[2022-08-09] MEDS: Nicotine 21 MG/24 HR PATCH TD (08:11)
[2022-08-09] MEDS: Budesonide/Formoterol 80/4.5 6.9 GM 60 PUFF INH IH ×2 (08:36→20:27)
[2022-08-09] MEDS: Tiotropium Bromide-Respimat 10 PUFF INH 2 PUFF IH (08:37)
--- NOTE | 2022-08-09 09:15 | DI.RAD_ITS ---
Exam(s) XR PORTABLE CHEST AP EXAM: XR PORTABLE CHEST AP CLINICAL HISTORY: PTX TECHNIQUE: 2D digital imaging was performed of the chest. Two images were obtained. AP views were obtained. COMPARISON: CR,XR XR PORTABLE CHEST AP from 08/07/2022 CR XR PORTABLE CHEST AP from 08/08/2022 FINDINGS: There has been a significant increase in the subcutaneous air which now involves the right chest wall in addition to the left chest wall and left neck. MEDIASTINUM: Normal. HEART: Normal. PULMONARY VASCULATURE: Normal. LUNGS: No definite focal consolidating infiltrates are seen. The lungs are hyperinflated suggesting underlying COPD. PLEURAL SPACE: No pleural effusion is seen. There does appear to be a persistent small left apical p neumothorax. No right apical pneumothorax is seen. The left chest tube is stable in position. BONE:Within normal limits for the patient's age. OTHER FINDINGS:Normal. IMPRESSION: 1. Interval worsening of the subcutaneous emphysema, which now not only involves the left chest wall and neck, but the right chest wall. 2. Persistent small left apical pneumothorax. 3. Stable position of the left chest tube. DATA REPOSITORY: RADIATION DOSE DELIVERED:
--- NOTE | 2022-08-09 10:39 | W.PM.PROGNOT ---
Date of Service Date of service: 08/09/22 Time of Service: 10:39 Assessment and Plan Assessment and plan (1) Ruptured emphysematous bleb of lung: Status: Acute Assessment and plan: No air leak noted this morning. Will continue to moniter. Continue incentive spirometry and oxygen Encouraged activity OOB, sitting in the chair and ambulation as tolerated. Continue with conservative medical management Will continue to monitor him closely, would consider transfer to [facility] for VATS , possible bleb resection and pleurodecisis if no improvement or persistent air leak. (2) Persistent air leak: Status: Acute (3) Discharge planning issues: Status: Acute (4) Tobacco abuse disorder: Status: Acute (5) COPD (chronic obstructive pulmonary disease): Status: Chronic (6) Pneumothorax: Status: Acute (7) Subcutaneous emphysema: Status: Acute Subjective Subjective Interval history since last seen: Arrive with the patient resting comfortably in bed, eating breakfast. He denies having any pain at this time. He denies having any SOB. Exam Const General: cooperative, healthy appearing and comfortable Orientation: alert and awake Resp Effort & Inspection: normal respiratory effort, no audible wheezes and no cough Other: Chest tube in place on suction. No air leak noted with deep breathing, coughing or talking. Tubing is secured. Objective Last Vital Signs Temp 36.2 C L 08/09/22 07:27 Pulse 78 08/09/22 07:27 Resp 16 08/09/22 07:27 BP 134/78 08/09/22 07:27 Pulse Ox 96 08/09/22 07:27 Laboratory Results - last 24 hr 08/08/22 11:53 WBC 8.31 RBC 4.21 L Hgb 13.5 Hct 39.0 L MCV 93 MCH 32.1 MCHC 34.6 RDW 12.8 Plt Count 222 MPV 8.9 Time Spent with Patient Time Spent with Patient: <25 minutes Time was spent: preparing to see the patient(eg.review tests) and counseling the patient
--- NOTE | 2022-08-09 11:47 | CMPROGNOTE_ITS ---
- If Service Date Differs Date of service: 08/09/22 Time of Service: 11:47 Care Management Progress Note S/O: Dmitry was sitting up in his chair when CM met with him. He stated that he is feeling good, and is looking forward to returning home. He reported that per MD, he may need to be transferred to [facility] for a procedure, and that he is not looking forward to that. He stated that he has been to [facility] before, and was inpatient for three weeks and then sent to SNF for short term rehab, which he di d not enjoy. He is hoping to return home and not have to go to rehab after this admission. CM will continue to follow. A: Gregorio is a 77 year old male admitted to [facility] on 08/03/22 with pneumothorax. P: Anticipate Gregorio will return home once medically cleared. His friend will likely drive him home via private vehicle. He will follow up with his PCP and discharge plan of care. CM will continue to follow.
[2022-08-09] MEDS: Bisacodyl 10 MG SUPP PR (14:41)
[2022-08-09 15:24] VITALS: BP 124/74; PULSE 76; RESP 18; TEMP 36.5; O2SAT 98
--- NOTE | 2022-08-09 15:37 | CHAPLAIN ---
Gregorio was up in the chair watching tv when I visited. I introduced myself and he said I don't need you yet. I explained that I visit everyone and he later said to stop in any time. Gregorio said he's been in touch with family by phone.
[2022-08-09] MEDS: Enoxaparin 40 MG/0.4 ML SYR SC (17:14)
[2022-08-09 19:35] VITALS: RESP 16; O2SAT 96
[2022-08-09 21:46] VITALS: RESP 16; O2SAT 94
[2022-08-10] VITALS (7 sets, daily range): BP systolic 90–126; BP diastolic 48–72; PULSE 65–78; RESP 16–20; TEMP 35.6–36.6; O2SAT 93–99
[2022-08-10] MEDS: Ketorolac 15 MG/ML VIAL IVP ×4 (05:13→21:15)
[2022-08-10] MEDS: buPROPion-CR 150 MG TABCR PO ×2 (07:39→21:15)
[2022-08-10] MEDS: Nicotine 21 MG/24 HR PATCH TD (07:39)
[2022-08-10] MEDS: Tiotropium Bromide-Respimat 10 PUFF INH 2 PUFF IH (08:28)
--- NOTE | 2022-08-10 08:30 | DI.RAD_ITS ---
Exam(s) XR PORTABLE CHEST AP EXAM: XR PORTABLE CHEST AP CLINICAL HISTORY: PTX TECHNIQUE: 2D digital imaging was performed. COMPARISON: CR XR PORTABLE CHEST AP from 08/09/2022 FINDINGS: Left chest tube is unchanged in position. There has been further increase in size of the left pneumo thorax when compared with the prior however remains small. Underlying severe emphysematous changes. Large amount of air outside the chest wall remains present. No infiltrates or effusions visible. IMPRESSION: Mild interval increase in size of left pneumothorax. DATA REPOSITORY: RADIATION DOSE DELIVERED:
[2022-08-10] MEDS: Budesonide/Formoterol 80/4.5 6.9 GM 60 PUFF INH IH ×2 (08:31→21:15)
[2022-08-10] MEDS: Docusate Sodium 100 MG CAP PO ×2 (09:35→21:15)
--- NOTE | 2022-08-10 09:55 | PGE_ITS ---
Date of Service Date of service: 08/10/22 Time of Service: 07:01 Assessment and Plan Assessment and plan (1) Ruptured emphysematous bleb of lung: Status: Acute Assessment and plan: Intermittent air leak noted. Chest tube in place on suction. Awaiting AM chest X-Ray Continue incentive spirometry and oxygen Encouraged activity OOB, sitting in the chair and ambulation as tolerated. Continue with conservative medical management Late entry: Patient seen yesterday at 4:30 pm yesterday he is doing well Agree with above He unfortunately still has a leak. [facility] has no beds Called [facility] and spoke to their thoracic surgeon. She would take him but they also have no beds. She didnt have any other ideas. Agrees that he needs a VATS and mechanical pleuredises Will call [facility] tomorrow and Monday to see if a bed opens up. If no beds then will place him on our schedule for Monday once Dr. Rasmussen is back from vacation. (2) Persistent air leak: Status: Acute (3) Discharge planning issues: Status: Acute (4) Tobacco abuse disorder: Status: Acute (5) COPD (chronic obstructive pulmonary disease): Status: Chronic (6) Pneumothorax: Status: Acute (7) Subcutaneous emphysema: Status: Acute Subjective Subjective Interval history since last seen: patient reports he is feeling well. Denies having any discomfort or SOB. He states he has been watching his SP02 which has ranged from 94-96%. Exam Const General: cooperative, healthy appearing and comfortable Orientation: alert and oriented x3 Resp Effort & Inspection: normal respiratory effort, no audible wheezes and no cough Other: Chest tube in place, on wall suction. Objective Last Vital Signs Temp 36.4 C L 08/10/22 07:42 Pulse 78 08/10/22 07:42 Resp 16 08/10/22 07:42 BP 111/70 08/10/22 07:45 Pulse Ox 93 08/10/22 08:29 Time Spent with Patient Time Spent with Patient: 25-34 minutes Time was spent: referring, communicating with other health health care manager and counseling the patient
--- NOTE | 2022-08-10 13:22 | PDOC.CMPRO ---
- If Service Date Differs Date of service: 08/10/22 Time of Service: 13:22
--- NOTE | 2022-08-10 14:39 | PDOC.CMPRO ---
- If Service Date Differs Date of service: 08/10/22 Time of Service: 14:39 Care Management Progress Note S/O: Dmitry was sitting up in his chair when CM met with him. He reported that he has not heard any more conversation about going to [facility] today. He stated that he is agreeable to going to [facility], although it is not his preference. 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 CM stated that if he is to transfer, it would likely be by EMS, not helicopter. Dmitry stated that he has several stairs to get into his apartment, and expressed some concern about being able to manage the stairs while carrying groceries. CM suggested a PT consult to evaluate his functional mobility. He stated that he feels confident that he can manage the stairs, and has support from friends/neighbors to help carry his groceries for a while post hospitalization. He is not interested in short term rehab. CM will continue to follow. A: Gregorio is a 77 year old male admitted to [facility] on 08/03/22 with pneumothorax. P: Anticipate Gregorio will return home once medically cleared. His friend will likely drive him home via private vehicle. He will follow up with his PCP and discharge plan of care. CM will continue to follow.
[2022-08-10] MEDS: Enoxaparin 40 MG/0.4 ML SYR SC (15:08)
--- NOTE | 2022-08-11 | DI.RAD_ITS ---
Exam(s) XR PORTABLE CHEST AP EXAM: XR PORTABLE CHEST AP CLINICAL HISTORY: ptx/increse phlegm TECHNIQUE: 2D digital imaging was performed of the chest. One image was obtained. An AP view was ob tained. COMPARISON: CR XR PORTABLE CHEST AP from 08/10/2022 FINDINGS: MEDIASTINUM: Normal. HEART: Normal. PULMONARY VASCULATURE: Normal. LUNGS: Clear. PLEURAL SPACE: There has been no change in size of the left pneumothorax since 08/10/2022. There is a left chest tube again noted. BONE:Within normal limits for the patient's age. OTHER FINDINGS:There is again seen extensive subcutaneous air in the chest wall, left greater than ri ght. IMPRESSION: 1. Persistent left pneumothorax. 2. Extensive subcutaneous air. DATA REPOSITORY: RADIATION DOSE DELIVERED:
[2022-08-11 06:19] VITALS: BP 111/67; PULSE 82; RESP 18; TEMP 37.2; O2SAT 92
[2022-08-11 07:00] LABS: HCT 39.9 % (40.0-50.0); HGB 13.6 g/dL (13.5-17.5); MCH 31.9 pg (27.0-33.0); MCHC 34.1 % (32.0-36.0); MCV 94 fL (80-95); MPV 8.5 fL (8.0-11.0); Platelet Count 238 10^3/uL (130-400); RBC 4.26 10^6/uL (4.36-5.78); RDW 12.6 % (11.8-14.1); RDW-SD 43.4 fL; WBC 9.15 10^3/uL (4.4-10.8)
[2022-08-11] MEDS: Docusate Sodium 100 MG CAP PO ×2 (07:25→21:55)
[2022-08-11] MEDS: Nicotine 21 MG/24 HR PATCH TD (07:25)
[2022-08-11] MEDS: buPROPion-CR 150 MG TABCR PO ×2 (07:25→21:55)
[2022-08-11] MEDS: Tiotropium Bromide-Respimat 10 PUFF INH 2 PUFF IH (08:14)
[2022-08-11] MEDS: Budesonide/Formoterol 80/4.5 6.9 GM 60 PUFF INH IH ×2 (08:14→19:27)
--- NOTE | 2022-08-11 08:51 | W.PM.PROGNOT ---
Date of Service Date of service: 08/11/22 Time of Service: 08:51 Assessment and Plan Assessment and plan (1) Subcutaneous emphysema: Status: Acute Assessment and plan: resolved (2) Persistent air leak: Status: Acute Assessment and plan: plan sx at [facility] on Monday cont pulm toilet and supportive care case was scheduled w/ OR. (3) Ruptured emphysematous bleb of lung: Status: Acute (4) Tobacco abuse disorder: Status: Acute (5) COPD (chronic obstructive pulmonary disease): Status: Chronic (6) Pneumothorax: Status: Acute Subjective Subjective Patient reports: other Interval history since last seen: Patient still has leak. He is coughing up phlegm. He states that slightly more than he usually has at home. He would prefer to stay and have his surgery at [facility]. Pt is doing well. no headaches. No CP no dysuria. no leg pain or swelling. He did have a BM Exam Const General: cooperative, comfortable and no acute distress Orientation: alert, awake and oriented x3 Chest Other: emphysema of left chest wall Resp Effort & Inspection: normal respiratory effort and able to speak in complete sentences Other: clear on right side Cardio Rate: regular rate Rhythm: regular rhythm GI Palpation: soft and nontender Extrem General: no clubbing, cyanosis or edema Objective Last Vital Signs Temp 37.2 C 08/11/22 06:19 Pulse 82 08/11/22 06:19 Resp 18 08/11/22 06:19 BP 111/67 08/11/22 06:19 Pulse Ox 92 08/11/22 06:19 Laboratory Results - last 24 hr 08/11/22 06:30 WBC 9.15 RBC 4.26 L Hgb 13.6 Hct 39.9 L MCV 94 MCH 31.9 MCHC 34.1 RDW 12.6 Plt Count 238 MPV 8.5 Time Spent with Patient Time Spent with Patient: 25-34 minutes Time was spent: preparing to see the patient(eg.review tests), obtaining and/or reviewing separately otained hiistory, ordering medications,tests, procedures, referring, communicating with other health sub acute care nurse, indepentently interpreting results, counseling the patient and care coordination
[2022-08-11] MEDS: Ketorolac 15 MG/ML VIAL IVP ×3 (09:21→21:55)
--- NOTE | 2022-08-11 12:08 | CMPROGNOTE_ITS ---
- If Service Date Differs Date of service: 08/11/22 Time of Service: 12:08 Care Management Progress Note S/O: Per report, Dmitry prefers to stay at [facility]; transfer efforts to [facility] and [facility] have so far, been unsuccessful. If he remains at [facility], anticipate he will be brought to surgery on Monday when Dr. Rasmussen returns. CM will continue to follow. A: Gregorio is a 77 year old male admitted to [facility] on 08/03/22 with pneumothorax. P: Anticipate Gregorio will return home once medically cleared. His friend will likely drive him home via private vehicle. He will follow up with his PCP and discharge plan of care. CM will continue to follow.
--- NOTE | 2022-08-11 12:08 | PDOC.CMPRO ---
- If Service Date Differs Date of service: 08/11/22 Time of Service: 12:08 Care Management Progress Note S/O: Per report, Dmitry prefers to stay at [facility]; transfer efforts to [facility] and [facility] have so far, been unsuccessful. If he remains at [facility], anticipate he will be brought to surgery on Monday when Dr. Rasmussen returns. CM will continue to follow. A: Gregorio is a 77 year old male admitted to [facility] on 08/03/22 with pneumothorax. P: Anticipate Gregorio will return home once medically cleared. His friend will likely drive him home via private vehicle. He will follow up with his PCP and discharge plan of care. CM will continue to follow.
[2022-08-11 15:05] VITALS: RESP 18; O2SAT 94
[2022-08-11 15:15] VITALS: BP 99/59; PULSE 75; RESP 16; TEMP 36.9; O2SAT 98
[2022-08-11] MEDS: Normal Saline Flush 10 ML SYR IVP (16:43)
[2022-08-11] MEDS: Enoxaparin 40 MG/0.4 ML SYR SC (16:43)
[2022-08-11 23:32] VITALS: BP 104/65; PULSE 82; RESP 16; TEMP 36.3; O2SAT 92
[2022-08-12 03:43] VITALS: PULSE 71; RESP 17; O2SAT 92
[2022-08-12 07:54] VITALS: BP 122/67; PULSE 83; RESP 18; TEMP 36.6; O2SAT 95
[2022-08-12] MEDS: Docusate Sodium 100 MG CAP PO ×2 (07:57→19:59)
[2022-08-12] MEDS: buPROPion-CR 150 MG TABCR PO ×2 (07:58→19:59)
[2022-08-12] MEDS: Nicotine 21 MG/24 HR PATCH TD (07:58)
[2022-08-12] MEDS: Budesonide/Formoterol 80/4.5 6.9 GM 60 PUFF INH IH ×2 (08:19→19:34)
[2022-08-12] MEDS: Tiotropium Bromide-Respimat 10 PUFF INH 2 PUFF IH (08:19)
--- NOTE | 2022-08-12 10:44 | CMPROGNOTE_ITS ---
- If Service Date Differs Date of service: 08/12/22 Time of Service: 10:44 Care Management Progress Note S/O: Dmitry was sitting up in bed when CM met with him. He stated that per MD, he will likely remain at [facility] until Monday, when a surgeon is available to perform a VATS procedure, unless a bed becomes available at a tertiary facility prior to Monday. He stated that he prefers to have the procedure at [facility], if possible. He stated that he is comfortable, and he is happy with the care at [facility]. CM will continue to follow. A: Gregorio is a 77 year old male admitted to [facility] on 08/03/22 with pneumothorax. P: Anticipate Gregorio will return home once medically cleared. His friend will likely drive him home via private vehicle. He will follow up with his PCP and discharge plan of care. CM will continue to follow.
[2022-08-12 14:47] VITALS: BP 123/72; PULSE 83; RESP 19; TEMP 36.9; O2SAT 94
[2022-08-12] MEDS: Ketorolac 15 MG/ML VIAL IVP ×2 (16:13→21:20)
[2022-08-12] MEDS: Normal Saline Flush 10 ML SYR IVP ×2 (16:13→21:20)
[2022-08-12] MEDS: Enoxaparin 40 MG/0.4 ML SYR SC (16:14)
--- NOTE | 2022-08-12 16:36 | W.PM.PROGNOT ---
Date of Service Date of service: 08/12/22 Time of Service: 13:30 Assessment and Plan Assessment and plan (1) Subcutaneous emphysema: Status: Acute Assessment and plan: VATS w/ bleb resection and pleurodesis on Monday (2) Persistent air leak: Status: Acute (3) Ruptured emphysematous bleb of lung: Status: Acute (4) Discharge planning issues: Status: Acute (5) Tobacco abuse disorder: Status: Acute (6) COPD (chronic obstructive pulmonary disease): Status: Chronic (7) Pneumothorax: Status: Acute Subjective Subjective Interval history since last seen: Pt is doing well. no headaches. No CP or SOB. no productive cough. no dysuria. no leg pain or swelling. pt still has air leak- though slightly less today. minimal serious output from tube. Minimal subcutaneous emphysema on ACW -left. lungs are otherwise clear. Objective Last Vital Signs Temp 36.9 C 08/12/22 14:47 Pulse 83 08/12/22 14:47 Resp 19 08/12/22 14:47 BP 123/72 08/12/22 14:47 Pulse Ox 94 08/12/22 14:47 Time Spent with Patient Time Spent with Patient: 25-34 minutes Time was spent: preparing to see the patient(eg.review tests), obtaining and/or reviewing separately otained hiistory, ordering medications,tests, procedures, referring, communicating with other health coronary care unit nurse, indepentently interpreting results, counseling the patient, care coordination and other
[2022-08-12 18:51] VITALS: BP 113/72; PULSE 73; RESP 18; TEMP 36.3; O2SAT 95
[2022-08-12 23:39] VITALS: BP 112/63; PULSE 75; RESP 18; TEMP 36.8; O2SAT 93
[2022-08-13] MEDS: Ketorolac 15 MG/ML VIAL IVP ×2 (04:08→21:52)
[2022-08-13 07:51] VITALS: RESP 24; O2SAT 92
--- NOTE | 2022-08-13 08:00 | DI.RAD_ITS ---
Exam(s) XR CHEST 2V PA LATERAL EXAM: XR CHEST 2V PA LATERAL CLINICAL HISTORY: ptx/persistent air leak TECHNIQUE: 2D digital imaging was performed of the chest. Three images were obtained. PA and later al views were obtained. COMPARISON: CR XR PORTABLE CHEST AP from 08/11/2022 FINDINGS: MEDIASTINUM: Normal. HEART: Normal. PULMONARY VASCULATURE: Normal. LUNGS: Atelectasis is seen in the left lung base. There is underlying COPD. PLEURAL SPACE: There is a persistent left pneumothorax which is grossly unchanged to may be mildly sm aller compared to the prior examination. There is again seen a left pigtail catheter in the hemithor ax. No right pneumothorax. No pleural effusion. BONE:Within normal limits for the patient's age. OTHER FINDINGS:There is again seen subcutaneous air along the left chest wall and neck. IMPRESSION: Persistent left pneumothorax which is slightly smaller to unchanged compared to the prior examination . DATA REPOSITORY: RADIATION DOSE DELIVERED:
[2022-08-13 08:03] VITALS: BP 97/60; PULSE 79; RESP 17; TEMP 36.4; O2SAT 93
[2022-08-13] MEDS: Budesonide/Formoterol 80/4.5 6.9 GM 60 PUFF INH IH ×2 (08:13→19:33)
[2022-08-13] MEDS: Tiotropium Bromide-Respimat 10 PUFF INH 2 PUFF IH (08:14)
[2022-08-13] MEDS: Nicotine 21 MG/24 HR PATCH TD (09:01)
--- NOTE | 2022-08-13 09:01 | DI.VRAD_ITS ---
PROCEDURE INFORMATION: Exam: XR Chest Exam date and time: 08/13/2022 8:52 AM Age: 77 years old Clinical indication: Other: Ptx/persistent air leak TECHNIQUE: Imaging protocol: Radiologic exam of the chest. Views: 2 views. COMPARISON: CR XR PORTABLE CHEST AP 08/11/2022 11:18 AM FINDINGS: Tubes, catheters and devices: Left pigtail catheter again identified. Lungs: Hyperinflated lungs. Diffusely increased interstitial markings, unchanged. Pleural spaces: Left pneumothorax persists, slightly decreased from prior study. Costophrenic angles incompletely imaged. Heart/Mediastinum: No cardiomegaly. Bones/joints: Grossly unremarkable. Soft tissues: Extensive gas in the left neck and chest wall. IMPRESSION: Left pneumothorax and additional findings as above. Dictated and Authenticated by: Amberly Gonzales MD. Ordering:ANH Kendall MD
[2022-08-13] MEDS: Docusate Sodium 100 MG CAP PO (09:02)
[2022-08-13] MEDS: buPROPion-CR 150 MG TABCR PO ×2 (09:02→21:06)
[2022-08-13 11:26] VITALS: BP 117/66; PULSE 68; RESP 20; TEMP 36.5; O2SAT 94
[2022-08-13 14:51] VITALS: BP 103/59; PULSE 75; RESP 20; TEMP 36.8; O2SAT 95
[2022-08-13] MEDS: Enoxaparin 40 MG/0.4 ML SYR SC (17:03)
--- NOTE | 2022-08-13 19:00 | W.PM.PROGNOT ---
Date of Service Date of service: 08/13/22 Time of Service: 14:00 Assessment and Plan Assessment and plan (1) Subcutaneous emphysema: Status: Acute (2) Persistent air leak: Status: Acute Assessment and plan: xray unchanged conditioned unchanged IS surgery planned Monday- VATs and pleurodicis Will plan to be in ICU postOp (3) Ruptured emphysematous bleb of lung: Status: Acute (4) Discharge planning issues: Status: Acute (5) Tobacco abuse disorder: Status: Acute (6) COPD (chronic obstructive pulmonary disease): Status: Chronic (7) Pneumothorax: Status: Acute Subjective Subjective Interval history since last seen: Pt is doing well. no headaches. No CP or SOB. chronic productive cough. no dysuria. no leg pain or swelling. Minimal serous drainage. No change in air leak. no change in subcut air amounts. d/w what he could expect during during surgery, how to care for himself at home, and how long he could expect to be in the hospital postOP. Exam Const General: cooperative, healthy appearing and comfortable Orientation: alert, awake and oriented x3 Other: PHYSICAL EXAM GENERAL APPEARANCE: Alert, healthy appearance, oriented, x 3,? in no acute distress HEAD, EYES, EARS, NECK, THROAT: Head is normocephalic, pupils equal, round, reactive to light and accommodation, ocular movement intact, sclera clear and no jaundice. ? LUNGS: normal respiration/normal chest excursion. ?decrease BS Throughout but no wheeze. insertion site bandaged adn intact. ?HEART: Regular rate and rhythm. no murmurs EXTREMITY: No edema or cyanosis.? no leg pain, redness, swelling.? ABDOMEN: soft and non-tender to palpation.? Normal bowel sounds.?? Objective Last Vital Signs Temp 36.8 C 08/13/22 14:51 Pulse 75 08/13/22 14:51 Resp 20 08/13/22 14:51 BP 103/59 L 08/13/22 14:51 Pulse Ox 95 08/13/22 14:51 Time Spent with Patient Time Spent with Patient: 25-34 minutes Time was spent: preparing to see the patient(eg.review tests), obtaining and/or reviewing separately otained hiistory, ordering medications,tests, procedures, referring, communicating with other health transition of care specialist, indepentently interpreting results, counseling the patient and care coordination
[2022-08-13] MEDS: Clotrimazole 1% 15 GM TUBE TP (21:06)
[2022-08-13 23:35] VITALS: BP 94/59; PULSE 79; RESP 20; TEMP 36.5; O2SAT 96
[2022-08-14] VITALS (14 sets, daily range): BP systolic 95–127; BP diastolic 42–67; PULSE 73–92; RESP 18–20; TEMP 36–36.4; O2SAT 91–96
[2022-08-14] MEDS: Ketorolac 15 MG/ML VIAL IVP ×3 (03:54→15:50)
[2022-08-14] MEDS: Normal Saline Flush 10 ML SYR IVP ×3 (03:55→19:37)
[2022-08-14 06:23] LABS: HCT 38.5 % (40.0-50.0); HGB 13.3 g/dL (13.5-17.5); MCHC 34.5 % (32.0-36.0); MCV 93 fL (80-95); MPV 8.6 fL (8.0-11.0); Platelet Count 230 10^3/uL (130-400); RBC 4.15 10^6/uL (4.36-5.78); RDW 12.6 % (11.8-14.1); RDW-SD 42.6 fL; WBC 10.42 10^3/uL (4.4-10.8)
[2022-08-14] MEDS: Budesonide/Formoterol 80/4.5 6.9 GM 60 PUFF INH IH ×2 (08:42→19:15)
[2022-08-14] MEDS: Tiotropium Bromide-Respimat 10 PUFF INH 2 PUFF IH (08:42)
[2022-08-14] MEDS: buPROPion-CR 150 MG TABCR PO ×2 (09:39→19:37)
[2022-08-14] MEDS: Clotrimazole 1% 15 GM TUBE TP ×2 (09:39→19:38)
[2022-08-14] MEDS: Polyethylene Glycol 3350 17 GM PACKET PO (09:40)
[2022-08-14] MEDS: Nicotine 21 MG/24 HR PATCH TD (09:40)
--- NOTE | 2022-08-14 14:08 | W.PM.PROGNOT ---
Date of Service Date of service: 08/14/22 Time of Service: 14:08 Assessment and Plan Assessment and plan (1) Subcutaneous emphysema: Status: Acute (2) Persistent air leak: Status: Acute Assessment and plan: no change (3) Ruptured emphysematous bleb of lung: Status: Acute Assessment and plan: -surgery in am NPO after mignight fluids while NPO ancef oncology physician assistant to OR (4) Discharge planning issues: Status: Acute (5) Tobacco abuse disorder: Status: Acute (6) COPD (chronic obstructive pulmonary disease): Status: Chronic (7) Pneumothorax: Status: Acute Subjective Subjective Interval history since last seen: Patient is currently sleeping. He has been up walking in the hallways this morning. He has a air leak with quiet respiration. No changes per nursing no fevers or cough I d/w surgery w/ the pt yesterday. I did not get surgical consent however. Objective Last Vital Signs Temp 36 C L 08/14/22 07:26 Pulse 73 08/14/22 07:26 Resp 18 08/14/22 11:25 BP 98/42 L 08/14/22 08:47 Pulse Ox 92 08/14/22 11:51 Laboratory Results - last 24 hr 08/14/22 05:58 WBC 10.42 RBC 4.15 L Hgb 13.3 L Hct 38.5 L MCV 93 MCH 32.0 MCHC 34.5 RDW 12.6 Plt Count 230 MPV 8.6 Time Spent with Patient Time Spent with Patient: <25 minutes Time was spent: preparing to see the patient(eg.review tests), obtaining and/or reviewing separately otained hiistory, ordering medications,tests, procedures, referring, communicating with other health care director rn, indepentently interpreting results, counseling the patient and care coordination
[2022-08-14] MEDS: Enoxaparin 40 MG/0.4 ML SYR SC (17:20)
[2022-08-14] MEDS: Lactated Ringers 1,000 ML 80 ML IV (23:53)
[2022-08-15] VITALS (14 sets, daily range): BP systolic 103–128; BP diastolic 53–69; PULSE 79–95; RESP 16–20; TEMP 35.7–36.6; O2SAT 90–99; BMI 19.0
[2022-08-15] MEDS: HYDROmorphone 2 MG/ML VIAL 1 MG IVP (07:35)
[2022-08-15] MEDS: Budesonide/Formoterol 80/4.5 6.9 GM 60 PUFF INH IH ×2 (08:07→19:49)
[2022-08-15] MEDS: Tiotropium Bromide-Respimat 10 PUFF INH 2 PUFF IH (08:07)
[2022-08-15] MEDS: Nicotine 21 MG/24 HR PATCH TD (09:32)
[2022-08-15] MEDS: Clotrimazole 1% 15 GM TUBE TP ×2 (09:35→20:55)
--- NOTE | 2022-08-15 10:53 | PDOC.CMPRO ---
- If Service Date Differs Date of service: 08/15/22 Time of Service: 10:53 Care Management Progress Note S/O: Dmitry was resting when CM attempted to meet with him. He was taken to the OR today for the VATS procedure, which was aborted due to EKG changes and hypotension prior to the procedure. Per report, he will likely require transfer to a tertiary facility for continued management and resolution of the pneumothorax. CM will continue to follow. A: Gregorio is a 77 year old male admitted to [facility] on 08/03/22 with pneumothorax. P: Anticipate Gregorio will return home once medically cleared. His friend will likely drive him home via private vehicle. He will follow up with his PCP and discharge plan of care. CM will continue to follow.
--- NOTE | 2022-08-15 11:59 | ANES.PREOP_ITS ---
General Info Date of Service Date Performed: 08/15/22 Height: 6 ft 7 in Weight: 76.7 kg Body Mass Index (BMI): 19.0 Surgical Procedure: Operation Date: 08/15/22 11:55 Proposed Procedure Side Surgeon p Thoracoscopy Left Savannah Chen MD Meds Allergies and Home Medications Allergies Allergy/AdvReac Type Severity Reaction Status Date / Time No Known Allergies Allergy Unverified 03/29/14 11:30 Home Medication Medication Instructions Recorded albuterol sulfate 90 mcg/actuation 2 puff inhalation Q4H PRN PRN 03/29/14 aerosol inhaler fluticasone fur. 100 mcg-umeclid 1 inh inhalation QDAY 08/03/22 62.5 mcg-vilant 25 mcg inhalat.powder (Trelegy Ellipta) Current Visit Medications: Current Medications Generic Name Dose Route Start Last Admin Trade Name Freq PRN Reason Stop Dose Admin Budesonide/Formoterol Fumarate 2 puff 08/03/22 20:00 08/15/22 08:07 Budesonide/Formoterol 80/4.5 6.9 Gm 60 Puff Inh IH 2 puff BID KYLEE Administration Bupropion HCl 150 mg 08/04/22 08:30 08/15/22 09:24 Bupropion-Cr 150 Mg Tabcr PO Not Given BID KYLEE Clotrimazole 0 gm 08/13/22 20:00 08/15/22 09:35 Clotrimazole 1% 15 Gm Tube TP 1 applic BID KYLEE Administration Device 1 each 08/03/22 19:00 Inhaler, Assist Device MC DIRECTED KYLEE Dimethicone/Zinc Oxide 0 gm 08/03/22 18:47 Sharita Protect Cream 142 Gm Tube TP PRN PRN Enoxaparin Sodium 40 mg 08/05/22 16:00 08/14/22 17:20 Enoxaparin 40 Mg/0.4 Ml Syr SC 40 mg Q24H KYLEE Administration Hydromorphone HCl 1 mg 08/12/22 07:20 08/15/22 07:35 Hydromorphone 2 Mg/Ml Vial IVP 1 mg Q3H PRN PRN Administration Pain Sodium Chloride 500 mls @ 0 mls/hr 08/05/22 10:44 Saline 500ml Bag IV PRN PRN As Directed Ringer's Solution 1,000 mls @ 80 mls/hr 08/15/22 00:00 08/14/22 23:53 IV 80 mls/hr INFUSION KYLEE Administration Cefazolin Sodium/Dextrose 2 gm in 50 mls @ 100 mls/hr 08/15/22 06:00 Ancef Duplex IVPB 08/15/22 16:00 PREOP KYLEE IV Miscellaneous Supplies 1 each 08/05/22 10:45 Iv Access IV DIRECTED KYLEE Levalbuterol HCl 1.25 mg 08/04/22 19:15 08/06/22 05:29 Levalbuterol 1.25 Mg/3 Ml Upd Vial UPD 1.25 mg Q2H PRN PRN Administration Nicotine 21 mg 08/05/22 08:30 08/15/22 09:32 Nicotine 21 Mg/24 Hr Patch TD 21 mg DAILY KYLEE Administration Polyethylene Glycol 17 gm 08/13/22 15:05 08/15/22 09:24 Polyethylene Glycol 3350 17 Gm Packet PO Not Given DAILY KYLEE Sodium Chloride 0 ml 08/05/22 10:44 08/14/22 19:37 Normal Saline Flush 10 Ml Syr IVP 10 ml PRN PRN Administration Tiotropium [place] 2 puff 08/05/22 08:30 08/15/22 08:07 Tiotropium [place]-Respimat 10 Puff Inh IH 2 inh DAILY KYLEE Administration Tramadol HCl 50 mg 08/06/22 20:53 Tramadol 50 Mg Tab PO Q6H PRN PRN Pain PFSH Active Problems Active Problems: Problem Status Onset Code Subcutaneous emphysema T79.7XXA Persistent air leak 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 Discharge planning issues Z02.9 Tobacco abuse disorder Z72.0 COPD (chronic obstructive pulmonary disease) J44.9 Pneumothorax J93.9 Tobacco Smoking/Tobacco Use Status: Current every day Tobacco Type: cigarettes Smoking cigarettes per day: 20 Alcohol Alcohol Intake: former Substance Use Substance use: Never Substance use type: does not use Vital Signs and Lab Results Vital Signs Most Recent Vital Signs in EMR: Most Recent Vital Signs Temp Pulse Resp BP Pulse Ox 36.5 C 93 H 16 106/65 92 08/15/22 07:27 08/15/22 07:27 08/15/22 10:36 08/15/22 07:27 08/15/22 07:27 Lab Results 08/14/22 05:58 08/04/22 05:32 Blood Type / Crossmatch: No Data to Display Complete Blood Count: White Blood Count 10.42 10^3/uL (4.4-10.8) 08/14/22 05:58 Red Blood Count 4.15 10^6/uL (4.36-5.78) L 08/14/22 05:58 Hemoglobin 13.3 g/dL (13.5-17.5) L 08/14/22 05:58 Hematocrit 38.5 % (40.0-50.0) L 08/14/22 05:58 Platelet Count 230 10^3/uL (130-400) 08/14/22 05:58 Complete Metabolic Panel: Sodium 137 mmol/L (136-145) 08/04/22 05:32 Potassium 4.2 mmol/L (3.5-5.1) 08/04/22 05:32 Chloride 103 mmol/L (98-107) 08/04/22 05:32 Carbon Dioxide 25.6 mmol/L (21.0-32.0) 08/04/22 05:32 BUN 23 mg/dL (7-18) H 08/04/22 05:32 Creatinine 1.0 mg/dL (0.70-1.30) 08/04/22 05:32 Est GFR (CKD-EPI 2020) 77.52 (mL/min/1.73m2) 08/04/22 05:32 Magnesium 1.9 mg/dL (1.8-2.4) 08/03/22 16:40 Calcium 8.9 mg/dL (8.5-10.1) 08/04/22 05:32 Albumin 3.2 g/dL (3.4-5.0) L 08/04/22 05:32 Glucose 155 mg/dL (74-106) H 08/04/22 05:32 Liver Function Panel: Alanine Aminotransferase (ALT/SGPT) 22 U/L (16-63) 08/04/22 05: 32 Aspartate Amino Transf (AST/SGOT) 22 U/L (15-37) 08/04/22 05:32 Coagulation Panel: No Data to Display Cardiac Panel: Troponin I < 50 ng/L (<or=60) 08/03/22 Arterial Blood Gas: No Data to Display Venous Blood Gas: Venous Blood pH 7.28 (7.31-7.41) L 08/03/22 16:40 Venous Blood Partial Pressure O2 41 mmHg 08/03/22 16:40 Venous Blood Partial Pressure CO2 54 mmHg (41-51) H 08/03/22 16 :40 Venous Blood Oxygen Saturation 73 % 08/03/22 16:40 Venous Blood HCO3 25 mmol/L (23-28) 08/03/22 16:40 Venous Blood Base Excess -1 mmol/L (-2-3) 08/03/22 16:40 Venous Blood Total Carbon Dioxide 23 mmol/L (24-29) L 08/03/22 16:40 Pancreas Panel: No Data to Display Thyroid Panel: No Data to Display Infectious Disease: Coronavirus (COVID-19)(PCR) Negative (Negative) 08/03/22 20:11 Coronavirus 2019 Source Nasal/Nares 08/03/22 20:11 Blood Cultures: No Data to Display Toxicology Panel: No Data to Display Imaging and Studies Imaging and Studies Study information below may be from another EMR and interpreted by another provider. Please see original notes in EMR for more complete details. EKG Summary: PATIENT NAME: Gregorio Galeana #: [id number] ORDERING PROVIDER: Alex Patterson M.D. PRIMARY CARE PROVIDER:KATIE CRISTINA DATE/TIME OF SERVICE: 08/03/221619 : 1945PERFORMING LOCATION: ICU APPROVED REPORT Exam: Resting ECG Reason for Exam: SOB Patient Location: E HR:129 bpm ECG Measurements Heart Rate 129 AXIS PA 130 P 69 QRSd 88 QRS 92 QT 331 T47 QTc 486 Conclusion Sinus tachycardia...rate> 99 Right axis deviation...QRS axis ( [id number]) <Electronically signed by ALEX PATTERSON MD in OV> E-Sign Date: 08/03/22 E-Sign Time: 1750 ADDENDUM APPROVED REPORT Exam: Resting ECG Reason for Exam: SOB Patient Location: E HR:129 bpm ECG Measurements Heart Rate 129 AXIS PA 130 P 69 QRSd 88 QRS 92 QT 331 T47 QTc 486 Conclusion Sinus tachycardia...rate> 99 Right axis deviation...QRS axis ( 91,269) I have reviewed and I agree with the emergency room physician's ECG interpretation. Electronically signed by: <Electronically signed by Amanda Garcia M.D. in OV> 08/04/22 0837 Cosigned by: Echocardiogram Summary: Patient Name: Gregorio Galeana #: [id number]: MS Ordering Provider: Savannah Chen M.D. : ADM IN Primary Care Provider: Porter Cristina of Exam: 08/09/22Sex: M Admission Date: 08/03/22 : 1945 Age: 77 APPROVED REPORT EXAM: Comprehensive 2D, Doppler, and color-flow Echocardiogram Patient Location: In-Patient Room/Bed: 210 Clinical Laboratory Aide: Natty Fernandez RDCS (AE) Indications: PTX, may need VATS, SOB, Smoker, COPD Other Information Study Quality: Technically Limited. Technically limited study due to body habitus, inability to position patient, post operative dressings. Conclusion Limited study Left ventricular chamber size wall thickness and systolic function appear within the range of normal Right ventricular function appears normal Both atria appear normal in size Study is not adequate to confirm or exclude any significant valvular disease Wall motion Left Ventricle Very limited imaging. Patient has a bandaged chest. The overall left ventricular systolic function appears normal. There is no ventricular septal defect visualiz ed. Atria The interatrial septum is intact with no evidence for an atrial septal defect. Great Vessels IVC is normal in size and collapses >50% with inspiration. Pericardium There is no pericardial effusion. Ordered By: Savannah Chen M.D. CC: Dictated By: Amanda Garcia M.D. 08/09/22 1153 <Electronically signed by Amanda Garcia M.D. in OV> 08/09/22 1200 Transcribed By: Amanda Garcia MD This is privileged, confidential information intended only for the provider named. Any use or distribution by any person other than this provider is strictly prohibited. If you receive this report in error, please notify us immediately at [phone] and return the original report to us at the address above. Thank-you. Anesthesia Assessment and Plan Anesthesia History Personal History: No History of Anesthesia Complications Family History: No Family History of Anesthesia Complications Exercise Tolerance Exercise Tolerance: Metabolic Equivalents>4 Pertinent Negatives Pertinent Negatives: No Symptoms of GERD, No Major Cardiovascular Symptoms or Complaints and Other (hx of stroke greater than 10 yrs ago, speech deficits have resolved) Cardiac & Pulmonary Exam Cardiac Exam: Normal S1/S2 Heart Sounds Pulmonary Exam: Wheezing Present (diminished right) and Other (Patient with diminished left lung sounds) Cardiac and Pulmonary Comment:: Known left pneumothorax. To OR for thoracoscopy Implantable Cardiac Device Does patient have a Pacemaker or an ICD?: No Airway Exam Known Difficult Airway: No Mallampati Class: 3 Mouth Opening: Normal (> 3cm) Thyromental Distance: Greater than 3 cm Facial Hair: Full Garcia Neck Range of Motion: Full ROM Neck Circumference: Normal Teeth Condition: Generalized Poor Dentition (3 broken teeth upper right, no other teeth present) ASA Classification ASA Score: ASA 3 Emergency Case?: No NPO Status NPO Status: NPO Clears >2 hours, Solids >8 hours Anesthesia Plan Resuscitation Status: Full Code Anesthesia Technique: General Anesthesia Airway Planned: Double Lumen Endotracheal Tube Monitors Used: Standard Monitors
--- NOTE | 2022-08-15 12:23 | W.PM.PROGNOT ---
Date of Service Date of service: 08/15/22 Time of Service: 12:23 Assessment and Plan Assessment and plan (1) Subcutaneous emphysema: Status: Acute (2) Persistent air leak: Status: Acute Assessment and plan: no change (3) Ruptured emphysematous bleb of lung: Status: Acute Assessment and plan: Discussed surgery with Gregorio. We reviewed the procedure and the risks, benefits and complications. Complications include but are not limited to bleeding, infection, pain, injury to vasculature and lungs. Adverse reaction to the anesthetic, RI, Stroke, . Questions were entertained and answered to his satisfaction and he wished to proceed. He had a good understanding of the risks. Proceed with Left VATS and mechanical pleuredesis. (4) Discharge planning issues: Status: Acute (5) Tobacco abuse disorder: Status: Acute (6) COPD (chronic obstructive pulmonary disease): Status: Chronic (7) Pneumothorax: Status: Acute Subjective Subjective Interval history since last seen: Mr. Galeana is doing well. He is hungry. Still continues to have an air leak Exam Resp Effort & Inspection: normal respiratory effort Cardio Rate: regular rate Rhythm: regular rhythm Objective Last Vital Signs Temp 97.7 F 08/15/22 07:27 Pulse 93 H 08/15/22 07:27 Resp 16 08/15/22 10:36 BP 106/65 08/15/22 07:27 Pulse Ox 92 08/15/22 07:27 Time Spent with Patient Time Spent with Patient: <25 minutes Time was spent: preparing to see the patient(eg.review tests), indepentently interpreting results and counseling the patient
[2022-08-15] MEDS: Bupivacaine 0.5% Pres-Free W/EPI 30 ML VIAL (12:30)
[2022-08-15] MEDS: Bupivacaine LIPOSOME/PF 133 MG/10 ML VIAL IJ (12:31)
[2022-08-15] MEDS: ceFAZolin 2 GM/50 ML BAG IVPB (12:59)
--- NOTE | 2022-08-15 13:15 | RT.EKG_ITS ---
APPROVED REPORT Exam: Resting ECG Reason for Exam: Intraoperative EKG changes Patient Location: I HR:87 bpm ECG Measurements Heart Rate [address] 149 P 79 QRSd 95 QRS 82 QT 382 T 76 QTc 458 Conclusion Sinus rhythm...normal P axis, V-rate 60- 99 Normal Electrocardiogram
[2022-08-15] MEDS: Albuterol/Ipratropium 3 ML UPD VIAL UPD (13:50)
--- NOTE | 2022-08-15 14:03 | W.PM.OP ---
Date of service: 08/15/22 Time of Service: 14:03 Operative Note Operative Note DATE OF PROCEDURE: 08/06/22 PRE-OP DIAGNOSIS: Left pneumothorax POST-OP DIAGNOSIS: same PROCEDURE: Aborted video assisted thorascopic surgery SURGEON: Leland Rasmussen ASSISTING SURGEON: Savannah Chen ANESTHESIA TYPE: General LMA/ETT Refer to Anesthesia Record PATHOLOGY: none sent Patient was transported to: PACU Patient's condition: critical Procedure Description: Gregorio is a 77 year old male with a Left sided pneumothorax and persistent airleak. We discussed the role of VATS with planned pleuradesis. After moving to the operating room, he underwent dual lumen intubation of the left bronchus without difficulty. During bronchoscopy to assess appropriate tube placement, he develped elevation and widening of the ST segments in lead 2. The was associated with hypotension. He was treated with nor-epinephrine with improvement in some of the ST changes, but not resolution. With new EKG changes we decided to abort the planned procedure based on the complex nature are relatively elective nature of the procedure. Labs were obtained prior to extubation. After uneventful extubation, the EKG strip improved. He was moved to PACU and formal EKG was obtained that showed return to normal sinus rythm with ST segments similar to his pre-operative EKG.
[2022-08-15 14:21] LABS: ALT 31 U/L (16-63); AST 17 U/L (15-37); Albumin 2.6 g/dL (3.4-5.0); Alkaline Phosphatase 56 U/L (46-116); Anion Gap 2.8 mmol/L (3-11); BUN 23 mg/dL (7-18); Bilirubin, Total 0.2 mg/dL (0.2-1.0); CO2 30.2 mmol/L (21.0-32.0); CREATININE 1.2 mg/dL (0.70-1.30); Calcium 8.8 mg/dL (8.5-10.1); Chloride 107 mmol/L (98-107); Estimated GFR 62.29 (mL/min/1.73m2); Glucose 115 mg/dL (74-106); Potassium 4.4 mmol/L (3.5-5.1); Sodium 140 mmol/L (136-145); Total Protein 5.9 g/dL (6.4-8.2); Troponin I < 50 ng/L (<or=60)
--- NOTE | 2022-08-15 15:17 | W.ANESPOSTOP ---
Postoperative Evaluation Date, Time and Location Date Performed: 08/15/22 Time Performed: 14:40 Patient Location: PACU Vital Signs Most Recent Imported Vital Signs: Most Recent Vital Signs Temp Pulse Resp BP Pulse Ox 35.7 C L 89 18 124/69 90 L 08/15/22 14:40 08/15/22 14:34 08/15/22 14:40 08/15/22 14:40 08/15/22 14:40 Pain Score Most Recent Pain Score: Most Recent Pain Score Pain Level [Left Chest] 1 08/15/22 10:13 Pain Level 0 08/15/22 14:30 Assessment Mental Status: Awake (Alert & Oriented to Patient Baseline) Airway and Respiratory Function: Patent airway with normal (patient baseline) respiratory exam Cardiovascular Function: Hemodynamically Stable Hydration Status: Adequately Hydrated Nausea & Vomiting: No Nausea or Vomiting Pain: Pt. Denies Any Pain Peripheral Nerve Block: Patient did not receive a nerve block Postoperative Comments:: Troponins negative, patient denies any chest discomfort. To be followed by medicine.
[2022-08-15] MEDS: Enoxaparin 40 MG/0.4 ML SYR SC (16:37)
[2022-08-15] MEDS: Normal Saline Flush 10 ML SYR IVP (16:38)
--- NOTE | 2022-08-15 17:40 | MCONE_ITS ---
Date of service: 08/15/22 Time of Service: 17:41 Assessment and Plan Assessment and plan (1) Pneumothorax: Status: Acute Assessment and plan: continue low wall suction; I would advise to not perform chemical pleurodesis as the yield is <50%, and if unsuccessful will make VATS nearly impossible due to loculated adhesions from areas where pleurodesis does occur, thus necessitating open thoracotomy. I would suggest making further inquiries w/ CT surgery [facility], i.e. [facility], [place], [place], [facility], [place], [place]; [place], [place]. to see if one of them would accpet the patient. (2) Ruptured emphysematous bleb of lung: Status: Acute (3) Persistent air leak: Status: Acute (4) Perioperative hypertension: Status: Acute Assessment and plan: I think his hypotension was combo of the induction agents (propofol) and the intrathoracic pressure changes associated w/ intubation w/ double lumen ET in setting of pneumothorax. I understand that the C.T. was not on suction at the time of intubation and this may have allowed enough transpleural pressure to accumulate to cause decreased RV filling. He apparently did not have an ACS event. No further intervention needed at this time. (5) COPD (chronic obstructive pulmonary disease): Status: Chronic (6) Tobacco abuse disorder: Status: Acute History of Present Illness History of Present Illness Chief Complaint: medical consult, persistent PTX, intraop. hypotension Narrative: 77 yr old male w/ hx of COPD, continues to smoke about 1 ppd who has prior pneumothorax in his right lung. he presented to [facility] on 08/03/22 w/ left sided pneumothorax. he had pigtail pleural catheter placed in the ED however he has had persistent air leak requiring continuous suction. He was to have VATS procedure today after inability to transfer to regional tertiary care centers. During induction at intubation he developed hypotensionn after intubation w/ double lumen ET. Patient required phenylephrine 240 mcg x two doses and norepinephrine drip. Patient had ST elevation on monitoring. Procedure was aborted and patient given reversal sugammmadex. Stat EKG was done and troponin I levels have been checked. Troponin I has been normal x 2 and EKG did not show acute ischemia and he denies any chest pain or pressure post procedure. he has no known CAD although he has hx of CVA. PFSH All Active Problems (Updated 08/15/22 @ 23:39 by Priyank Martin MD) Perioperative hypertension (Acute) Subcutaneous emphysema (Acute) Persistent air leak (Acute) Ruptured emphysematous bleb of lung (Acute) Discharge planning issues (Acute) Tobacco abuse disorder (Acute) COPD (chronic obstructive pulmonary disease) (Chronic) Pneumothorax (Acute) Social History Smoking/Tobacco Use Status: Current every day Tobacco Type: cigarettes Smoking risk assessment performed?: Yes Alcohol Intake: former Drug use: Never Substance use type: does not use Do you feel safe at home: Yes Do you feel safe in your relationship?: Yes Exam Narrative Exam Narrative: Thin elderly bearded white male sitting up eating his dinner. he is alert and oriented x 3, NAD Neck: no JVD, normal ROM, normal carotid pulses Lungs: left base w/ some coarse sounds; upper steiner clear although prolonged expiratory phase; chest w/left sided catheter attached to suction Heart: RRR w/o m,r,g Abdomen: soft, nontender Extremities: no c/c/e, normal ROM, strength Results Last Vital Signs Temp 36.6 C 08/15/22 15:23 Pulse 79 08/15/22 15:23 Resp 17 08/15/22 15:23 BP 103/60 08/15/22 15:23 Pulse Ox 91 L 08/15/22 15:23 Labs 08/14/22 05:58 08/15/22 13:28 Labs: Laboratory Results - last 24 hr 08/15/22 08/15/22 13:28 13:28 Sodium 140 Cancelled Potassium 4.4 Cancelled Chloride 107 Cancelled Carbon Dioxide 30.2 Cancelled Anion Gap 2.8 L Cancelled BUN 23 H Cancelled Creatinine 1.2 Cancelled Est GFR (CKD-EPI 2020) 62.29 Cancelled Glucose 115 H Cancelled Calcium 8.8 Cancelled Total Bilirubin 0.2 Cancelled AST 17 Cancelled ALT 31 Cancelled Alkaline Phosphatase 56 Cancelled Troponin I < 50 Total Protein 5.9 L Cancelled Albumin 2.6 L Cancelled
[2022-08-15 19:38] LABS: Troponin I < 50 ng/L (<or=60)
[2022-08-15] MEDS: traMADol 50 MG TAB PO (20:48)
[2022-08-15] MEDS: buPROPion-CR 150 MG TABCR PO (20:48)
[2022-08-15] MEDS: Docusate Sodium 100 MG CAP PO (20:48)
[2022-08-16] VITALS (17 sets, daily range): BP systolic 98–118; BP diastolic 54–66; PULSE 75–90; RESP 16–21; TEMP 36.1–37; O2SAT 88–97
--- NOTE | 2022-08-16 07:08 | W.PULMPROG ---
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 He has been unable to come off wall suction at all. His attempted VATS yesterday was unable to proceed due to hypotension that was likely related to induction agents. Unfortunately, [facility] and [facility] are not currently accepting patients and the patient has been here since 08/03. I was asked to consider chemical pleurodesis. It is no secret that chemical pleurodesis is not as successful as mechanical pleurodesis, however we are a bit stuck. I have discussed with the surgical team as well as the patient that the odds this will work is around 50%. He understood risks, benefits and chance of success and consented to move forward. He did require an increase in his O2 to 4LPM during the procedure. If this is not successful, trying to transfer the patient to a tertiary facility, maybe further away may be appropriate. Alternatively, if we are able to at least liberate him from wall suction, he could be discharged with a tunneled chest tube with an [facility] and seen on an outpatient basis by thoracics at [facility]. Spontaneous Pneumothorax - appropriate function of current pigtail - continue -[id number] suction - doxycycline chemical pleurodesis performed - he will remain clamped until 10am - patient to roll himself every few minutes from one side to the other - every 15 min nursing will lay patient flat and have him roll from one side to the other - recommend he remain on 2LPM O2 to help with PNX resorption COPD - on Trelegy at home - substitution Symbicort and Spiriva is appropriate - prn nebs - will schedule to see as an outpatient for continued management General Date Of Service Date of service: 08/16/22 Time of Service: 07:08 Reason for Consult: Pneumothorax with continued air leak Subjective 24 Hour Events: He has had a continued air leak. [facility] and [facility] are not accepting transfers currently. He was attempted for VATS yesterday, however he became hypotensive and the procedure was aborted. I was requested to see the patient and attempt a chemical pleurodesis given an unsuccessful VATS attempts and non resolving PNX. Note Note: He is feeling fine today. We discussed the procedure of a chemical pleurodesis, and the likelihood of success not being great. He acknowledged that we are a bit stuck at the moment, with other local tertiary centers with no bed availability. He has agreed to move forward with this procedure today. Exam Narrative Exam Narrative: Gen:?NAD, normal respiratory effort, well-nourished HENT:?PERRL Chest:?No respiratory distress, normal appearance of chest, clear breath sounds. Chest tube interrogated and functioning appropriately. Significant air leak with expiration Heart:?regular rate and rhythym, no murmurs, rubs or gallops Abdomen:?Non-distended, soft, non tender Extremities:?No clubbing, There is subcutaneous air present on left chest that has improved Neuro:?AAOx3 , non focal Psych:?cooperative, appropriate mental affect Objective Last Vital Signs Temp 36.1 C L 08/16/22 03:19 Pulse 75 08/16/22 03:19 Resp 18 08/16/22 03:19 BP 108/56 L 08/16/22 03:19 Pulse Ox 97 08/16/22 03:19 Laboratory Results - last 24 hr 08/15/22 08/15/22 08/15/22 13:28 13:28 19:01 Sodium 140 Cancelled Potassium 4.4 Cancelled Chloride 107 Cancelled Carbon Dioxide 30.2 Cancelled Anion Gap 2.8 L Cancelled BUN 23 H Cancelled Creatinine 1.2 Cancelled Est GFR (CKD-EPI 2020) 62.29 Cancelled Glucose 115 H Cancelled Calcium 8.8 Cancelled Total Bilirubin 0.2 Cancelled AST 17 Cancelled ALT 31 Cancelled Alkaline Phosphatase 56 Cancelled Troponin I < 50 < 50 Total Protein 5.9 L Cancelled Albumin 2.6 L Cancelled Results Medications Medications: Active Medications Generic Name Dose Route Start Last Admin Trade Name Freq PRN Reason Stop Dose Admin Budesonide/Formoterol Fumarate 2 puff 08/03/22 20:00 08/15/22 19:49 Budesonide/Formoterol 80/4.5 6.9 Gm 60 Puff Inh IH 2 puff BID KYLEE Administration Bupropion HCl 150 mg 08/04/22 08:30 08/15/22 20:48 Bupropion-Cr 150 Mg Tabcr PO 150 mg BID KYLEE Administration Clotrimazole 0 gm 08/13/22 20:00 08/15/22 20:55 Clotrimazole 1% 15 Gm Tube TP 1 applic BID KYLEE Administration Doxycycline Hyclate 500 mg/ 0 mg 08/16/22 08:00 Sodium Chloride 50 ml IJ 08/16/22 14:00 TODAY [facility] Device 1 each 08/03/22 19:00 Inhaler, Assist Device DIRECTED [facility] Dimethicone/Zinc Oxide 0 gm 08/03/22 18:47 Sharita Protect Cream 142 Gm Tube TP PRN PRN Docusate Sodium 100 mg 08/15/22 20:00 08/15/22 20:48 Docusate Sodium 100 Mg Cap PO 100 mg BID KYLEE Administration Enoxaparin Sodium 40 mg 08/05/22 16:00 08/15/22 16:37 Enoxaparin 40 Mg/0.4 Ml Syr SC 40 mg Q24H KYLEE Administration Hydromorphone HCl 1 mg 08/12/22 07:20 08/15/22 07:35 Hydromorphone 2 Mg/Ml Vial IVP 1 mg Q3H PRN PRN Administration Pain Sodium Chloride 500 mls @ 0 mls/hr 08/05/22 10:44 Saline 500ml Bag IV PRN PRN As Directed IV Miscellaneous Supplies 1 each 08/05/22 10:45 Iv Access IV DIRECTED [facility] Levalbuterol HCl 1.25 mg 08/04/22 19:15 08/06/22 05:29 Levalbuterol 1.25 Mg/3 Ml Upd Vial UPD 1.25 mg Q2H PRN PRN Administration Lidocaine HCl 10 ml 08/16/22 08:00 Lidocaine 1% Multi-Dose 10 Ml Vial IJ 08/16/22 14:00 TODAY [facility] Nicotine 21 mg 08/05/22 08:30 08/15/22 09:32 Nicotine 21 Mg/24 Hr Patch TD 21 mg DAILY KYLEE Administration Polyethylene Glycol 17 gm 08/13/22 15:05 08/15/22 09:24 Polyethylene Glycol 3350 17 Gm Packet PO Not Given DAILY KYLEE Sodium Chloride 0 ml 08/05/22 10:44 08/15/22 16:38 Normal Saline Flush 10 Ml Syr IVP 10 ml PRN PRN Administration Tiotropium [place] 2 puff 08/05/22 08:30 08/15/22 08:07 Tiotropium [place]-Respimat 10 Puff Inh IH 2 inh DAILY KYLEE Administration Tramadol HCl 50 mg 08/06/22 20:53 08/15/22 20:48 Tramadol 50 Mg Tab PO 50 mg Q6H PRN PRN Administration Pain Allergies No Known Allergies Allergy (Unverified 03/29/14 11:30) Labs 08/14/22 05:58 08/15/22 13:28 Labs: Laboratory Tests Range/Units 08/03/22 08/03/22 08/03/22 16:40 16:40 16:40 WBC (4.4-10.8) 10^3/uL 13.51 H RBC (4.36-5.78) 10^6/uL 4.79 Hgb (13.5-17.5) g/dL 15.3 Hct (40.0-50.0) % 43.7 MCV (80-95) fL 91 MCH (27.0-33.0) pg 31.9 MCHC (32.0-36.0) % 35.0 RDW (11.8-14.1) % 12.3 Plt Count (130-400) 10^3/uL 272 MPV (8.0-11.0) fL 8.8 Immature Gran % 0.3 Neutrophils % 91.6 Lymphocytes % 3.8 Monocytes % 4.0 Eosinophils % 0.1 Basophils % 0.2 Nucleated RBC % (0.0-0.3) % 0.0 Absolute Neutrophils (1.2-6.7) 10^3/uL 12.38 H Absolute Lymphocytes (1.2-3.4) 10^3/uL 0.51 L Absolute Monocytes (0.1-0.8) 10^3/uL 0.54 Absolute Eosinophils (0.0-0.7) 10^3/uL 0.01 Absolute Basophils (0.0-0.2) 10^3/uL 0.03 VBG pH (7.31-7.41) 7.28 L VBG pCO2 (41-51) mmHg 54 H VBG pO2 mmHg 41 VBG HCO3 (23-28) mmol/L 25 VBG Total CO2 (24-29) mmol/L 23 L VBG O2 Saturation % 73 VBG Base Excess (-2-3) mmol/L -1 Sodium (136-145) mmol/L 138 Potassium (3.5-5.1) mmol/L 4.3 Chloride (98-107) mmol/L 100 Carbon Dioxide (21.0-32.0) mmol/L 26.8 Anion Gap (3-11) mmol/L 11.2 H BUN (7-18) mg/dL 23 H Creatinine (0.70-1.30) mg/dL 1.3 Est GFR (CKD-EPI 2020) (mL/min/1.73m2) 56.58 Glucose (74-106) mg/dL 169 H Calcium (8.5-10.1) mg/dL 9.4 Magnesium (1.8-2.4) mg/dL 1.9 Total Bilirubin (0.2-1.0) mg/dL 0.7 AST (15-37) U/L 16 ALT (16-63) U/L 22 Alkaline Phosphatase (46-116) U/L 73 Troponin I (<or=60) ng/L < 50 Total Protein (6.4-8.2) g/dL 7.9 Albumin (3.4-5.0) g/dL 4.0 COVID-19 Source SARS-CoV-2 (PCR) (Negative) Range/Units 08/03/22 08/04/22 08/04/22 20:11 05:32 05:32 WBC (4.4-10.8) 10^3/uL 7.83 RBC (4.36-5.78) 10^6/uL 4.17 L Hgb (13.5-17.5) g/dL 13.4 L Hct (40.0-50.0) % 38.8 L MCV (80-95) fL 93 MCH (27.0-33.0) pg 32.1 MCHC (32.0-36.0) % 34.5 RDW (11.8-14.1) % 12.5 Plt Count (130-400) 10^3/uL 182 MPV (8.0-11.0) fL 10.0 Immature Gran % 0.3 Neutrophils % 87.0 Lymphocytes % 5.7 Monocytes % 6.9 Eosinophils % 0.0 Basophils % 0.1 Nucleated RBC % (0.0-0.3) % 0.0 Absolute Neutrophils (1.2-6.7) 10^3/uL 6.81 H Absolute Lymphocytes (1.2-3.4) 10^3/uL 0.45 L Absolute Monocytes (0.1-0.8) 10^3/uL 0.54 Absolute Eosinophils (0.0-0.7) 10^3/uL 0.00 Absolute Basophils (0.0-0.2) 10^3/uL 0.01 VBG pH (7.31-7.41) VBG pCO2 (41-51) mmHg VBG pO2 mmHg VBG HCO3 (23-28) mmol/L VBG Total CO2 (24-29) mmol/L VBG O2 Saturation % VBG Base Excess (-2-3) mmol/L Sodium (136-145) mmol/L 137 Potassium (3.5-5.1) mmol/L 4.2 Chloride (98-107) mmol/L 103 Carbon Dioxide (21.0-32.0) mmol/L 25.6 Anion Gap (3-11) mmol/L 8.4 BUN (7-18) mg/dL 23 H Creatinine (0.70-1.30) mg/dL 1.0 Est GFR (CKD-EPI 2020) (mL/min/1.73m2) 77.52 Glucose (74-106) mg/dL 155 H Calcium (8.5-10.1) mg/dL 8.9 Magnesium (1.8-2.4) mg/dL Total Bilirubin (0.2-1.0) mg/dL 0.4 AST (15-37) U/L 22 ALT (16-63) U/L 22 Alkaline Phosphatase (46-116) U/L 58 Troponin I (<or=60) ng/L Total Protein (6.4-8.2) g/dL 6.6 Albumin (3.4-5.0) g/dL 3.2 L COVID-19 Source Nasal/Nares SARS-CoV-2 (PCR) (Negative) Negative Range/Units 08/04/22 08/08/22 08/11/22 05:35 11:53 06:30 WBC (4.4-10.8) 10^3/uL 8.31 9.15 RBC (4.36-5.78) 10^6/uL 4.21 L 4.26 L Hgb (13.5-17.5) g/dL 13.5 13.6 Hct (40.0-50.0) % 39.0 L 39.9 L MCV (80-95) fL 93 94 MCH (27.0-33.0) pg 32.1 31.9 MCHC (32.0-36.0) % 34.6 34.1 RDW (11.8-14.1) % 12.8 12.6 Plt Count (130-400) 10^3/uL 222 238 MPV (8.0-11.0) fL 8.9 8.5 Immature Gran % Neutrophils % Lymphocytes % Monocytes % Eosinophils % Basophils % Nucleated RBC % (0.0-0.3) % Absolute Neutrophils (1.2-6.7) 10^3/uL Absolute Lymphocytes (1.2-3.4) 10^3/uL Absolute Monocytes (0.1-0.8) 10^3/uL Absolute Eosinophils (0.0-0.7) 10^3/uL Absolute Basophils (0.0-0.2) 10^3/uL VBG pH (7.31-7.41) VBG pCO2 (41-51) mmHg VBG pO2 mmHg VBG HCO3 (23-28) mmol/L VBG Total CO2 (24-29) mmol/L VBG O2 Saturation % VBG Base Excess (-2-3) mmol/L Sodium (136-145) mmol/L Cancelled Potassium (3.5-5.1) mmol/L Cancelled Chloride (98-107) mmol/L Cancelled Carbon Dioxide (21.0-32.0) mmol/L Cancelled Anion Gap (3-11) mmol/L Cancelled BUN (7-18) mg/dL Cancelled Creatinine (0.70-1.30) mg/dL Cancelled Est GFR (CKD-EPI 2020) (mL/min/1.73m2) Cancelled Glucose (74-106) mg/dL Cancelled Calcium (8.5-10.1) mg/dL Cancelled Magnesium (1.8-2.4) mg/dL Total Bilirubin (0.2-1.0) mg/dL AST (15-37) U/L ALT (16-63) U/L Alkaline Phosphatase (46-116) U/L Troponin I (<or=60) ng/L Total Protein (6.4-8.2) g/dL Albumin (3.4-5.0) g/dL COVID-19 Source SARS-CoV-2 (PCR) (Negative) Range/Units 08/14/22 08/15/22 08/15/22 05:58 13:28 13:28 WBC (4.4-10.8) 10^3/uL 10.42 RBC (4.36-5.78) 10^6/uL 4.15 L Hgb (13.5-17.5) g/dL 13.3 L Hct (40.0-50.0) % 38.5 L MCV (80-95) fL 93 MCH (27.0-33.0) pg 32.0 MCHC (32.0-36.0) % 34.5 RDW (11.8-14.1) % 12.6 Plt Count (130-400) 10^3/uL 230 MPV (8.0-11.0) fL 8.6 Immature Gran % Neutrophils % Lymphocytes % Monocytes % Eosinophils % Basophils % Nucleated RBC % (0.0-0.3) % Absolute Neutrophils (1.2-6.7) 10^3/uL Absolute Lymphocytes (1.2-3.4) 10^3/uL Absolute Monocytes (0.1-0.8) 10^3/uL Absolute Eosinophils (0.0-0.7) 10^3/uL Absolute Basophils (0.0-0.2) 10^3/uL VBG pH (7.31-7.41) VBG pCO2 (41-51) mmHg VBG pO2 mmHg VBG HCO3 (23-28) mmol/L VBG Total CO2 (24-29) mmol/L VBG O2 Saturation % VBG Base Excess (-2-3) mmol/L Sodium (136-145) mmol/L 140 Cancelled Potassium (3.5-5.1) mmol/L 4.4 Cancelled Chloride (98-107) mmol/L 107 Cancelled Carbon Dioxide (21.0-32.0) mmol/L 30.2 Cancelled Anion Gap (3-11) mmol/L 2.8 L Cancelled BUN (7-18) mg/dL 23 H Cancelled Creatinine (0.70-1.30) mg/dL 1.2 Cancelled Est GFR (CKD-EPI 2020) (mL/min/1.73m2) 62.29 Cancelled Glucose (74-106) mg/dL 115 H Cancelled Calcium (8.5-10.1) mg/dL 8.8 Cancelled Magnesium (1.8-2.4) mg/dL Total Bilirubin (0.2-1.0) mg/dL 0.2 Cancelled AST (15-37) U/L 17 Cancelled ALT (16-63) U/L 31 Cancelled Alkaline Phosphatase (46-116) U/L 56 Cancelled Troponin I (<or=60) ng/L < 50 Total Protein (6.4-8.2) g/dL 5.9 L Cancelled Albumin (3.4-5.0) g/dL 2.6 L Cancelled COVID-19 Source SARS-CoV-2 (PCR) (Negative) Range/Units 08/15/22 19:01 WBC (4.4-10.8) 10^3/uL RBC (4.36-5.78) 10^6/uL Hgb (13.5-17.5) g/dL Hct (40.0-50.0) % MCV (80-95) fL MCH (27.0-33.0) pg MCHC (32.0-36.0) % RDW (11.8-14.1) % Plt Count (130-400) 10^3/uL MPV (8.0-11.0) fL Immature Gran % Neutrophils % Lymphocytes % Monocytes % Eosinophils % Basophils % Nucleated RBC % (0.0-0.3) % Absolute Neutrophils (1.2-6.7) 10^3/uL Absolute Lymphocytes (1.2-3.4) 10^3/uL Absolute Monocytes (0.1-0.8) 10^3/uL Absolute Eosinophils (0.0-0.7) 10^3/uL Absolute Basophils (0.0-0.2) 10^3/uL VBG pH (7.31-7.41) VBG pCO2 (41-51) mmHg VBG pO2 mmHg VBG HCO3 (23-28) mmol/L VBG Total CO2 (24-29) mmol/L VBG O2 Saturation % VBG Base Excess (-2-3) mmol/L Sodium (136-145) mmol/L Potassium (3.5-5.1) mmol/L Chloride (98-107) mmol/L Carbon Dioxide (21.0-32.0) mmol/L Anion Gap (3-11) mmol/L BUN (7-18) mg/dL Creatinine (0.70-1.30) mg/dL Est GFR (CKD-EPI 2020) (mL/min/1.73m2) Glucose (74-106) mg/dL Calcium (8.5-10.1) mg/dL Magnesium (1.8-2.4) mg/dL Total Bilirubin (0.2-1.0) mg/dL AST (15-37) U/L ALT (16-63) U/L Alkaline Phosphatase (46-116) U/L Troponin I (<or=60) ng/L < 50 Total Protein (6.4-8.2) g/dL Albumin (3.4-5.0) g/dL COVID-19 Source SARS-CoV-2 (PCR) (Negative) Procedure Note Date of procedure: 08/16/22 Pre-op diagnosis: Non-resolving Pneumothorax Post-op diagnosis: same Procedure: Procedure Performed: Chemical Pleurodesis of Left Lung The procedure, risks, benefits and odds of success were discussed with the patient who verbally consented to undergoing procedure. Patient was pre-medicated with 1mg Dilaudid IV prior to procedure The chest tube dressing was re-dressed in order to have the three was valve exposed for procedure and safety while being clamped. The chest tube was clamped and was flushed with 8cc NS. I then instilled 10mL or 1% lidocaine through the chest tube for additional anesthesia. Next, 500mg of doxycycline in 50cc of NS was slowly instilled through the chest tube without complication. The patient was then placed in Trendelenburg, supine and in reverse Trendelenburg positions and had him roll from left, on back and on right sided for 2 minutes per position. He did experience pain throughout the procedure. He was then put back to a comfortable seated position. The chest tube remained clamped. Patient was instructed to roll himself from the right to the left every few minutes and to stay in the position for a few minutes. Nursing was instructed to lay the patient in a flat position and roll him from side to side, staying in each position for a couple minutes every 15 minutes. Nursing instructed to unclamp the patient (instruction on how to do this was provided to staff design engineer) at 10 am. No immediate complications, aside from expected pain. Bette Marino MD Pulmonary & Critical Care Medicine
[2022-08-16] MEDS: HYDROmorphone 2 MG/ML VIAL 1 MG IVP (08:35)
[2022-08-16] MEDS: Normal Saline Flush 10 ML SYR IVP ×2 (08:36→09:53)
--- NOTE | 2022-08-16 08:37 | PDOC.CMPRO ---
- If Service Date Differs Date of service: 08/16/22 Time of Service: 08:37 Care Management Progress Note S/O: Dmitry remains inpatient. Certified Diabetes Educator Dr. Marino completed a chemical pleuracentesis this morning, if Dmitry does not improve Dr. Chen reports transfer for VATs will be sought. CM continues to follow. A: Gregorio is a 77 year old male admitted to [facility] on 08/03/22 with pneumothorax. P: Undetermined plan at this time; per MD transfer remains possible. CM will continue to follow.
[2022-08-16] MEDS: Lidocaine 1% Multi-Dose 10 ML VIAL IJ (09:03)
--- NOTE | 2022-08-16 09:36 | W.PM.PROGNOT ---
Date of Service Date of service: 08/16/22 Time of Service: 09:36 Assessment and Plan Assessment and plan (1) Subcutaneous emphysema: Status: Acute (2) Persistent air leak: Status: Acute Assessment and plan: no change (3) Ruptured emphysematous bleb of lung: Status: Acute Assessment and plan: Denies any chest pain, pressure or tightness. He is in fairly good spirits however is ready to return home. Denies any SOB or pain. Left VATS and mechanical pleuredesis was aborted yesterday Chest tube remains in place. Plan to proceed with chemical pleuredesis later today with Dr. Marino. -D/w Pulm. Chemical pleurodecisis completed. Will see how pt responds cont supportive care. (4) Discharge planning issues: Status: Acute (5) Tobacco abuse disorder: Status: Acute (6) COPD (chronic obstructive pulmonary disease): Status: Chronic (7) Pneumothorax: Status: Acute Subjective Subjective Interval history since last seen: Arrive with the patient reporting he is feeling the same today. He expresses that he is very eager to return home. Exam Const General: cooperative, healthy appearing and comfortable Orientation: alert and oriented x3 Resp Effort & Inspection: normal respiratory effort, no audible wheezes and no cough Other: Chest tube in place. Constant air leak noted Objective Last Vital Signs Temp 36.4 C L 08/16/22 07:39 Pulse 88 08/16/22 07:39 Resp 16 08/16/22 07:39 BP 104/65 08/16/22 07:39 Pulse Ox 93 08/16/22 08:51 Laboratory Results - last 24 hr 08/15/22 08/15/22 08/15/22 13:28 13:28 19:01 Sodium 140 Cancelled Potassium 4.4 Cancelled Chloride 107 Cancelled Carbon Dioxide 30.2 Cancelled Anion Gap 2.8 L Cancelled BUN 23 H Cancelled Creatinine 1.2 Cancelled Est GFR (CKD-EPI 2020) 62.29 Cancelled Glucose 115 H Cancelled Calcium 8.8 Cancelled Total Bilirubin 0.2 Cancelled AST 17 Cancelled ALT 31 Cancelled Alkaline Phosphatase 56 Cancelled Troponin I < 50 < 50 Total Protein 5.9 L Cancelled Albumin 2.6 L Cancelled Time Spent with Patient Time Spent with Patient: <25 minutes Time was spent: preparing to see the patient(eg.review tests), obtaining and/or reviewing separately otained hiistory, ordering medications,tests, procedures, referring, communicating with other health manager medicare marketing, indepentently interpreting results, counseling the patient and care coordination
[2022-08-16] MEDS: Ketorolac 30 MG/ML VIAL IVP (09:52)
[2022-08-16] MEDS: Budesonide/Formoterol 80/4.5 6.9 GM 60 PUFF INH IH ×2 (10:09→19:13)
[2022-08-16] MEDS: Tiotropium Bromide-Respimat 10 PUFF INH 2 PUFF IH (10:09)
[2022-08-16] MEDS: traMADol 50 MG TAB PO (10:59)
[2022-08-16] MEDS: Nicotine 21 MG/24 HR PATCH TD (11:01)
[2022-08-16] MEDS: Docusate Sodium 100 MG CAP PO ×2 (11:01→20:05)
[2022-08-16] MEDS: buPROPion-CR 150 MG TABCR PO ×2 (11:01→20:05)
[2022-08-16] MEDS: Clotrimazole 1% 15 GM TUBE TP ×2 (11:56→20:06)
[2022-08-16] MEDS: Enoxaparin 40 MG/0.4 ML SYR SC (15:54)
[2022-08-17] VITALS (14 sets, daily range): BP systolic 95–135; BP diastolic 55–70; PULSE 75–99; RESP 15–22; TEMP 36.4–37.2; O2SAT 90–96
[2022-08-17 07:10] LABS: HCT 40.2 % (40.0-50.0); HGB 13.9 g/dL (13.5-17.5); MCH 32.1 pg (27.0-33.0); MCHC 34.6 % (32.0-36.0); MCV 93 fL (80-95); MPV 8.3 fL (8.0-11.0); Platelet Count 245 10^3/uL (130-400); RBC 4.33 10^6/uL (4.36-5.78); RDW 12.4 % (11.8-14.1); RDW-SD 42.9 fL; WBC 13.97 10^3/uL (4.4-10.8)
[2022-08-17] MEDS: Tiotropium Bromide-Respimat 10 PUFF INH 2 PUFF IH (07:46)
[2022-08-17] MEDS: Budesonide/Formoterol 80/4.5 6.9 GM 60 PUFF INH IH ×2 (07:46→22:18)
[2022-08-17] MEDS: buPROPion-CR 150 MG TABCR PO ×2 (07:50→20:09)
[2022-08-17] MEDS: traMADol 50 MG TAB PO ×2 (07:50→20:09)
[2022-08-17] MEDS: Polyethylene Glycol 3350 17 GM PACKET PO (07:51)
[2022-08-17] MEDS: Nicotine 21 MG/24 HR PATCH TD (07:51)
[2022-08-17] MEDS: Normal Saline Flush 10 ML SYR IVP (07:51)
[2022-08-17] MEDS: Docusate Sodium 100 MG CAP PO ×2 (07:51→20:09)
[2022-08-17] MEDS: Clotrimazole 1% 15 GM TUBE TP ×2 (07:51→20:10)
--- NOTE | 2022-08-17 08:01 | W.PM.PROGNOT ---
Date of Service Date of service: 08/17/22 Time of Service: 08:01 Assessment and Plan Assessment and plan (1) Subcutaneous emphysema: Status: Acute (2) Persistent air leak: Status: Acute Assessment and plan: no change (3) Ruptured emphysematous bleb of lung: Status: Acute Assessment and plan: Denies any chest pain, pressure or tightness. He is in fairly good spirits however is ready to return home. Denies any SOB or pain. Chemical pleurodecisis completed on 08/16, continued air leak noted today. cont supportive care I saw and examined Gregorio, and I agree with Love's notes. He says he feels pretty good, but he still has a frequent intermittent air leak. We talked about the sequence of events in the operating room, as well as his recent chemical pleurodesis. We will plan to transition the chest tube over to waterseal tomorrow in an effort to reassess the lung. If he can maintain inflation of the lung, with just the air leak, then we can try to get him discharged home with a Heimlich valve. If the lung falls again, then we will need to move forward with another intervention. I think at this point, the most likely source of his EKG changes in the operating room were either recurrent pneumothorax, or perhaps extrinsic compression on the heart from the dual-lumen endotracheal tube. If his pneumothorax is persistent tomorrow, and the EKG remains normal, then I think the latter is the more likely cause. If that is the case, and I think we really need to give consideration to transfer to another center, where endobronchial valve, or perhaps a bronchial mary jo with operative pleurodesis may be potential treatment options. (4) Discharge planning issues: Status: Acute (5) Tobacco abuse disorder: Status: Acute (6) COPD (chronic obstructive pulmonary disease): Status: Chronic (7) Pneumothorax: Status: Acute Subjective Subjective Interval history since last seen: patient states that he feels about the same today. Denies any pain or SOB. Exam Const General: cooperative, healthy appearing and comfortable Orientation: alert and oriented x3 Resp Effort & Inspection: normal respiratory effort, no audible wheezes and no cough Other: Chest tube in place on wall suction. Continous air leak noted Objective Last Vital Signs Temp 37.2 C 08/17/22 07:20 Pulse 90 08/17/22 07:20 Resp 19 08/17/22 07:20 BP 101/60 08/17/22 07:20 Pulse Ox 93 08/17/22 07:58 Laboratory Results - last 24 hr 08/17/22 06:45 WBC 13.97 H RBC 4.33 L Hgb 13.9 Hct 40.2 MCV 93 MCH 32.1 MCHC 34.6 RDW 12.4 Plt Count 245 MPV 8.3 Time Spent with Patient Time Spent with Patient: 25-34 minutes Time was spent: counseling the patient and care coordination
--- NOTE | 2022-08-17 08:23 | DI.RAD_ITS ---
Exam(s) XR PORTABLE CHEST AP EXAM: XR PORTABLE CHEST AP CLINICAL HISTORY: ptx. s/p pleurodecisis TECHNIQUE: 2D digital imaging was performed of the chest. Two images were obtained. AP views were obtained. COMPARISON: CR XR PORTABLE CHEST AP from 08/11/2022 CR,XR XR CHEST 2V PA LATERAL from 08/13/2022 FINDINGS: MEDIASTINUM: Normal. HEART: Normal. PULMONARY VASCULATURE: Normal. LUNGS: The lung steiner are unchanged. Slight increased infiltrate is again seen in the left lung bas e. It is not significantly worsened. PLEURAL SPACE: There has been no change in the small left apical pneumothorax. No right pneumothorax . The pigtail catheter in the left hemithorax is unchanged. There is now blunting of the left costo phrenic angle suggesting a small pleural effusion. BONE:Within normal limits for the patient's age. OTHER FINDINGS:There is persistent subcutaneous air along the left chest wall. IMPRESSION: 1. Stable small left apical pneumothorax. 2. Findings suggestive of small new pleural effusion. DATA REPOSITORY: RADIATION DOSE DELIVERED:
--- NOTE | 2022-08-17 12:11 | CMPROGNOTE_ITS ---
- If Service Date Differs Date of service: 08/17/22 Time of Service: 12:11 Care Management Progress Note S/O: Dmitry was sleeping when CM attempted to meet with him. Per report, he had a repeat chest xray this morning, which is suggestive of a small new pleural effusion. Dmitry is looking forward to returning home. CM will continue to follow. A: Gregorio is a 77 year old male admitted to [facility] on 08/03/22 with pneumothorax. P: Undetermined plan at this time; per MD transfer remains possible. CM will continue to follow.
[2022-08-17 13:34] LABS: Lab Add On Test DONE
[2022-08-17] MEDS: Enoxaparin 40 MG/0.4 ML SYR SC (16:09)
[2022-08-17 18:58] LABS: Procalcitonin < 0.1 ng/mL
[2022-08-18] VITALS (12 sets, daily range): BP systolic 95–119; BP diastolic 57–72; PULSE 74–98; RESP 16–20; TEMP 35.9–36.9; O2SAT 89–98
[2022-08-18 06:34] LABS: Abs Immature Grans 0.05 10^3/uL (0.0-0.06); Absolute Basophil Count 0.05 10^3/uL (0.0-0.2); Absolute Eosinophil Count 0.87 10^3/uL (0.0-0.7); Absolute Lymphocyte Count 1.33 10^3/uL (1.2-3.4); Absolute Monocyte Count 1.38 10^3/uL (0.1-0.8); Basophils % 0.5; Eosinophils % 7.9; HCT 39.1 % (40.0-50.0); HGB 13.4 g/dL (13.5-17.5); Immature Grans % 0.5; Lymphocytes % 12.1; MCH 31.8 pg (27.0-33.0); MCHC 34.3 % (32.0-36.0); MCV 93 fL (80-95); MPV 8.7 fL (8.0-11.0); Monocytes % 12.6; Neutrophils % 66.4; Platelet Count 224 10^3/uL (130-400); RBC 4.21 10^6/uL (4.36-5.78); RDW 12.6 % (11.8-14.1); RDW-SD 43.3 fL; WBC 10.99 10^3/uL (4.4-10.8)
--- NOTE | 2022-08-18 07:55 | W.PM.PROGNOT ---
Date of Service Date of service: 08/18/22 Time of Service: 07:55 Assessment and Plan Assessment and plan (1) Subcutaneous emphysema: Status: Acute (2) Persistent air leak: Status: Acute Assessment and plan: no change (3) Ruptured emphysematous bleb of lung: Status: Acute Assessment and plan: Denies any chest pain, pressure or tightness. Denies any SOB or pain. Chemical pleurodecisis completed on 08/16, continued air leak noted today. cont supportive care Will put to water seal this morning and check chest XR around 10am to evaluate for residual pneumothorax. If patient has any desaturation, chest pain, pressure or feelings of shortness of breath nursing was instructed to return him to suction and we will proceed with a chest x-ray at that time. -12:30 -Repeat chest x-ray does show pneumothorax. Patient was asymptomatic. We put him back to suction at 10 PSI. -I did discuss the situation with pulmonary. Dr. Miles did discuss with her colleagues at [facility]. Any other adjuvant procedures would had to be done with general anesthesia. And they want to do anesthesia until he has a stress test. But cardiology wants him off off of the chest tube before they will do a cath. We did discuss placing a larger chest tube and talc. With the pleural pigtail, this may be in the fissure and thus preventing adequate dispersal of the doxycycline into the pleura. I discussed this situation with anesthesia. They would like to get a nuclear stress test. We cannot obtain this until Monday. The talc is available from a compounding pharmacy in [place]. Which will probably be available Monday or Monday. So then we could plan on doing a chest tube with light sedation in the OR and a talc pleurodesis. Patient would need to be in the hospital over the weekend again on suction. (4) Discharge planning issues: Status: Acute (5) Tobacco abuse disorder: Status: Acute (6) COPD (chronic obstructive pulmonary disease): Status: Chronic (7) Pneumothorax: Status: Acute Subjective Subjective Interval history since last seen: Mr. Lazo denies any shortness of breath or chest pain. He states he continues to feel about the same. Exam Const General: cooperative, healthy appearing and comfortable Orientation: alert and oriented x3 Resp Effort & Inspection: normal respiratory effort, no audible wheezes and no cough Other: Chest tube in place with persistent air leak Objective Last Vital Signs Temp 36.9 C 08/18/22 06:52 Pulse 77 08/18/22 06:52 Resp 16 08/18/22 06:52 BP 112/63 08/18/22 06:52 Pulse Ox 94 08/18/22 06:52 Laboratory Results - last 24 hr 08/17/22 08/17/22 08/18/22 18:15 Unknown 05:50 WBC 10.99 H RBC 4.21 L Hgb 13.4 L Hct 39.1 L MCV 93 MCH 31.8 MCHC 34.3 RDW 12.6 Plt Count 224 MPV 8.7 Immature Gran % 0.5 Neutrophils % 66.4 Lymphocytes % 12.1 Monocytes % 12.6 Eosinophils % 7.9 Basophils % 0.5 Nucleated RBC % 0.0 Absolute Neutrophils 7.30 H Absolute Lymphocytes 1.33 Absolute Monocytes 1.38 H Absolute Eosinophils 0.87 H Absolute Basophils 0.05 Procalcitonin < 0.1 Add-On Test Request DONE Time Spent with Patient Time Spent with Patient: >50 minutes Time was spent: preparing to see the patient(eg.review tests), obtaining and/or reviewing separately otained hiistory, ordering medications,tests, procedures, referring, communicating with other health pet caregiver, indepentently interpreting results and care coordination
[2022-08-18] MEDS: Polyethylene Glycol 3350 17 GM PACKET PO (08:08)
[2022-08-18] MEDS: Nicotine 21 MG/24 HR PATCH TD (08:08)
[2022-08-18] MEDS: buPROPion-CR 150 MG TABCR PO ×2 (08:08→20:03)
[2022-08-18] MEDS: Normal Saline Flush 10 ML SYR IVP (08:09)
[2022-08-18] MEDS: Docusate Sodium 100 MG CAP PO ×2 (08:09→20:03)
[2022-08-18] MEDS: Clotrimazole 1% 15 GM TUBE TP (08:09)
--- NOTE | 2022-08-18 08:30 | DI.RAD_ITS ---
Exam(s) XR PORTABLE CHEST AP EXAM: XR PORTABLE CHEST AP CLINICAL HISTORY: ptx. s/p pleurodecisis TECHNIQUE: 2D digital imaging was performed of the chest. Two images were obtained. AP views were obtained. COMPARISON: CR XR PORTABLE CHEST AP from 08/17/2022 FINDINGS: MEDIASTINUM: Normal. HEART: Normal. PULMONARY VASCULATURE: Normal. LUNGS: Atelectasis in the left lower lobe is noted. PLEURAL SPACE: There has been an increase in size of the left pleural effusion which now can be trace d along the entire left lateral chest wall. There is again seen a left pigtail catheter type chest t ube. No right pneumothorax. No pleural effusion. BONE:Within normal limits for the patient's age. OTHER FINDINGS:Subcutaneous edema seen along the left lateral chest wall. IMPRESSION: 1. Interval increase in size of the left pneumothorax since 08/17/2022. 2. Left lower lobe atelectasis. DATA REPOSITORY: RADIATION DOSE DELIVERED:
[2022-08-18] MEDS: Tiotropium Bromide-Respimat 10 PUFF INH 2 PUFF IH (09:04)
[2022-08-18] MEDS: Budesonide/Formoterol 80/4.5 6.9 GM 60 PUFF INH IH ×2 (09:05→20:04)
--- NOTE | 2022-08-18 09:41 | NUR.NOTE ---
Nursing Note: notified charge nurse monica of changes noted to pt feet. pt has 2 new red spots that are non blanching to the top of the left big toe, and a second spot to the Achilles ankle that is red, tender, and non blanchable. skin prep was applied to these spots and am attempting to find heal protectors.
--- NOTE | 2022-08-18 09:49 | PGE_ITS ---
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 He has been unable to come off wall suction at all. His attempted VATS yesterday was unable to proceed due to hypotension that was likely related to induction agents. Unfortunately, [facility] and [facility] are not currently accepting patients and the patient has been here since 08/03. I was asked to consider chemical pleurodesis, which I did complete as we were somewhat out of options. It was unsuccessful. I do recommend having Interventional pulmonary assess him for endobronchial valves at this point. It appears as though he will be placed on water seal and reassessed for worsening PNX and potentially discharged with outpt follow up. Spontaneous Pneumothorax - appropriate function of current pigtail - waterseal trial today - can consider calling interventional pulmonary regarding endobronchial valves COPD - on Trelegy at home - substitution Symbicort and Spiriva is appropriate - prn nebs - will schedule to see as an outpatient for continued management General Date Of Service Date of service: 08/18/22 Time of Service: 09:49 Reason for Consult: Pneumothorax with continued air leak Subjective 24 Hour Events: He continued to have air leak after chemical pleurodesis attempt. Note Note: Reji is feeling fine. He states he needs to go home to pay bills. Exam Narrative Exam Narrative: Gen:?NAD, normal respiratory effort, well-nourished HENT:?PERRL Chest:?No respiratory distress, normal appearance of chest, clear breath sounds. Chest tube interrogated and functioning appropriately.Air leak with gentle coughing Heart:?regular rate and rhythym, no murmurs, rubs or gallops Abdomen:?Non-distended, soft, non tender Extremities:?No clubbing, There is subcutaneous air present on left chest that has improved Neuro:?AAOx3 , non focal Psych:?cooperative, appropriate mental affect Objective Last Vital Signs Temp 36.9 C 08/18/22 06:52 Pulse 98 H 08/18/22 07:00 Resp 16 08/18/22 06:52 BP 112/63 08/18/22 06:52 Pulse Ox 93 08/18/22 09:06 Laboratory Results - last 24 hr 08/17/22 08/17/22 08/18/22 18:15 Unknown 05:50 WBC 10.99 H RBC 4.21 L Hgb 13.4 L Hct 39.1 L MCV 93 MCH 31.8 MCHC 34.3 RDW 12.6 Plt Count 224 MPV 8.7 Immature Gran % 0.5 Neutrophils % 66.4 Lymphocytes % 12.1 Monocytes % 12.6 Eosinophils % 7.9 Basophils % 0.5 Nucleated RBC % 0.0 Absolute Neutrophils 7.30 H Absolute Lymphocytes 1.33 Absolute Monocytes 1.38 H Absolute Eosinophils 0.87 H Absolute Basophils 0.05 Procalcitonin < 0.1 Add-On Test Request DONE Results Medications Medications: Active Medications Generic Name Dose Route Start Last Admin Trade Name Freq PRN Reason Stop Dose Admin Budesonide/Formoterol Fumarate 2 puff 08/03/22 20:00 08/18/22 09:05 Budesonide/Formoterol 80/4.5 6.9 Gm 60 Puff Inh IH 2 puff BID KYLEE Administration Bupropion HCl 150 mg 08/04/22 08:30 08/18/22 08:08 Bupropion-Cr 150 Mg Tabcr PO 150 mg BID KYLEE Administration Clotrimazole 0 gm 08/13/22 20:00 08/18/22 08:09 Clotrimazole 1% 15 Gm Tube TP 1 applic BID KYLEE Administration Device 1 each 08/03/22 19:00 Inhaler, Assist Device DIRECTED KYLEE Dimethicone/Zinc Oxide 0 gm 08/03/22 18:47 Sharita Protect Cream 142 Gm Tube TP PRN PRN Docusate Sodium 100 mg 08/15/22 20:00 08/18/22 08:09 Docusate Sodium 100 Mg Cap PO 100 mg BID KYLEE Administration Enoxaparin Sodium 40 mg 08/05/22 16:00 08/17/22 16:09 Enoxaparin 40 Mg/0.4 Ml Syr SC 40 mg Q24H KYLEE Administration Hydromorphone HCl 1 mg 08/12/22 07:20 08/16/22 08:35 Hydromorphone 2 Mg/Ml Vial IVP 1 mg Q3H PRN PRN Administration Pain Sodium Chloride 500 mls @ 0 mls/hr 08/05/22 10:44 Saline 500ml Bag IV PRN PRN As Directed IV Miscellaneous Supplies 1 each 08/05/22 10:45 Iv Access IV DIRECTED KYLEE Levalbuterol HCl 1.25 mg 08/04/22 19:15 08/06/22 05:29 Levalbuterol 1.25 Mg/3 Ml Upd Vial UPD 1.25 mg Q2H PRN PRN Administration Nicotine 21 mg 08/05/22 08:30 08/18/22 08:08 Nicotine 21 Mg/24 Hr Patch TD 21 mg DAILY KYLEE Administration Polyethylene Glycol 17 gm 08/13/22 15:05 08/18/22 08:08 Polyethylene Glycol 3350 17 Gm Packet PO 17 gm DAILY KYLEE Administration Sodium Chloride 0 ml 08/05/22 10:44 08/18/22 08:09 Normal Saline Flush 10 Ml Syr IVP 10 ml PRN PRN Administration Tiotropium Finley 2 puff 08/05/22 08:30 08/18/22 09:04 Tiotropium Finley-Respimat 10 Puff Inh IH 2 inh DAILY KYLEE Administration Tramadol HCl 50 mg 08/06/22 20:53 08/17/22 20:09 Tramadol 50 Mg Tab PO 50 mg Q6H PRN PRN Administration Pain Allergies No Known Allergies Allergy (Unverified 03/29/14 11:30) Labs 08/18/22 05:50 08/15/22 13:28 Labs: Laboratory Tests Range/Units 08/03/22 08/03/22 08/03/22 16:40 16:40 16:40 WBC (4.4-10.8) 10^3/uL 13.51 H RBC (4.36-5.78) 10^6/uL 4.79 Hgb (13.5-17.5) g/dL 15.3 Hct (40.0-50.0) % 43.7 MCV (80-95) fL 91 MCH (27.0-33.0) pg 31.9 MCHC (32.0-36.0) % 35.0 RDW (11.8-14.1) % 12.3 Plt Count (130-400) 10^3/uL 272 MPV (8.0-11.0) fL 8.8 Immature Gran % 0.3 Neutrophils % 91.6 Lymphocytes % 3.8 Monocytes % 4.0 Eosinophils % 0.1 Basophils % 0.2 Nucleated RBC % (0.0-0.3) % 0.0 Absolute Neutrophils (1.2-6.7) 10^3/uL 12.38 H Absolute Lymphocytes (1.2-3.4) 10^3/uL 0.51 L Absolute Monocytes (0.1-0.8) 10^3/uL 0.54 Absolute Eosinophils (0.0-0.7) 10^3/uL 0.01 Absolute Basophils (0.0-0.2) 10^3/uL 0.03 VBG pH (7.31-7.41) 7.28 L VBG pCO2 (41-51) mmHg 54 H VBG pO2 mmHg 41 VBG HCO3 (23-28) mmol/L 25 VBG Total CO2 (24-29) mmol/L 23 L VBG O2 Saturation % 73 VBG Base Excess (-2-3) mmol/L -1 Sodium (136-145) mmol/L 138 Potassium (3.5-5.1) mmol/L 4.3 Chloride (98-107) mmol/L 100 Carbon Dioxide (21.0-32.0) mmol/L 26.8 Anion Gap (3-11) mmol/L 11.2 H BUN (7-18) mg/dL 23 H Creatinine (0.70-1.30) mg/dL 1.3 Est GFR (CKD-EPI 2020) (mL/min/1.73m2) 56.58 Glucose (74-106) mg/dL 169 H Calcium (8.5-10.1) mg/dL 9.4 Magnesium (1.8-2.4) mg/dL 1.9 Total Bilirubin (0.2-1.0) mg/dL 0.7 AST (15-37) U/L 16 ALT (16-63) U/L 22 Alkaline Phosphatase (46-116) U/L 73 Troponin I (<or=60) ng/L < 50 Total Protein (6.4-8.2) g/dL 7.9 Albumin (3.4-5.0) g/dL 4.0 Procalcitonin ng/mL COVID-19 Source SARS-CoV-2 (PCR) (Negative) Add-On Test Request Range/Units 08/03/22 08/04/22 08/04/22 20:11 05:32 05:32 WBC (4.4-10.8) 10^3/uL 7.83 RBC (4.36-5.78) 10^6/uL 4.17 L Hgb (13.5-17.5) g/dL 13.4 L Hct (40.0-50.0) % 38.8 L MCV (80-95) fL 93 MCH (27.0-33.0) pg 32.1 MCHC (32.0-36.0) % 34.5 RDW (11.8-14.1) % 12.5 Plt Count (130-400) 10^3/uL 182 MPV (8.0-11.0) fL 10.0 Immature Gran % 0.3 Neutrophils % 87.0 Lymphocytes % 5.7 Monocytes % 6.9 Eosinophils % 0.0 Basophils % 0.1 Nucleated RBC % (0.0-0.3) % 0.0 Absolute Neutrophils (1.2-6.7) 10^3/uL 6.81 H Absolute Lymphocytes (1.2-3.4) 10^3/uL 0.45 L Absolute Monocytes (0.1-0.8) 10^3/uL 0.54 Absolute Eosinophils (0.0-0.7) 10^3/uL 0.00 Absolute Basophils (0.0-0.2) 10^3/uL 0.01 VBG pH (7.31-7.41) VBG pCO2 (41-51) mmHg VBG pO2 mmHg VBG HCO3 (23-28) mmol/L VBG Total CO2 (24-29) mmol/L VBG O2 Saturation % VBG Base Excess (-2-3) mmol/L Sodium (136-145) mmol/L 137 Potassium (3.5-5.1) mmol/L 4.2 Chloride (98-107) mmol/L 103 Carbon Dioxide (21.0-32.0) mmol/L 25.6 Anion Gap (3-11) mmol/L 8.4 BUN (7-18) mg/dL 23 H Creatinine (0.70-1.30) mg/dL 1.0 Est GFR (CKD-EPI 2020) (mL/min/1.73m2) 77.52 Glucose (74-106) mg/dL 155 H Calcium (8.5-10.1) mg/dL 8.9 Magnesium (1.8-2.4) mg/dL Total Bilirubin (0.2-1.0) mg/dL 0.4 AST (15-37) U/L 22 ALT (16-63) U/L 22 Alkaline Phosphatase (46-116) U/L 58 Troponin I (<or=60) ng/L Total Protein (6.4-8.2) g/dL 6.6 Albumin (3.4-5.0) g/dL 3.2 L Procalcitonin ng/mL COVID-19 Source Nasal/Nares SARS-CoV-2 (PCR) (Negative) Negative Add-On Test Request Range/Units 08/04/22 08/08/22 08/11/22 05:35 11:53 06:30 WBC (4.4-10.8) 10^3/uL 8.31 9.15 RBC (4.36-5.78) 10^6/uL 4.21 L 4.26 L Hgb (13.5-17.5) g/dL 13.5 13.6 Hct (40.0-50.0) % 39.0 L 39.9 L MCV (80-95) fL 93 94 MCH (27.0-33.0) pg 32.1 31.9 MCHC (32.0-36.0) % 34.6 34.1 RDW (11.8-14.1) % 12.8 12.6 Plt Count (130-400) 10^3/uL 222 238 MPV (8.0-11.0) fL 8.9 8.5 Immature Gran % Neutrophils % Lymphocytes % Monocytes % Eosinophils % Basophils % Nucleated RBC % (0.0-0.3) % Absolute Neutrophils (1.2-6.7) 10^3/uL Absolute Lymphocytes (1.2-3.4) 10^3/uL Absolute Monocytes (0.1-0.8) 10^3/uL Absolute Eosinophils (0.0-0.7) 10^3/uL Absolute Basophils (0.0-0.2) 10^3/uL VBG pH (7.31-7.41) VBG pCO2 (41-51) mmHg VBG pO2 mmHg VBG HCO3 (23-28) mmol/L VBG Total CO2 (24-29) mmol/L VBG O2 Saturation % VBG Base Excess (-2-3) mmol/L Sodium (136-145) mmol/L Cancelled Potassium (3.5-5.1) mmol/L Cancelled Chloride (98-107) mmol/L Cancelled Carbon Dioxide (21.0-32.0) mmol/L Cancelled Anion Gap (3-11) mmol/L Cancelled BUN (7-18) mg/dL Cancelled Creatinine (0.70-1.30) mg/dL Cancelled Est GFR (CKD-EPI 2020) (mL/min/1.73m2) Cancelled Glucose (74-106) mg/dL Cancelled Calcium (8.5-10.1) mg/dL Cancelled Magnesium (1.8-2.4) mg/dL Total Bilirubin (0.2-1.0) mg/dL AST (15-37) U/L ALT (16-63) U/L Alkaline Phosphatase (46-116) U/L Troponin I (<or=60) ng/L Total Protein (6.4-8.2) g/dL Albumin (3.4-5.0) g/dL Procalcitonin ng/mL COVID-19 Source SARS-CoV-2 (PCR) (Negative) Add-On Test Request Range/Units 08/14/22 08/15/22 08/15/22 05:58 13:28 13:28 WBC (4.4-10.8) 10^3/uL 10.42 RBC (4.36-5.78) 10^6/uL 4.15 L Hgb (13.5-17.5) g/dL 13.3 L Hct (40.0-50.0) % 38.5 L MCV (80-95) fL 93 MCH (27.0-33.0) pg 32.0 MCHC (32.0-36.0) % 34.5 RDW (11.8-14.1) % 12.6 Plt Count (130-400) 10^3/uL 230 MPV (8.0-11.0) fL 8.6 Immature Gran % Neutrophils % Lymphocytes % Monocytes % Eosinophils % Basophils % Nucleated RBC % (0.0-0.3) % Absolute Neutrophils (1.2-6.7) 10^3/uL Absolute Lymphocytes (1.2-3.4) 10^3/uL Absolute Monocytes (0.1-0.8) 10^3/uL Absolute Eosinophils (0.0-0.7) 10^3/uL Absolute Basophils (0.0-0.2) 10^3/uL VBG pH (7.31-7.41) VBG pCO2 (41-51) mmHg VBG pO2 mmHg VBG HCO3 (23-28) mmol/L VBG Total CO2 (24-29) mmol/L VBG O2 Saturation % VBG Base Excess (-2-3) mmol/L Sodium (136-145) mmol/L 140 Cancelled Potassium (3.5-5.1) mmol/L 4.4 Cancelled Chloride (98-107) mmol/L 107 Cancelled Carbon Dioxide (21.0-32.0) mmol/L 30.2 Cancelled Anion Gap (3-11) mmol/L 2.8 L Cancelled BUN (7-18) mg/dL 23 H Cancelled Creatinine (0.70-1.30) mg/dL 1.2 Cancelled Est GFR (CKD-EPI 2020) (mL/min/1.73m2) 62.29 Cancelled Glucose (74-106) mg/dL 115 H Cancelled Calcium (8.5-10.1) mg/dL 8.8 Cancelled Magnesium (1.8-2.4) mg/dL Total Bilirubin (0.2-1.0) mg/dL 0.2 Cancelled AST (15-37) U/L 17 Cancelled ALT (16-63) U/L 31 Cancelled Alkaline Phosphatase (46-116) U/L 56 Cancelled Troponin I (<or=60) ng/L < 50 Total Protein (6.4-8.2) g/dL 5.9 L Cancelled Albumin (3.4-5.0) g/dL 2.6 L Cancelled Procalcitonin ng/mL COVID-19 Source SARS-CoV-2 (PCR) (Negative) Add-On Test Request Range/Units 08/15/22 08/17/22 08/17/22 19:01 06:45 18:15 WBC (4.4-10.8) 10^3/uL 13.97 H RBC (4.36-5.78) 10^6/uL 4.33 L Hgb (13.5-17.5) g/dL 13.9 Hct (40.0-50.0) % 40.2 MCV (80-95) fL 93 MCH (27.0-33.0) pg 32.1 MCHC (32.0-36.0) % 34.6 RDW (11.8-14.1) % 12.4 Plt Count (130-400) 10^3/uL 245 MPV (8.0-11.0) fL 8.3 Immature Gran % Neutrophils % Lymphocytes % Monocytes % Eosinophils % Basophils % Nucleated RBC % (0.0-0.3) % Absolute Neutrophils (1.2-6.7) 10^3/uL Absolute Lymphocytes (1.2-3.4) 10^3/uL Absolute Monocytes (0.1-0.8) 10^3/uL Absolute Eosinophils (0.0-0.7) 10^3/uL Absolute Basophils (0.0-0.2) 10^3/uL VBG pH (7.31-7.41) VBG pCO2 (41-51) mmHg VBG pO2 mmHg VBG HCO3 (23-28) mmol/L VBG Total CO2 (24-29) mmol/L VBG O2 Saturation % VBG Base Excess (-2-3) mmol/L Sodium (136-145) mmol/L Potassium (3.5-5.1) mmol/L Chloride (98-107) mmol/L Carbon Dioxide (21.0-32.0) mmol/L Anion Gap (3-11) mmol/L BUN (7-18) mg/dL Creatinine (0.70-1.30) mg/dL Est GFR (CKD-EPI 2020) (mL/min/1.73m2) Glucose (74-106) mg/dL Calcium (8.5-10.1) mg/dL Magnesium (1.8-2.4) mg/dL Total Bilirubin (0.2-1.0) mg/dL AST (15-37) U/L ALT (16-63) U/L Alkaline Phosphatase (46-116) U/L Troponin I (<or=60) ng/L < 50 Total Protein (6.4-8.2) g/dL Albumin (3.4-5.0) g/dL Procalcitonin ng/mL < 0.1 COVID-19 Source SARS-CoV-2 (PCR) (Negative) Add-On Test Request Range/Units 08/17/22 08/18/22 Unknown 05:50 WBC (4.4-10.8) 10^3/uL 10.99 H RBC (4.36-5.78) 10^6/uL 4.21 L Hgb (13.5-17.5) g/dL 13.4 L Hct (40.0-50.0) % 39.1 L MCV (80-95) fL 93 MCH (27.0-33.0) pg 31.8 MCHC (32.0-36.0) % 34.3 RDW (11.8-14.1) % 12.6 Plt Count (130-400) 10^3/uL 224 MPV (8.0-11.0) fL 8.7 Immature Gran % 0.5 Neutrophils % 66.4 Lymphocytes % 12.1 Monocytes % 12.6 Eosinophils % 7.9 Basophils % 0.5 Nucleated RBC % (0.0-0.3) % 0.0 Absolute Neutrophils (1.2-6.7) 10^3/uL 7.30 H Absolute Lymphocytes (1.2-3.4) 10^3/uL 1.33 Absolute Monocytes (0.1-0.8) 10^3/uL 1.38 H Absolute Eosinophils (0.0-0.7) 10^3/uL 0.87 H Absolute Basophils (0.0-0.2) 10^3/uL 0.05 VBG pH (7.31-7.41) VBG pCO2 (41-51) mmHg VBG pO2 mmHg VBG HCO3 (23-28) mmol/L VBG Total CO2 (24-29) mmol/L VBG O2 Saturation % VBG Base Excess (-2-3) mmol/L Sodium (136-145) mmol/L Potassium (3.5-5.1) mmol/L Chloride (98-107) mmol/L Carbon Dioxide (21.0-32.0) mmol/L Anion Gap (3-11) mmol/L BUN (7-18) mg/dL Creatinine (0.70-1.30) mg/dL Est GFR (CKD-EPI 2021) (mL/min/1.73m2) Glucose (74-106) mg/dL Calcium (8.5-10.1) mg/dL Magnesium (1.8-2.4) mg/dL Total Bilirubin (0.2-1.0) mg/dL AST (15-37) U/L ALT (16-63) U/L Alkaline Phosphatase (46-116) U/L Troponin I (<or=60) ng/L Total Protein (6.4-8.2) g/dL Albumin (3.4-5.0) g/dL Procalcitonin ng/mL COVID-19 Source SARS-CoV-2 (PCR) (Negative) Add-On Test Request DONE
--- NOTE | 2022-08-18 12:22 | CMPROGNOTE_ITS ---
- If Service Date Differs Date of service: 08/18/22 Time of Service: 12:22 Care Management Progress Note S/O: Dmitry was sitting up in bed when CM met with him. He stated that per MD, he is still waiting for transfer to a tertiary facility. He reported that he really needs to get home to pay his bills, and expressed concern about losing his apartment if he isn't able to pay his rent/electric. CM supported Dmitry while trying to brainstorm a way that he could pay his bills, or communicate with his landlord and the electric [employer], to let them know that he is currently hospitalized, and unable to access his bills/accounts. CM offered to write a letter verifying that he is inpatient at this time. He stated that he would make some phone calls. CM will continue to follow. A: Gregorio is a 77 year old male admitted to [facility] on 08/03/22 with pneumothorax. P: Undetermined plan at this time; per MD transfer remains possible. CM will continue to follow.
--- NOTE | 2022-08-18 12:56 | NUR.NOTE ---
Nursing Note: @[address] bucio came to update pt and place pt's chest tube to wall suction at 80mmhg and the chest tube atrium to 10 mmgh. pt was educated on collapsed lung per doctor bucio and that suction was needed again and that a repeat cxr was going to be completed in 2 hours. pt verbalizes understanding
--- NOTE | 2022-08-18 16:00 | DI.RAD_ITS ---
Exam(s) XR PORTABLE CHEST AP EXAM: XR PORTABLE CHEST AP CLINICAL HISTORY: ptx TECHNIQUE: 2D digital imaging was performed of the chest. Two images were obtained. AP views were obtained. COMPARISON: CR XR PORTABLE CHEST AP from 08/18/2022 FINDINGS: MEDIASTINUM: Normal. HEART: Normal. PULMONARY VASCULATURE: Normal. LUNGS: There is again seen atelectasis in the left lung. The right lung remains clear. PLEURAL SPACE: Compared with examination from earlier in the day there does not appear to be any sign ificant change in size of the left pneumothorax. There is no right pneumothorax. No significant eff usion is seen. The left pigtail type catheter is unchanged the left hemithorax. BONE:Within normal limits for the patient's age. OTHER FINDINGS:Persistent subcutaneous air seen in the left chest wall. IMPRESSION: Stable left pneumothorax. DATA REPOSITORY: RADIATION DOSE DELIVERED:
[2022-08-18] MEDS: traMADol 50 MG TAB PO (20:03)
[2022-08-19] VITALS (11 sets, daily range): BP systolic 100–120; BP diastolic 63–80; PULSE 67–104; RESP 14–20; TEMP 36.2–37; O2SAT 91–97
--- NOTE | 2022-08-19 07:12 | PGE_ITS ---
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 He has been unable to come off wall suction at all. His attempted VATS yesterday was unable to proceed due to hypotension that was likely related to induction agents. Unfortunately, [facility] and [facility] are not currently accepting patients and the patient has been here since 08/03. I was asked to consider chemical pleurodesis, which I did complete as we were somewhat out of options. It was unsuccessful. Interventional pulmonology did not wanted to consider valves given his response to sedation for his attempted VATS. His EKG never showed ischemia and his troponins never increased. His PNX will not improve with simple support and has failed a chemical pleurodesis. I do think we should attempt a return to the OR for another attempted VATS but with more cau tious sedation. I discussed a plan with anesthesia this morning and they will discuss the plan with Dr. Rasmussen. I do think we should get an MPI prior to OR, which has already been ordered and planned for Monday. Spontaneous Pneumothorax - appropriate function of current pigtail - suction at -10, waterseal trial - consider returning to OR for another attempt at VATS with more cautious sedation - having levophed running during induction, slow induction, have an ICU bed held for post operative care COPD - on Trelegy at home - substitution Symbicort and Spiriva is appropriate - prn nebs - will schedule to see as an outpatient for continued management General Date Of Service Date of service: 08/19/22 Time of Service: 07:12 Reason for Consult: Pneumothorax with continued air leak Subjective 24 Hour Events: Waterseal trial - increased PNX, placed on -[id number] Note Note: He is understandably frustrated with how things are going. Exam Narrative Exam Narrative: Gen:?NAD, normal respiratory effort, well-nourished HENT:?PERRL Chest:?No respiratory distress, normal appearance of chest, clear breath sounds. Chest tube interrogated and functioning appropriately.Air leak tidal breathing Heart:?regular rate and rhythym, no murmurs, rubs or gallops Abdomen:?Non-distended, soft, non tender Extremities:?No clubbing, There is subcutaneous air on left chest that has improved Neuro:?AAOx3 , non focal Psych:?cooperative, appropriate mental affect Objective Last Vital Signs Temp 36.6 C 08/19/22 06:49 Pulse 71 08/19/22 06:49 Resp 18 08/19/22 06:49 BP 107/65 08/19/22 06:49 Pulse Ox 93 08/19/22 06:49 Results Medications Medications: Active Medications Generic Name Dose Route Start Last Admin Trade Name Freq PRN Reason Stop Dose Admin Aminophylline 0 mg 08/21/22 08:00 Aminophylline 500 Mg/20 Ml Vial IVP 08/21/22 18:00 DIRECTED KYLEE Budesonide/Formoterol Fumarate 2 puff 08/03/22 20:00 08/18/22 20:04 Budesonide/Formoterol 80/4.5 6.9 Gm 60 Puff Inh IH 2 puff BID KYLEE Administration Bupropion HCl 150 mg 08/04/22 08:30 08/18/22 20:03 Bupropion-Cr 150 Mg Tabcr PO 150 mg BID KYLEE Administration Clotrimazole 0 gm 08/13/22 20:00 08/18/22 20:04 Clotrimazole 1% 15 Gm Tube TP Not Given BID KYLEE Device 1 each 08/03/22 19:00 Inhaler, Assist Device DIRECTED KYLEE Dimethicone/Zinc Oxide 0 gm 08/03/22 18:47 Sharita Protect Cream 142 Gm Tube TP PRN PRN Docusate Sodium 100 mg 08/15/22 20:00 08/18/22 20:03 Docusate Sodium 100 Mg Cap PO 100 mg BID KYLEE Administration Hydromorphone HCl 1 mg 08/12/22 07:20 08/16/22 08:35 Hydromorphone 2 Mg/Ml Vial IVP 1 mg Q3H PRN PRN Administration Pain Sodium Chloride 500 mls @ 0 mls/hr 08/05/22 10:44 Saline 500ml Bag IV PRN PRN As Directed IV Miscellaneous Supplies 1 each 08/05/22 10:45 Iv Access IV DIRECTED KYLEE Levalbuterol HCl 1.25 mg 08/04/22 19:15 08/06/22 05:29 Levalbuterol 1.25 Mg/3 Ml Upd Vial UPD 1.25 mg Q2H PRN PRN Administration Nicotine 21 mg 08/05/22 08:30 08/18/22 08:08 Nicotine 21 Mg/24 Hr Patch TD 21 mg DAILY KYLEE Administration Polyethylene Glycol 17 gm 08/13/22 15:05 08/18/22 08:08 Polyethylene Glycol 3350 17 Gm Packet PO 17 gm DAILY KYLEE Administration Regadenoson 0.4 mg 08/21/22 08:00 Regadenoson 0.4 Mg/5 Ml Syr IVP 08/21/22 18:00 TODAY KYLEE Sodium Chloride 0 ml 08/05/22 10:44 08/18/22 08:09 Normal Saline Flush 10 Ml Syr IVP 10 ml PRN PRN Administration Tiotropium [place] 2 puff 08/05/22 08:30 08/18/22 09:04 Tiotropium [place]-Respimat 10 Puff Inh IH 2 inh DAILY KYLEE Administration Tramadol HCl 50 mg 08/06/22 20:53 08/18/22 20:03 Tramadol 50 Mg Tab PO 50 mg Q6H PRN PRN Administration Pain Allergies No Known Allergies Allergy (Unverified 03/29/14 11:30) Labs 08/18/22 05:50 08/15/22 13:28 Labs: Laboratory Tests Range/Units 08/03/22 08/03/22 08/03/22 16:40 16:40 16:40 WBC (4.4-10.8) 10^3/uL 13.51 H RBC (4.36-5.78) 10^6/uL 4.79 Hgb (13.5-17.5) g/dL 15.3 Hct (40.0-50.0) % 43.7 MCV (80-95) fL 91 MCH (27.0-33.0) pg 31.9 MCHC (32.0-36.0) % 35.0 RDW (11.8-14.1) % 12.3 Plt Count (130-400) 10^3/uL 272 MPV (8.0-11.0) fL 8.8 Immature Gran % 0.3 Neutrophils % 91.6 Lymphocytes % 3.8 Monocytes % 4.0 Eosinophils % 0.1 Basophils % 0.2 Nucleated RBC % (0.0-0.3) % 0.0 Absolute Neutrophils (1.2-6.7) 10^3/uL 12.38 H Absolute Lymphocytes (1.2-3.4) 10^3/uL 0.51 L Absolute Monocytes (0.1-0.8) 10^3/uL 0.54 Absolute Eosinophils (0.0-0.7) 10^3/uL 0.01 Absolute Basophils (0.0-0.2) 10^3/uL 0.03 VBG pH (7.31-7.41) 7.28 L VBG pCO2 (41-51) mmHg 54 H VBG pO2 mmHg 41 VBG HCO3 (23-28) mmol/L 25 VBG Total CO2 (24-29) mmol/L 23 L VBG O2 Saturation % 73 VBG Base Excess (-2-3) mmol/L -1 Sodium (136-145) mmol/L 138 Potassium (3.5-5.1) mmol/L 4.3 Chloride (98-107) mmol/L 100 Carbon Dioxide (21.0-32.0) mmol/L 26.8 Anion Gap (3-11) mmol/L 11.2 H BUN (7-18) mg/dL 23 H Creatinine (0.70-1.30) mg/dL 1.3 Est GFR (CKD-EPI 2020) (mL/min/1.73m2) 56.58 Glucose (74-106) mg/dL 169 H Calcium (8.5-10.1) mg/dL 9.4 Magnesium (1.8-2.4) mg/dL 1.9 Total Bilirubin (0.2-1.0) mg/dL 0.7 AST (15-37) U/L 16 ALT (16-63) U/L 22 Alkaline Phosphatase (46-116) U/L 73 Troponin I (<or=60) ng/L < 50 Total Protein (6.4-8.2) g/dL 7.9 Albumin (3.4-5.0) g/dL 4.0 Procalcitonin ng/mL COVID-19 Source SARS-CoV-2 (PCR) (Negative) Add-On Test Request Range/Units 08/03/22 08/04/22 08/04/22 20:11 05:32 05:32 WBC (4.4-10.8) 10^3/uL 7.83 RBC (4.36-5.78) 10^6/uL 4.17 L Hgb (13.5-17.5) g/dL 13.4 L Hct (40.0-50.0) % 38.8 L MCV (80-95) fL 93 MCH (27.0-33.0) pg 32.1 MCHC (32.0-36.0) % 34.5 RDW (11.8-14.1) % 12.5 Plt Count (130-400) 10^3/uL 182 MPV (8.0-11.0) fL 10.0 Immature Gran % 0.3 Neutrophils % 87.0 Lymphocytes % 5.7 Monocytes % 6.9 Eosinophils % 0.0 Basophils % 0.1 Nucleated RBC % (0.0-0.3) % 0.0 Absolute Neutrophils (1.2-6.7) 10^3/uL 6.81 H Absolute Lymphocytes (1.2-3.4) 10^3/uL 0.45 L Absolute Monocytes (0.1-0.8) 10^3/uL 0.54 Absolute Eosinophils (0.0-0.7) 10^3/uL 0.00 Absolute Basophils (0.0-0.2) 10^3/uL 0.01 VBG pH (7.31-7.41) VBG pCO2 (41-51) mmHg VBG pO2 mmHg VBG HCO3 (23-28) mmol/L VBG Total CO2 (24-29) mmol/L VBG O2 Saturation % VBG Base Excess (-2-3) mmol/L Sodium (136-145) mmol/L 137 Potassium (3.5-5.1) mmol/L 4.2 Chloride (98-107) mmol/L 103 Carbon Dioxide (21.0-32.0) mmol/L 25.6 Anion Gap (3-11) mmol/L 8.4 BUN (7-18) mg/dL 23 H Creatinine (0.70-1.30) mg/dL 1.0 Est GFR (CKD-EPI 2020) (mL/min/1.73m2) 77.52 Glucose (74-106) mg/dL 155 H Calcium (8.5-10.1) mg/dL 8.9 Magnesium (1.8-2.4) mg/dL Total Bilirubin (0.2-1.0) mg/dL 0.4 AST (15-37) U/L 22 ALT (16-63) U/L 22 Alkaline Phosphatase (46-116) U/L 58 Troponin I (<or=60) ng/L Total Protein (6.4-8.2) g/dL 6.6 Albumin (3.4-5.0) g/dL 3.2 L Procalcitonin ng/mL COVID-19 Source Nasal/Nares SARS-CoV-2 (PCR) (Negative) Negative Add-On Test Request Range/Units 08/04/22 08/08/22 08/11/22 05:35 11:53 06:30 WBC (4.4-10.8) 10^3/uL 8.31 9.15 RBC (4.36-5.78) 10^6/uL 4.21 L 4.26 L Hgb (13.5-17.5) g/dL 13.5 13.6 Hct (40.0-50.0) % 39.0 L 39.9 L MCV (80-95) fL 93 94 MCH (27.0-33.0) pg 32.1 31.9 MCHC (32.0-36.0) % 34.6 34.1 RDW (11.8-14.1) % 12.8 12.6 Plt Count (130-400) 10^3/uL 222 238 MPV (8.0-11.0) fL 8.9 8.5 Immature Gran % Neutrophils % Lymphocytes % Monocytes % Eosinophils % Basophils % Nucleated RBC % (0.0-0.3) % Absolute Neutrophils (1.2-6.7) 10^3/uL Absolute Lymphocytes (1.2-3.4) 10^3/uL Absolute Monocytes (0.1-0.8) 10^3/uL Absolute Eosinophils (0.0-0.7) 10^3/uL Absolute Basophils (0.0-0.2) 10^3/uL VBG pH (7.31-7.41) VBG pCO2 (41-51) mmHg VBG pO2 mmHg VBG HCO3 (23-28) mmol/L VBG Total CO2 (24-29) mmol/L VBG O2 Saturation % VBG Base Excess (-2-3) mmol/L Sodium (136-145) mmol/L Cancelled Potassium (3.5-5.1) mmol/L Cancelled Chloride (98-107) mmol/L Cancelled Carbon Dioxide (21.0-32.0) mmol/L Cancelled Anion Gap (3-11) mmol/L Cancelled BUN (7-18) mg/dL Cancelled Creatinine (0.70-1.30) mg/dL Cancelled Est GFR (CKD-EPI 2020) (mL/min/1.73m2) Cancelled Glucose (74-106) mg/dL Cancelled Calcium (8.5-10.1) mg/dL Cancelled Magnesium (1.8-2.4) mg/dL Total Bilirubin (0.2-1.0) mg/dL AST (15-37) U/L ALT (16-63) U/L Alkaline Phosphatase (46-116) U/L Troponin I (<or=60) ng/L Total Protein (6.4-8.2) g/dL Albumin (3.4-5.0) g/dL Procalcitonin ng/mL COVID-19 Source SARS-CoV-2 (PCR) (Negative) Add-On Test Request Range/Units 08/14/22 08/15/22 08/15/22 05:58 13:28 13:28 WBC (4.4-10.8) 10^3/uL 10.42 RBC (4.36-5.78) 10^6/uL 4.15 L Hgb (13.5-17.5) g/dL 13.3 L Hct (40.0-50.0) % 38.5 L MCV (80-95) fL 93 MCH (27.0-33.0) pg 32.0 MCHC (32.0-36.0) % 34.5 RDW (11.8-14.1) % 12.6 Plt Count (130-400) 10^3/uL 230 MPV (8.0-11.0) fL 8.6 Immature Gran % Neutrophils % Lymphocytes % Monocytes % Eosinophils % Basophils % Nucleated RBC % (0.0-0.3) % Absolute Neutrophils (1.2-6.7) 10^3/uL Absolute Lymphocytes (1.2-3.4) 10^3/uL Absolute Monocytes (0.1-0.8) 10^3/uL Absolute Eosinophils (0.0-0.7) 10^3/uL Absolute Basophils (0.0-0.2) 10^3/uL VBG pH (7.31-7.41) VBG pCO2 (41-51) mmHg VBG pO2 mmHg VBG HCO3 (23-28) mmol/L VBG Total CO2 (24-29) mmol/L VBG O2 Saturation % VBG Base Excess (-2-3) mmol/L Sodium (136-145) mmol/L 140 Cancelled Potassium (3.5-5.1) mmol/L 4.4 Cancelled Chloride (98-107) mmol/L 107 Cancelled Carbon Dioxide (21.0-32.0) mmol/L 30.2 Cancelled Anion Gap (3-11) mmol/L 2.8 L Cancelled BUN (7-18) mg/dL 23 H Cancelled Creatinine (0.70-1.30) mg/dL 1.2 Cancelled Est GFR (CKD-EPI 2020) (mL/min/1.73m2) 62.29 Cancelled Glucose (74-106) mg/dL 115 H Cancelled Calcium (8.5-10.1) mg/dL 8.8 Cancelled Magnesium (1.8-2.4) mg/dL Total Bilirubin (0.2-1.0) mg/dL 0.2 Cancelled AST (15-37) U/L 17 Cancelled ALT (16-63) U/L 31 Cancelled Alkaline Phosphatase (46-116) U/L 56 Cancelled Troponin I (<or=60) ng/L < 50 Total Protein (6.4-8.2) g/dL 5.9 L Cancelled Albumin (3.4-5.0) g/dL 2.6 L Cancelled Procalcitonin ng/mL COVID-19 Source SARS-CoV-2 (PCR) (Negative) Add-On Test Request Range/Units 08/15/22 08/17/22 08/17/22 19:01 06:45 18:15 WBC (4.4-10.8) 10^3/uL 13.97 H RBC (4.36-5.78) 10^6/uL 4.33 L Hgb (13.5-17.5) g/dL 13.9 Hct (40.0-50.0) % 40.2 MCV (80-95) fL 93 MCH (27.0-33.0) pg 32.1 MCHC (32.0-36.0) % 34.6 RDW (11.8-14.1) % 12.4 Plt Count (130-400) 10^3/uL 245 MPV (8.0-11.0) fL 8.3 Immature Gran % Neutrophils % Lymphocytes % Monocytes % Eosinophils % Basophils % Nucleated RBC % (0.0-0.3) % Absolute Neutrophils (1.2-6.7) 10^3/uL Absolute Lymphocytes (1.2-3.4) 10^3/uL Absolute Monocytes (0.1-0.8) 10^3/uL Absolute Eosinophils (0.0-0.7) 10^3/uL Absolute Basophils (0.0-0.2) 10^3/uL VBG pH (7.31-7.41) VBG pCO2 (41-51) mmHg VBG pO2 mmHg VBG HCO3 (23-28) mmol/L VBG Total CO2 (24-29) mmol/L VBG O2 Saturation % VBG Base Excess (-2-3) mmol/L Sodium (136-145) mmol/L Potassium (3.5-5.1) mmol/L Chloride (98-107) mmol/L Carbon Dioxide (21.0-32.0) mmol/L Anion Gap (3-11) mmol/L BUN (7-18) mg/dL Creatinine (0.70-1.30) mg/dL Est GFR (CKD-EPI 2020) (mL/min/1.73m2) Glucose (74-106) mg/dL Calcium (8.5-10.1) mg/dL Magnesium (1.8-2.4) mg/dL Total Bilirubin (0.2-1.0) mg/dL AST (15-37) U/L ALT (16-63) U/L Alkaline Phosphatase (46-116) U/L Troponin I (<or=60) ng/L < 50 Total Protein (6.4-8.2) g/dL Albumin (3.4-5.0) g/dL Procalcitonin ng/mL < 0.1 COVID-19 Source SARS-CoV-2 (PCR) (Negative) Add-On Test Request Range/Units 08/17/22 08/18/22 Unknown 05:50 WBC (4.4-10.8) 10^3/uL 10.99 H RBC (4.36-5.78) 10^6/uL 4.21 L Hgb (13.5-17.5) g/dL 13.4 L Hct (40.0-50.0) % 39.1 L MCV (80-95) fL 93 MCH (27.0-33.0) pg 31.8 MCHC (32.0-36.0) % 34.3 RDW (11.8-14.1) % 12.6 Plt Count (130-400) 10^3/uL 224 MPV (8.0-11.0) fL 8.7 Immature Gran % 0.5 Neutrophils % 66.4 Lymphocytes % 12.1 Monocytes % 12.6 Eosinophils % 7.9 Basophils % 0.5 Nucleated RBC % (0.0-0.3) % 0.0 Absolute Neutrophils (1.2-6.7) 10^3/uL 7.30 H Absolute Lymphocytes (1.2-3.4) 10^3/uL 1.33 Absolute Monocytes (0.1-0.8) 10^3/uL 1.38 H Absolute Eosinophils (0.0-0.7) 10^3/uL 0.87 H Absolute Basophils (0.0-0.2) 10^3/uL 0.05 VBG pH (7.31-7.41) VBG pCO2 (41-51) mmHg VBG pO2 mmHg VBG HCO3 (23-28) mmol/L VBG Total CO2 (24-29) mmol/L VBG O2 Saturation % VBG Base Excess (-2-3) mmol/L Sodium (136-145) mmol/L Potassium (3.5-5.1) mmol/L Chloride (98-107) mmol/L Carbon Dioxide (21.0-32.0) mmol/L Anion Gap (3-11) mmol/L BUN (7-18) mg/dL Creatinine (0.70-1.30) mg/dL Est GFR (CKD-EPI 2020) (mL/min/1.73m2) Glucose (74-106) mg/dL Calcium (8.5-10.1) mg/dL Magnesium (1.8-2.4) mg/dL Total Bilirubin (0.2-1.0) mg/dL AST (15-37) U/L ALT (16-63) U/L Alkaline Phosphatase (46-116) U/L Troponin I (<or=60) ng/L Total Protein (6.4-8.2) g/dL Albumin (3.4-5.0) g/dL Procalcitonin ng/mL COVID-19 Source SARS-CoV-2 (PCR) (Negative) Add-On Test Request DONE
[2022-08-19] MEDS: Budesonide/Formoterol 80/4.5 6.9 GM 60 PUFF INH IH (08:06)
[2022-08-19] MEDS: Tiotropium Bromide-Respimat 10 PUFF INH 2 PUFF IH (08:06)
[2022-08-19] MEDS: Nicotine 21 MG/24 HR PATCH TD (09:06)
[2022-08-19] MEDS: Normal Saline Flush 10 ML SYR IVP (09:07)
[2022-08-19] MEDS: buPROPion-CR 150 MG TABCR PO ×2 (09:07→19:57)
[2022-08-19] MEDS: Docusate Sodium 100 MG CAP PO ×2 (09:07→19:57)
[2022-08-19] MEDS: Clotrimazole 1% 15 GM TUBE TP (09:09)
--- NOTE | 2022-08-19 09:38 | DI.RAD_ITS ---
Exam(s) XR PORTABLE CHEST AP EXAM: XR PORTABLE CHEST AP CLINICAL HISTORY: ptx/air leak. TECHNIQUE: 2D digital imaging was performed. COMPARISON: CR XR PORTABLE CHEST AP from 08/10/2022 CR,XR XR CHEST 2V PA LATERAL from 08/13/2022 CR XR PORTABLE CHEST AP from 08/17/2022 CR XR PORTABLE CHEST AP from 08/18/2022 CR XR PORTABLE CHEST AP from 08/18/2022 FINDINGS: Single AP portable view. Heart size is upper normal. The mediastinum is not widened. Bilateral hyperinflation again noted. Position of the left pigtail chest tube is unchanged. Size of the left pneumothorax unchanged from yesterday. Some infiltrate in left lower lobe retrocardiac reg ion again noted. The amount of subcutaneous emphysema on the left side is unchanged. IMPRESSION: Unchanged appearance-size of the left pneumothorax when compared to yesterday. The amount of pleural fluid on the left side has decreased when compared to 08/17/2022. DATA REPOSITORY: RADIATION DOSE DELIVERED:
--- NOTE | 2022-08-19 15:19 | PDOC.CMPRO ---
- If Service Date Differs Date of service: 08/19/22 Time of Service: 15:19 Care Management Progress Note S/O: Dmitry was sitting up in bed when CM met with him. He stated that per MD, he may still transfer to a tertiary facility, if a bed becomes available. Per report, he may be taken back to the OR with more cautious sedation. He will have an MPI prior to returning to the OR. Dmitry is frustrated about being in the hospital for so long, and has expressed concern about paying his bills. He stated that he called his landlord, and that he feels better about things today because he was able to communicate with his landlord. CM will continue to follow. A: Gregorio is a 77 year old male admitted to [facility] on 08/03/22 with pneumothorax. P: Dmitry will have a stress test on Monday, and may return to the OR after, pending results of the MPI. Per MD, transfer remains an alternate plan of care. Once he is medically ready, he will return home. A friend will drive him home via private vehicle, and he will follow up with his discharge plan of care. CM will continue to follow.
--- NOTE | 2022-08-19 16:02 | W.PM.PROGNOT ---
Date of Service Date of service: 08/19/22 Time of Service: 16:02 Assessment and Plan Assessment and plan (1) Persistent air leak: Status: Acute Assessment and plan: After discussion with pulmonology, and consultation with [facility], we will try another round of waterseal on the Pleur-evac. If Gregorio can tolerate it without any shortness of breath, or any hemodynamic compromise, then we will try to work towards a Heimlich valve and discharged home for outpatient follow-up with their expertise and recommendation. If that does not work, then we will plan for a myocardial perfusion study early next week to further delineate his cardiac function, anticipating another trip to the operating room for a second attempt at mechanical pleurodesis. Subjective Subjective Interval history since last seen: Gregorio feels fine today, and remains a bit frustrated about the length of his hospital stay. He denies any shortness of breath today. Exam Resp Effort & Inspection: normal respiratory effort, able to speak in complete sentences and cough Auscultation: wheezes Other: There remains a spontaneous intermittent air leak in the Pleur-evac Objective Last Vital Signs Temp 98.4 F 08/19/22 15:08 Pulse 89 08/19/22 15:08 Resp 17 08/19/22 15:08 BP 120/70 08/19/22 15:08 Pulse Ox 93 08/19/22 15:08 Time Spent with Patient Time Spent with Patient: 35-49 minutes Time was spent: preparing to see the patient(eg.review tests), referring, communicating with other health care technician, counseling the patient and care coordination
[2022-08-19] MEDS: traMADol 50 MG TAB PO (19:57)
[2022-08-20] VITALS (8 sets, daily range): BP systolic 94–111; BP diastolic 57–70; PULSE 66–114; RESP 17–20; TEMP 36–37; O2SAT 92–97
[2022-08-20] MEDS: Nicotine 21 MG/24 HR PATCH TD (07:40)
[2022-08-20] MEDS: Polyethylene Glycol 3350 17 GM PACKET PO (07:41)
[2022-08-20] MEDS: buPROPion-CR 150 MG TABCR PO ×2 (07:41→19:41)
[2022-08-20] MEDS: Clotrimazole 1% 15 GM TUBE TP ×2 (07:41→19:41)
[2022-08-20] MEDS: Docusate Sodium 100 MG CAP PO ×2 (07:41→19:41)
[2022-08-20] MEDS: Tiotropium Bromide-Respimat 10 PUFF INH 2 PUFF IH (07:51)
[2022-08-20] MEDS: Budesonide/Formoterol 80/4.5 6.9 GM 60 PUFF INH IH ×2 (07:51→19:41)
--- NOTE | 2022-08-20 08:04 | DI.VRAD_ITS ---
PROCEDURE INFORMATION: Exam: XR Chest Exam date and time: 08/20/2022 7:09 AM Age: 77 years old Clinical indication: Other: Ptx/air leak TECHNIQUE: Imaging protocol: Radiologic exam of the chest. Views: 1 view. COMPARISON: CR XR PORTABLE CHEST AP 08/19/2022 9:31 AM FINDINGS: Tubes, catheters and devices: A left chest tube is present in stable position. Lungs: Pulmonary emphysema. Mild left basilar atelectasis. Pleural spaces: There is a left pneumothorax which is unchanged. No mediastinal shift. Heart/Mediastinum: Unremarkable. No cardiomegaly. Bones/joints: Unremarkable. Soft tissues: There is subcutaneous emphysema over the left side of the chest. IMPRESSION: Stable left pneumothorax. Dictated and Authenticated by: Matt Keith MD. Ordering:ANH Kendall MD
--- NOTE | 2022-08-20 08:30 | DI.RAD_ITS ---
Exam(s) XR PORTABLE CHEST AP EXAM: XR PORTABLE CHEST AP CLINICAL HISTORY: ptx/air leak. TECHNIQUE: 2D digital imaging was performed. COMPARISON: CR XR PORTABLE CHEST AP from 08/19/2022 also prior chest x-rays. FINDINGS: Single AP portable view. Position of the left pigtail pleural catheter is unchanged. The size of the left pneumothorax is unc hanged from yesterday. Heart size is upper normal. The mediastinum is not widened. Bilateral hyperinflation again noted-COPD change. No new confluent infiltrates. No pulmonary edema. No pleural effusions. IMPRESSION: No significant radiographic change compared to yesterday. The size of the left pneumothorax is uncha nged. DATA REPOSITORY: RADIATION DOSE DELIVERED:
--- NOTE | 2022-08-20 12:05 | W.PM.PROGNOT ---
Date of Service Date of service: 08/20/22 Time of Service: 12:05 Assessment and Plan Assessment and plan (1) Persistent air leak: Status: Acute Assessment and plan: Unfortunately, Reji not able to tolerate underwater seal on the chest tube. I think we have exhausted noninterventional options at this point. We will plan for a stress myocardial perfusion study on Monday, anticipating a return to the operating room for mechanical pleurodesis this upcoming week. We can also revisit consultation with tertiary care centers regarding endobronchial options. Subjective Subjective Interval history since last seen: Unfortunately, Gregorio developed some tachypnea and dyspnea this morning, while resting in bed. He reports that of relatively gradual onset. He describes the sensation as having fullness in his chest that prevented him from taking a deep breath in. His chest tube was returned to -10 suction, and the symptoms immediately resolved. Exam Resp Effort & Inspection: not tachypneic, no tracheal deviation and no use of accessory muscles Auscultation: wheezes Other: The air leak is about the same as before. Objective Last Vital Signs Temp 98.6 F 08/20/22 11:34 Pulse 96 H 08/20/22 11:34 Resp 20 08/20/22 11:34 BP 103/62 08/20/22 11:34 Pulse Ox 97 08/20/22 11:34 Time Spent with Patient Time Spent with Patient: 25-34 minutes Time was spent: counseling the patient and care coordination
[2022-08-21] VITALS (13 sets, daily range): BP systolic 92–108; BP diastolic 58–73; PULSE 78–102; RESP 17–18; TEMP 36–36.8; O2SAT 2–98
[2022-08-21] MEDS: Budesonide/Formoterol 80/4.5 6.9 GM 60 PUFF INH IH ×2 (07:35→20:25)
[2022-08-21] MEDS: Tiotropium Bromide-Respimat 10 PUFF INH 2 PUFF IH (07:35)
[2022-08-21] MEDS: Polyethylene Glycol 3350 17 GM PACKET PO (07:52)
[2022-08-21] MEDS: Nicotine 21 MG/24 HR PATCH TD (07:52)
[2022-08-21] MEDS: Docusate Sodium 100 MG CAP PO ×2 (07:53→20:26)
[2022-08-21] MEDS: Clotrimazole 1% 15 GM TUBE TP ×2 (07:53→20:27)
[2022-08-21] MEDS: buPROPion-CR 150 MG TABCR PO ×2 (07:53→20:26)
--- NOTE | 2022-08-21 08:30 | DI.RAD_ITS ---
Exam(s) XR PORTABLE CHEST AP EXAM: XR PORTABLE CHEST AP CLINICAL HISTORY: ptx/air leak. TECHNIQUE: 2D digital imaging was performed. COMPARISON: CR,XR XR PORTABLE CHEST AP from 08/20/2022 and prior chest x-rays also reviewed FINDINGS: Single AP portable view. Position of the left intrathoracic pigtail catheter is unchanged. The size of the left pneumothorax is unchanged. There are advanced emphysematous COPD changes again noted but no new infiltrates. No pleural effusions. No pulmonary edema. Heart size is upper normal. The mediastinum is not widened. IMPRESSION: Minimal if any significant change compared to yesterday. DATA REPOSITORY: RADIATION DOSE DELIVERED:
--- NOTE | 2022-08-21 10:07 | DI.VRAD_ITS ---
PROCEDURE INFORMATION: Exam: XR Chest Exam date and time: 08/21/2022 9:38 AM Age: 77 years old Clinical indication: Other: Ptx, air leak TECHNIQUE: Imaging protocol: Radiologic exam of the chest. Views: 1 view. COMPARISON: CR XR PORTABLE CHEST AP 08/20/2022 7:09 AM FINDINGS: Subcutaneous air left axilla may be mildly increased Left pigtail catheter grossly stable in position. The left apical pneumothorax appears grossly stable. No mediastinal shift or focal consolidation/pleural effusion. The osseous structures are grossly stable IMPRESSION: Grossly stable left-sided pigtail catheter and pneumothorax. Left-sided subcutaneous emphysema may be mildly increased Dictated and Authenticated by: Jamar Haro MD. Ordering:ANH Kendall MD
--- NOTE | 2022-08-21 11:58 | W.PM.PROGNOT ---
Date of Service Date of service: 08/21/22 Time of Service: 11:58 Assessment and Plan Assessment and plan (1) Subcutaneous emphysema: Status: Acute Assessment and plan: Planning for stress myocardial perfusion test tomorrow to help risk stratify procedural interventions in the coming days. Subjective Subjective Interval history since last seen: Gregorio did fine through the night, and offers no new subjective complaints this morning. He says his breathing feels comfortable. His cough may be slightly improved. Exam Resp Auscultation: wheezes Other: The air leak seems slightly decreased in terms of frequency and volume compared to yesterday. Chest x-ray today shows ongoing pneumothorax and some subcutaneous emphysema. Objective Last Vital Signs Temp 98.2 F 08/21/22 10:55 Pulse 86 08/21/22 10:55 Resp 18 08/21/22 10:55 BP 94/59 L 08/21/22 10:55 Pulse Ox 98 08/21/22 10:55 Time Spent with Patient Time Spent with Patient: <25 minutes Time was spent: preparing to see the patient(eg.review tests) and counseling the patient
[2022-08-22] VITALS (18 sets, daily range): BP systolic 98–118; BP diastolic 59–75; PULSE 79–99; RESP 16–18; TEMP 36.1–36.5; O2SAT 2–98
--- NOTE | 2022-08-22 07:23 | W.PULMPROG ---
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 He was unable to tolerate waterseal yet again over the weekend with development of chest tightness and dyspnea. Once the tube was placed back on suction, his symptoms improved. He will be getting a MPI today to risk stratify for an intervention. He has proven he cannot be discharged with the tube as he cannot tolerate any considerable amount of time off suction. I agree with Dr. 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 If his MPI is normal, it seems reasonable to attempt in house VATS again with a conservative anesthesia approach, as long as Dr. Rasmussen agrees. 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 Once the chest tube was placed on -[id number] his symptoms immediately improved. Note Note: Gregorio is doing well today and verified the documentation from the weekend with regard to symptom development with waterseal trial. Exam Narrative Exam Narrative: Gen:?NAD, normal respiratory effort, well-nourished HENT:?PERRL Chest:?No respiratory distress, normal appearance of chest, clear breath sounds. Chest tube interrogated and functioning appropriately.Air leak tidal breathing Heart:?regular rate and rhythym, no murmurs, rubs or gallops Abdomen:?Non-distended, soft, non tender Extremities:?No clubbing, There is subcutaneous air on left chest that has improved Neuro:?AAOx3 , non focal Psych:?cooperative, appropriate mental affect Objective Last Vital Signs Temp 36.5 C 08/22/22 06:38 Pulse 84 08/22/22 06:38 Resp 17 08/22/22 06:38 BP 101/70 08/22/22 06:38 Pulse Ox 96 08/22/22 06:38 Results Medications Medications: Active Medications Generic Name Dose Route Start Last Admin Trade Name Chunq PRN Reason Stop Dose Admin Aminophylline 0 mg 08/21/22 08:00 Aminophylline 500 Mg/20 Ml Vial IVP 08/22/22 23:59 DIRECTED KYLEE Budesonide/Formoterol Fumarate 2 puff 08/03/22 20:00 08/21/22 20:25 Budesonide/Formoterol 80/4.5 6.9 Gm 60 Puff Inh IH 2 puff BID KYLEE Administration Bupropion HCl 150 mg 08/04/22 08:30 08/21/22 20:26 Bupropion-Cr 150 Mg Tabcr PO 150 mg BID KYLEE Administration Clotrimazole 0 gm 08/13/22 20:00 08/21/22 20:27 Clotrimazole 1% 15 Gm Tube TP 1 applic BID KYLEE Administration Device 1 each 08/03/22 19:00 Inhaler, Assist Device DIRECTED KYLEE Dimethicone/Zinc Oxide 0 gm 08/03/22 18:47 Sharita Protect Cream 142 Gm Tube TP PRN PRN Docusate Sodium 100 mg 08/15/22 20:00 08/21/22 20:26 Docusate Sodium 100 Mg Cap PO 100 mg BID KYLEE Administration Sodium Chloride 500 mls @ 0 mls/hr 08/05/22 10:44 Saline 500ml Bag IV PRN PRN As Directed IV Miscellaneous Supplies 1 each 08/05/22 10:45 Iv Access IV DIRECTED KYLEE Levalbuterol HCl 1.25 mg 08/04/22 19:15 08/06/22 05:29 Levalbuterol 1.25 Mg/3 Ml Upd Vial UPD 1.25 mg Q2H PRN PRN Administration Nicotine 21 mg 08/05/22 08:30 08/21/22 07:52 Nicotine 21 Mg/24 Hr Patch TD 21 mg DAILY KYLEE Administration Polyethylene Glycol 17 gm 08/13/22 15:05 08/21/22 07:52 Polyethylene Glycol 3350 17 Gm Packet PO 17 gm DAILY KYLEE Administration Regadenoson 0.4 mg 08/21/22 08:00 Regadenoson 0.4 Mg/5 Ml Syr IVP 08/22/22 23:59 TODAY KYLEE Sodium Chloride 0 ml 08/05/22 10:44 08/19/22 09:07 Normal Saline Flush 10 Ml Syr IVP 10 ml PRN PRN Administration Tiotropium Ramsay 2 puff 08/05/22 08:30 08/21/22 07:35 Tiotropium Ramsay-Respimat 10 Puff Inh IH 2 inh DAILY KYLEE Administration Tramadol HCl 50 mg 08/06/22 20:53 08/19/22 19:57 Tramadol 50 Mg Tab PO 50 mg Q6H PRN PRN Administration Pain Allergies No Known Allergies Allergy (Unverified 03/29/14 11:30) Labs 08/18/22 05:50 08/15/22 13:28 Labs: Laboratory Tests Range/Units 08/03/22 08/03/22 08/03/22 16:40 16:40 16:40 WBC (4.4-10.8) 10^3/uL 13.51 H RBC (4.36-5.78) 10^6/uL 4.79 Hgb (13.5-17.5) g/dL 15.3 Hct (40.0-50.0) % 43.7 MCV (80-95) fL 91 MCH (27.0-33.0) pg 31.9 MCHC (32.0-36.0) % 35.0 RDW (11.8-14.1) % 12.3 Plt Count (130-400) 10^3/uL 272 MPV (8.0-11.0) fL 8.8 Immature Gran % 0.3 Neutrophils % 91.6 Lymphocytes % 3.8 Monocytes % 4.0 Eosinophils % 0.1 Basophils % 0.2 Nucleated RBC % (0.0-0.3) % 0.0 Absolute Neutrophils (1.2-6.7) 10^3/uL 12.38 H Absolute Lymphocytes (1.2-3.4) 10^3/uL 0.51 L Absolute Monocytes (0.1-0.8) 10^3/uL 0.54 Absolute Eosinophils (0.0-0.7) 10^3/uL 0.01 Absolute Basophils (0.0-0.2) 10^3/uL 0.03 VBG pH (7.31-7.41) 7.28 L VBG pCO2 (41-51) mmHg 54 H VBG pO2 mmHg 41 VBG HCO3 (23-28) mmol/L 25 VBG Total CO2 (24-29) mmol/L 23 L VBG O2 Saturation % 73 VBG Base Excess (-2-3) mmol/L -1 Sodium (136-145) mmol/L 138 Potassium (3.5-5.1) mmol/L 4.3 Chloride (98-107) mmol/L 100 Carbon Dioxide (21.0-32.0) mmol/L 26.8 Anion Gap (3-11) mmol/L 11.2 H BUN (7-18) mg/dL 23 H Creatinine (0.70-1.30) mg/dL 1.3 Est GFR (CKD-EPI 2020) (mL/min/1.73m2) 56.58 Glucose (74-106) mg/dL 169 H Calcium (8.5-10.1) mg/dL 9.4 Magnesium (1.8-2.4) mg/dL 1.9 Total Bilirubin (0.2-1.0) mg/dL 0.7 AST (15-37) U/L 16 ALT (16-63) U/L 22 Alkaline Phosphatase (46-116) U/L 73 Troponin I (<or=60) ng/L < 50 Total Protein (6.4-8.2) g/dL 7.9 Albumin (3.4-5.0) g/dL 4.0 Procalcitonin ng/mL COVID-19 Source SARS-CoV-2 (PCR) (Negative) Add-On Test Request Range/Units 08/03/22 08/04/22 08/04/22 20:11 05:32 05:32 WBC (4.4-10.8) 10^3/uL 7.83 RBC (4.36-5.78) 10^6/uL 4.17 L Hgb (13.5-17.5) g/dL 13.4 L Hct (40.0-50.0) % 38.8 L MCV (80-95) fL 93 MCH (27.0-33.0) pg 32.1 MCHC (32.0-36.0) % 34.5 RDW (11.8-14.1) % 12.5 Plt Count (130-400) 10^3/uL 182 MPV (8.0-11.0) fL 10.0 Immature Gran % 0.3 Neutrophils % 87.0 Lymphocytes % 5.7 Monocytes % 6.9 Eosinophils % 0.0 Basophils % 0.1 Nucleated RBC % (0.0-0.3) % 0.0 Absolute Neutrophils (1.2-6.7) 10^3/uL 6.81 H Absolute Lymphocytes (1.2-3.4) 10^3/uL 0.45 L Absolute Monocytes (0.1-0.8) 10^3/uL 0.54 Absolute Eosinophils (0.0-0.7) 10^3/uL 0.00 Absolute Basophils (0.0-0.2) 10^3/uL 0.01 VBG pH (7.31-7.41) VBG pCO2 (41-51) mmHg VBG pO2 mmHg VBG HCO3 (23-28) mmol/L VBG Total CO2 (24-29) mmol/L VBG O2 Saturation % VBG Base Excess (-2-3) mmol/L Sodium (136-145) mmol/L 137 Potassium (3.5-5.1) mmol/L 4.2 Chloride (98-107) mmol/L 103 Carbon Dioxide (21.0-32.0) mmol/L 25.6 Anion Gap (3-11) mmol/L 8.4 BUN (7-18) mg/dL 23 H Creatinine (0.70-1.30) mg/dL 1.0 Est GFR (CKD-EPI 2020) (mL/min/1.73m2) 77.52 Glucose (74-106) mg/dL 155 H Calcium (8.5-10.1) mg/dL 8.9 Magnesium (1.8-2.4) mg/dL Total Bilirubin (0.2-1.0) mg/dL 0.4 AST (15-37) U/L 22 ALT (16-63) U/L 22 Alkaline Phosphatase (46-116) U/L 58 Troponin I (<or=60) ng/L Total Protein (6.4-8.2) g/dL 6.6 Albumin (3.4-5.0) g/dL 3.2 L Procalcitonin ng/mL COVID-19 Source Nasal/Nares SARS-CoV-2 (PCR) (Negative) Negative Add-On Test Request Range/Units 08/04/22 08/08/22 08/11/22 05:35 11:53 06:30 WBC (4.4-10.8) 10^3/uL 8.31 9.15 RBC (4.36-5.78) 10^6/uL 4.21 L 4.26 L Hgb (13.5-17.5) g/dL 13.5 13.6 Hct (40.0-50.0) % 39.0 L 39.9 L MCV (80-95) fL 93 94 MCH (27.0-33.0) pg 32.1 31.9 MCHC (32.0-36.0) % 34.6 34.1 RDW (11.8-14.1) % 12.8 12.6 Plt Count (130-400) 10^3/uL 222 238 MPV (8.0-11.0) fL 8.9 8.5 Immature Gran % Neutrophils % Lymphocytes % Monocytes % Eosinophils % Basophils % Nucleated RBC % (0.0-0.3) % Absolute Neutrophils (1.2-6.7) 10^3/uL Absolute Lymphocytes (1.2-3.4) 10^3/uL Absolute Monocytes (0.1-0.8) 10^3/uL Absolute Eosinophils (0.0-0.7) 10^3/uL Absolute Basophils (0.0-0.2) 10^3/uL VBG pH (7.31-7.41) VBG pCO2 (41-51) mmHg VBG pO2 mmHg VBG HCO3 (23-28) mmol/L VBG Total CO2 (24-29) mmol/L VBG O2 Saturation % VBG Base Excess (-2-3) mmol/L Sodium (136-145) mmol/L Cancelled Potassium (3.5-5.1) mmol/L Cancelled Chloride (98-107) mmol/L Cancelled Carbon Dioxide (21.0-32.0) mmol/L Cancelled Anion Gap (3-11) mmol/L Cancelled BUN (7-18) mg/dL Cancelled Creatinine (0.70-1.30) mg/dL Cancelled Est GFR (CKD-EPI 2020) (mL/min/1.73m2) Cancelled Glucose (74-106) mg/dL Cancelled Calcium (8.5-10.1) mg/dL Cancelled Magnesium (1.8-2.4) mg/dL Total Bilirubin (0.2-1.0) mg/dL AST (15-37) U/L ALT (16-63) U/L Alkaline Phosphatase (46-116) U/L Troponin I (<or=60) ng/L Total Protein (6.4-8.2) g/dL Albumin (3.4-5.0) g/dL Procalcitonin ng/mL COVID-19 Source SARS-CoV-2 (PCR) (Negative) Add-On Test Request Range/Units 08/14/22 08/15/22 08/15/22 05:58 13:28 13:28 WBC (4.4-10.8) 10^3/uL 10.42 RBC (4.36-5.78) 10^6/uL 4.15 L Hgb (13.5-17.5) g/dL 13.3 L Hct (40.0-50.0) % 38.5 L MCV (80-95) fL 93 MCH (27.0-33.0) pg 32.0 MCHC (32.0-36.0) % 34.5 RDW (11.8-14.1) % 12.6 Plt Count (130-400) 10^3/uL 230 MPV (8.0-11.0) fL 8.6 Immature Gran % Neutrophils % Lymphocytes % Monocytes % Eosinophils % Basophils % Nucleated RBC % (0.0-0.3) % Absolute Neutrophils (1.2-6.7) 10^3/uL Absolute Lymphocytes (1.2-3.4) 10^3/uL Absolute Monocytes (0.1-0.8) 10^3/uL Absolute Eosinophils (0.0-0.7) 10^3/uL Absolute Basophils (0.0-0.2) 10^3/uL VBG pH (7.31-7.41) VBG pCO2 (41-51) mmHg VBG pO2 mmHg VBG HCO3 (23-28) mmol/L VBG Total CO2 (24-29) mmol/L VBG O2 Saturation % VBG Base Excess (-2-3) mmol/L Sodium (136-145) mmol/L 140 Cancelled Potassium (3.5-5.1) mmol/L 4.4 Cancelled Chloride (98-107) mmol/L 107 Cancelled Carbon Dioxide (21.0-32.0) mmol/L 30.2 Cancelled Anion Gap (3-11) mmol/L 2.8 L Cancelled BUN (7-18) mg/dL 23 H Cancelled Creatinine (0.70-1.30) mg/dL 1.2 Cancelled Est GFR (CKD-EPI 2020) (mL/min/1.73m2) 62.29 Cancelled Glucose (74-106) mg/dL 115 H Cancelled Calcium (8.5-10.1) mg/dL 8.8 Cancelled Magnesium (1.8-2.4) mg/dL Total Bilirubin (0.2-1.0) mg/dL 0.2 Cancelled AST (15-37) U/L 17 Cancelled ALT (16-63) U/L 31 Cancelled Alkaline Phosphatase (46-116) U/L 56 Cancelled Troponin I (<or=60) ng/L < 50 Total Protein (6.4-8.2) g/dL 5.9 L Cancelled Albumin (3.4-5.0) g/dL 2.6 L Cancelled Procalcitonin ng/mL COVID-19 Source SARS-CoV-2 (PCR) (Negative) Add-On Test Request Range/Units 08/15/22 08/17/22 08/17/22 19:01 06:45 18:15 WBC (4.4-10.8) 10^3/uL 13.97 H RBC (4.36-5.78) 10^6/uL 4.33 L Hgb (13.5-17.5) g/dL 13.9 Hct (40.0-50.0) % 40.2 MCV (80-95) fL 93 MCH (27.0-33.0) pg 32.1 MCHC (32.0-36.0) % 34.6 RDW (11.8-14.1) % 12.4 Plt Count (130-400) 10^3/uL 245 MPV (8.0-11.0) fL 8.3 Immature Gran % Neutrophils % Lymphocytes % Monocytes % Eosinophils % Basophils % Nucleated RBC % (0.0-0.3) % Absolute Neutrophils (1.2-6.7) 10^3/uL Absolute Lymphocytes (1.2-3.4) 10^3/uL Absolute Monocytes (0.1-0.8) 10^3/uL Absolute Eosinophils (0.0-0.7) 10^3/uL Absolute Basophils (0.0-0.2) 10^3/uL VBG pH (7.31-7.41) VBG pCO2 (41-51) mmHg VBG pO2 mmHg VBG HCO3 (23-28) mmol/L VBG Total CO2 (24-29) mmol/L VBG O2 Saturation % VBG Base Excess (-2-3) mmol/L Sodium (136-145) mmol/L Potassium (3.5-5.1) mmol/L Chloride (98-107) mmol/L Carbon Dioxide (21.0-32.0) mmol/L Anion Gap (3-11) mmol/L BUN (7-18) mg/dL Creatinine (0.70-1.30) mg/dL Est GFR (CKD-EPI 2020) (mL/min/1.73m2) Glucose (74-106) mg/dL Calcium (8.5-10.1) mg/dL Magnesium (1.8-2.4) mg/dL Total Bilirubin (0.2-1.0) mg/dL AST (15-37) U/L ALT (16-63) U/L Alkaline Phosphatase (46-116) U/L Troponin I (<or=60) ng/L < 50 Total Protein (6.4-8.2) g/dL Albumin (3.4-5.0) g/dL Procalcitonin ng/mL < 0.1 COVID-19 Source SARS-CoV-2 (PCR) (Negative) Add-On Test Request Range/Units 08/17/22 08/18/22 Unknown 05:50 WBC (4.4-10.8) 10^3/uL 10.99 H RBC (4.36-5.78) 10^6/uL 4.21 L Hgb (13.5-17.5) g/dL 13.4 L Hct (40.0-50.0) % 39.1 L MCV (80-95) fL 93 MCH (27.0-33.0) pg 31.8 MCHC (32.0-36.0) % 34.3 RDW (11.8-14.1) % 12.6 Plt Count (130-400) 10^3/uL 224 MPV (8.0-11.0) fL 8.7 Immature Gran % 0.5 Neutrophils % 66.4 Lymphocytes % 12.1 Monocytes % 12.6 Eosinophils % 7.9 Basophils % 0.5 Nucleated RBC % (0.0-0.3) % 0.0 Absolute Neutrophils (1.2-6.7) 10^3/uL 7.30 H Absolute Lymphocytes (1.2-3.4) 10^3/uL 1.33 Absolute Monocytes (0.1-0.8) 10^3/uL 1.38 H Absolute Eosinophils (0.0-0.7) 10^3/uL 0.87 H Absolute Basophils (0.0-0.2) 10^3/uL 0.05 VBG pH (7.31-7.41) VBG pCO2 (41-51) mmHg VBG pO2 mmHg VBG HCO3 (23-28) mmol/L VBG Total CO2 (24-29) mmol/L VBG O2 Saturation % VBG Base Excess (-2-3) mmol/L Sodium (136-145) mmol/L Potassium (3.5-5.1) mmol/L Chloride (98-107) mmol/L Carbon Dioxide (21.0-32.0) mmol/L Anion Gap (3-11) mmol/L BUN (7-18) mg/dL Creatinine (0.70-1.30) mg/dL Est GFR (CKD-EPI 2020) (mL/min/1.73m2) Glucose (74-106) mg/dL Calcium (8.5-10.1) mg/dL Magnesium (1.8-2.4) mg/dL Total Bilirubin (0.2-1.0) mg/dL AST (15-37) U/L ALT (16-63) U/L Alkaline Phosphatase (46-116) U/L Troponin I (<or=60) ng/L Total Protein (6.4-8.2) g/dL Albumin (3.4-5.0) g/dL Procalcitonin ng/mL COVID-19 Source SARS-CoV-2 (PCR) (Negative) Add-On Test Request DONE
[2022-08-22] MEDS: Clotrimazole 1% 15 GM TUBE TP ×2 (08:00→19:56)
[2022-08-22] MEDS: Budesonide/Formoterol 80/4.5 6.9 GM 60 PUFF INH IH ×2 (08:15→19:56)
--- NOTE | 2022-08-22 08:39 | DI.RAD_ITS ---
Exam(s) XR PORTABLE CHEST AP EXAM: XR PORTABLE CHEST AP CLINICAL HISTORY: ptx/air leak TECHNIQUE: 2D digital imaging was performed. COMPARISON: CR,XR XR PORTABLE CHEST AP from 08/21/2022 FINDINGS: Left-sided chest tube is unchanged in position. There has been no change in size of the left apical pneumothorax. No new findings. DATA REPOSITORY: RADIATION DOSE DELIVERED:
[2022-08-22] MEDS: Docusate Sodium 100 MG CAP PO ×2 (10:03→19:56)
[2022-08-22] MEDS: buPROPion-CR 150 MG TABCR PO ×2 (10:03→19:56)
[2022-08-22] MEDS: Nicotine 21 MG/24 HR PATCH TD (10:03)
[2022-08-22] MEDS: Normal Saline Flush 10 ML SYR IVP (10:04)
--- NOTE | 2022-08-22 12:00 | DI.NM_ITS ---
APPROVED REPORT Exam: Pharmacologic Patient Location: In-Patient Room/Bed: 210 Stress Nurse: Ramonita Mari RN Ordering Provider:LAVON ABDI, Contact Number: [phone] BMI: 19.37 Baseline Rhythm: Sinus Rhythm Indications: ST changes and hypotension anesthesia induction Medical History Medical History: Tobacco abuse disorder, COPD, spontaneous pneumothorax Cardiac Medications: Albuterol, trelegy, wellbutrin Allergies: No known allergies Cardiac Risk Factors: Smoker, COPD, asthma, Previous Cardiac Procedures: None Pretest Chest Pain Characteristics: None Exercise History: Sedentary Physical Disabilities: Left sided chest tube Lung Sounds: Clear to auscultation Heart Sounds: Regular Stress Test Details Test: Pharmacologic stress testing performed using 0.4 mg of regadenoson per 5 mL given IV over 10 s econds. Nuclear Acquisition: Rest Tc-99m/Stress Tc-99m 1 day Rest Isotope: Tc-99m Sestamibi. Dose: 10.0 Date: 08/22/2022 Injection Time: 1045 Stress Isotope: Tc-99m Sestamibi. Dose: 30.0 Date: 08/22/2022 Injection Time: 13:30 HR Resting HR Supine: 82 bpm Max Heart Rate (APMHR): 143.171962 bpm Target HR (85% APMHR): 121.265663 bpm Max HR Achieved: 111 bpm % of APMHR: 77.62 Recovery HR: 99 bpm BP Resting BP Supine: 112/64 mmHg ECG Resting ECG: Sinus Rhythm Ectopy: None Stress ECG: Sinus Tachycardia ST Change: Nondiagnostic low heart rate Arrhythmia: None Recovery ECG: Sinus Rhythm Recovery ST Change: Nondiagnostic resting ST abnormalities, Nondiagnostic low heart rate Recovery Arrhythmia: None Clinical Stress Symptoms: Dyspnea Angina Score: None Rate Pressure Product: 0 Stress ECG Conclusion 1. Resting electrocardiogram was within normal limits 2. Patient underwent pharmacologic stress testing with regadenoson 3. Peak heart rate achieved was 78% of predicted for age 4. The electrocardiographic portion of the test was nondiagnostic 5. See MPI report Stress Test Summary STAGE HR BP SpO2 Symptoms NOTES Supine 82 112/64 93 1 min post Lexiscan injection 84 110/66 90 Mod dyspnea 3 min post Lexiscan injection 106 92/52 93 Dyspnea resolving 6 min post Lexiscan injection 99 104/52 93 Dyspnea resolved ECG leads 5,6 and left lower leg unable to be placed in correct anatomical position due to large left sided chest tube dressing. Dr. Garcia aware and ok to proceed with test. MPI Conclusion Myocardial perfusion is normal. There is no evidence of ischemia or prior infarction Ejection fraction is 67% with normal wall motion Radiologist Interpretation Radiologist agrees with Laboratory Miller's Interpretation. Radiologist Interpretation by: Franny Lopes MD Interpretation Date/Time: 08/22/2022 17:09:28
--- NOTE | 2022-08-22 12:34 | PGE_ITS ---
Date of Service Date of service: 08/22/22 Time of Service: 12:10 Assessment and Plan Assessment and plan (1) Persistent air leak: Status: Acute Assessment and plan: Gregorio is stable. Unfortunately we have not been able to get his lung to stop leaking. We have tried multiple times to get him transferred to [facility] or [facility] without success. They recommended chemical pleurodesis which we did and this unfortunately did not work. Both [facility] and [facility] recommended trialing him off suction and if he was stable sending him home with a chest tube and having him follow-up as an outpatient. We again attempted that a second time over the weekend and he became symptomatic when his lung collapsed after 12 hours of being off suction. He is having a nuclear stress test today. Hopefully if the stress test if it is negative today we will be able to take him back to surgery on Monday and do a mechanical pleurodesis. If anesthesia is not comfortable taking him to the OR here then we will have to again try to push [facility] or [facility] to take him or look further away from us for example [place] or [place]. (2) Ruptured emphysematous bleb of lung: Status: Acute Subjective Subjective Interval history since last seen: Gregorio is doing okay. He is frustrated which I can understand. He was trialed off of suction and unfortunately his lung dropped and he became symptomatic after 12 hours. He had to be placed back on suction. He had a chemical pleurodesis done last week which unfortunately did not work. He is scheduled for a nuclear stress test today. He is otherwise just hungry because he has been n.p.o. CXR is stable Exam Const General: cooperative, comfortable and no acute distress Nutritional Appearance: thin Orientation: alert and oriented x3 [facility] Head: normocephalic and atraumatic Resp Effort & Inspection: normal respiratory effort Auscultation: clear to auscultation bilaterally Other: Chest tube in good position Cardio Rate: regular rate Rhythm: regular rhythm Heart Sounds: no gallops, no murmurs and no rubs Objective Last Vital Signs Temp 97.3 F L 08/22/22 11:10 Pulse 95 H 08/22/22 11:10 Resp 16 08/22/22 11:10 BP 113/75 08/22/22 11:10 Pulse Ox 95 08/22/22 11:10 Time Spent with Patient Time Spent with Patient: <25 minutes Time was spent: preparing to see the patient(eg.review tests), indepentently interpreting results and counseling the patient
[2022-08-22] MEDS: Regadenoson 0.4 MG/5 ML SYR IVP (13:41)
--- NOTE | 2022-08-22 16:35 | PDOC.CMPRO ---
Date of service: 08/22/22 Time of Service: 16:35 Care Management Progress Note Progress Note Text Progress Note Text: S/O: Dmitry was not in his room when CM attempted to meet with him. Per report, he was having a stress test today, which will determine the next step of his plan. Per provider, if his MPI is negative, they will discuss going back to the OR, if anesthesia agrees. If not, the provider will attempt transfer again. CM will continue to follow. A: Gregorio is a 77 year old male admitted to [facility] on 08/03/22 with pneumothorax. P: Dmitry will have a stress test on Monday, and may return to the OR after, pending results of the MPI. Per MD, transfer remains an alternate plan of care. Once he is medically ready, he will return home. A friend will drive him home via private vehicle, and he will follow up with his discharge plan of care. CM will continue to follow.
[2022-08-23] VITALS (25 sets, daily range): BP systolic 98–118; BP diastolic 58–70; PULSE 81–103; RESP 14–20; TEMP 36.1–37.2; O2SAT 89–96
[2022-08-23] MEDS: Nicotine 21 MG/24 HR PATCH TD (08:15)
[2022-08-23] MEDS: Docusate Sodium 100 MG CAP PO ×2 (08:16→20:37)
[2022-08-23] MEDS: buPROPion-CR 150 MG TABCR PO ×2 (08:16→20:37)
[2022-08-23] MEDS: Polyethylene Glycol 3350 17 GM PACKET PO (08:19)
[2022-08-23] MEDS: Budesonide/Formoterol 80/4.5 6.9 GM 60 PUFF INH IH ×2 (08:24→20:43)
--- NOTE | 2022-08-23 08:35 | DI.RAD_ITS ---
Exam(s) XR PORTABLE CHEST AP EXAM: XR PORTABLE CHEST AP CLINICAL HISTORY: ptx/air leak. TECHNIQUE: 2D digital imaging was performed. COMPARISON: CR XR PORTABLE CHEST AP from 08/22/2022. Also numerous other prior chest x-rays reviewe d. FINDINGS: Single AP portable view. Position left chest tube is unchanged. Left-sided pneumothorax remains unchanged. Small amount left pleural fluid noted, similar to yesterday. These findings are superimposed severe COPD. However, there are no new infiltrates in either lung fi eld. Heart size normal mediastinum is not widened. IMPRESSION: Persistent left pneumothorax similar in size to yesterday. Chest tube unchanged in position. DATA REPOSITORY: RADIATION DOSE DELIVERED:
[2022-08-23] MEDS: Tiotropium Bromide-Respimat 10 PUFF INH 2 PUFF IH (08:38)
[2022-08-23] MEDS: Clotrimazole 1% 15 GM TUBE TP ×2 (10:11→20:38)
--- NOTE | 2022-08-23 11:22 | PDOC.CMPRO ---
Date of service: 08/23/22 Time of Service: 11:22 Care Management Progress Note Progress Note Text Progress Note Text: S/O: Dmitry had a stress test yesterday, and per report, this was negative. He will likely go to the OR tomorrow, if anesthesia agrees to the procedure. He was moved to the ICU this afternoon, in anticipation of his post surgical care. CM will continue to follow. A: Gregorio is a 77 year old male admitted to [facility] on 08/03/22 with pneumothorax. P: Dmitry will have a stress test on Monday, and may return to the OR after, pending results of the MPI. Per MD, transfer remains an alternate plan of care. Once he is medically ready, he will return home. A friend will drive him home via private vehicle, and he will follow up with his discharge plan of care. CM will continue to follow.
--- NOTE | 2022-08-23 16:07 | W.PM.PROGNOT ---
Date of Service Date of service: 08/23/22 Time of Service: 16:07 Assessment and Plan Assessment and plan (1) Perioperative hypertension: Status: Acute (2) Subcutaneous emphysema: Status: Acute Assessment and plan: attempt VATS in am for continued air leak/PTX -supporitive care (3) Persistent air leak: Status: Acute (4) Ruptured emphysematous bleb of lung: Status: Acute (5) Discharge planning issues: Status: Acute (6) Tobacco abuse disorder: Status: Acute (7) COPD (chronic obstructive pulmonary disease): Status: Chronic (8) Pneumothorax: Status: Acute Subjective Subjective Interval history since last seen: Pt is doing well. no headaches. No CP or SOB. no productive cough. no dysuria. no leg pain or swelling. PT continues to have an air leak/PTX CXR- no infiltrate. persistent PTX MPI: MPI Conclusion Myocardial perfusion is normal.? There is no evidence of ischemia or prior infarction Ejection fraction is 67% with normal wall motion Exam Const General: cooperative, healthy appearing, comfortable and no acute distress Orientation: alert, awake and oriented x3 Other: L- CTA b/l. + air leak. serous output from CXR H- NSR. see MPI Abdom- non-tender LE- no redness or swelling Objective Last Vital Signs Temp 36.7 C 08/23/22 15:25 Pulse 88 08/23/22 15:25 Resp 17 08/23/22 15:25 BP 104/70 08/23/22 15:25 Pulse Ox 95 08/23/22 15:25 Time Spent with Patient Time Spent with Patient: 35-49 minutes Time was spent: preparing to see the patient(eg.review tests), obtaining and/or reviewing separately otained hiistory, ordering medications,tests, procedures, referring, communicating with other health home day care provider, indepentently interpreting results, counseling the patient and care coordination
[2022-08-23] MEDS: Normal Saline Flush 10 ML SYR IVP (20:37)
[2022-08-24] VITALS (89 sets, daily range): BP systolic 90–133; BP diastolic 40–63; PULSE 70–109; RESP 12–27; TEMP 36.3–37.2; O2SAT 82–100; BMI 18.6
--- NOTE | 2022-08-24 | DI.RAD_ITS ---
Exam(s) XR PORTABLE CHEST AP EXAM: XR PORTABLE CHEST AP CLINICAL HISTORY: s/p left vats with pleuradesis TECHNIQUE: 2D digital imaging was performed. COMPARISON: CR XR PORTABLE CHEST AP from 08/23/2022 FINDINGS: The previously noted pigtail catheter has been removed. A chest tube has been inserted which extends near the left lung apex. Has been improvement in the size of the pneumothorax however a small apica l pneumothorax remains present, proximally 10 millimeters from the lung apex. LUNGS: Severe emphysematous changes. No infiltrate. HEART: Normal size. AORTA: Normal diameter. BONES: Unremarkable for age. Soft tissues: Unremarkable. IMPRESSION: Improvement in size of left pneumothorax status post chest tube placement. DATA REPOSITORY: RADIATION DOSE DELIVERED:
[2022-08-24] MEDS: Lactated Ringers 1,000 ML 75 ML IV ×2 (00:22→11:20)
[2022-08-24] MEDS: ceFAZolin 2 GM/50 ML BAG IVPB (06:37)
[2022-08-24] MEDS: Gabapentin 300 MG CAP 600 MG PO (07:24)
[2022-08-24] MEDS: Tiotropium Bromide-Respimat 10 PUFF INH 2 PUFF IH (07:55)
[2022-08-24] MEDS: Budesonide/Formoterol 80/4.5 6.9 GM 60 PUFF INH IH ×2 (07:57→20:09)
--- NOTE | 2022-08-24 08:20 | ANES.PREOP_ITS ---
General Info Date of Service Date Performed: 08/24/22 Height: 6 ft 7 in Weight: 75.3 kg Body Mass Index (BMI): 18.6 Surgical Procedure: Operation Date: 08/15/22 11:55 Proposed Procedure Side Surgeon p Thoracoscopy Left Savannah Chen MD Actual Procedure Side Surgeon p Thoracoscopy Left Leland Rasmussen MD Pre-Op Diagnosis Post-Op Diagnosis Pneumothorax Pneumothorax Operation Date: 08/24/22 10:25 Proposed Procedure Side Surgeon p VATS Leland Rasmussen MD Meds Allergies and Home Medications Allergies Allergy/AdvReac Type Severity Reaction Status Date / Time No Known Allergies Allergy Unverified 03/29/14 11:30 Home Medication Medication Instructions Recorded albuterol sulfate 90 mcg/actuation 2 puff inhalation Q4H PRN PRN 03/29/14 aerosol inhaler fluticasone fur. 100 mcg-umeclid 1 inh inhalation QDAY 08/03/22 62.5 mcg-vilant 25 mcg inhalat.powder (Trelegy Ellipta) Current Visit Medications: Current Medications Generic Name Dose Route Start Last Admin Trade Name Freq PRN Reason Stop Dose Admin Budesonide/Formoterol Fumarate 2 puff 08/03/22 20:00 08/24/22 07:57 Budesonide/Formoterol 80/4.5 6.9 Gm 60 Puff Inh IH 2 puff BID KYLEE Administration Bupropion HCl 150 mg 08/04/22 08:30 08/23/22 20:37 Bupropion-Cr 150 Mg Tabcr PO 150 mg BID KYLEE Administration Clotrimazole 0 gm 08/13/22 20:00 08/23/22 20:38 Clotrimazole 1% 15 Gm Tube TP 1 applic BID KYLEE Administration Device 1 each 08/03/22 19:00 Inhaler, Assist Device DIRECTED KYLEE Dimethicone/Zinc Oxide 0 gm 08/03/22 18:47 Sharita Protect Cream 142 Gm Tube TP PRN PRN Docusate Sodium 100 mg 08/15/22 20:00 08/23/22 20:37 Docusate Sodium 100 Mg Cap PO 100 mg BID KYLEE Administration Sodium Chloride 500 mls @ 0 mls/hr 08/05/22 10:44 Saline 500ml Bag IV PRN PRN As Directed Ringer's Solution 1,000 mls @ 75 mls/hr 08/23/22 16:30 08/24/22 00:22 IV 75 mls/hr INFUSION KYLEE Administration IV Miscellaneous Supplies 1 each 08/05/22 10:45 Iv Access IV DIRECTED KYLEE Levalbuterol HCl 1.25 mg 08/04/22 19:15 08/06/22 05:29 Levalbuterol 1.25 Mg/3 Ml Upd Vial UPD 1.25 mg Q2H PRN PRN Administration Nicotine 21 mg 08/05/22 08:30 08/23/22 08:15 Nicotine 21 Mg/24 Hr Patch TD 21 mg DAILY KYLEE Administration Polyethylene Glycol 17 gm 08/13/22 15:05 08/23/22 08:19 Polyethylene Glycol 3350 17 Gm Packet PO 17 gm DAILY KYLEE Administration Sodium Chloride 0 ml 08/05/22 10:44 08/23/22 20:37 Normal Saline Flush 10 Ml Syr IVP 20 ml PRN PRN Administration Tiotropium [place] 2 puff 08/05/22 08:30 08/24/22 07:55 Tiotropium [place]-Respimat 10 Puff Inh IH 2 inh DAILY KYLEE Administration Tramadol HCl 50 mg 08/06/22 20:53 08/19/22 19:57 Tramadol 50 Mg Tab PO 50 mg Q6H PRN PRN Administration Pain PFSH Active Problems Active Problems: Problem Status Onset Code Perioperative hypertension I97.88, I10 Subcutaneous emphysema T79.7XXA Persistent air leak 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 Discharge planning issues Z02.9 Tobacco abuse disorder Z72.0 COPD (chronic obstructive pulmonary disease) J44.9 Pneumothorax J93.9 Tobacco Smoking/Tobacco Use Status: Current every day Tobacco Type: cigarettes Smoking cigarettes per day: 20 Alcohol Alcohol Intake: former Substance Use Substance use: Never Substance use type: does not use Vital Signs and Lab Results Vital Signs Most Recent Vital Signs in EMR: Most Recent Vital Signs Temp Pulse Resp BP Pulse Ox 36.9 C 85 18 92/63 L 94 08/24/22 07:45 08/24/22 08:00 08/24/22 08:00 08/24/22 08:00 08/24/22 08:00 Lab Results 08/18/22 05:50 08/15/22 13:28 Blood Type / Crossmatch: No Data to Display Complete Blood Count: White Blood Count 10.99 10^3/uL (4.4-10.8) H 08/18/22 05:50 Red Blood Count 4.21 10^6/uL (4.36-5.78) L 08/18/22 05:50 Hemoglobin 13.4 g/dL (13.5-17.5) L 08/18/22 05:50 Hematocrit 39.1 % (40.0-50.0) L 08/18/22 05:50 Platelet Count 224 10^3/uL (130-400) 08/18/22 05:50 Complete Metabolic Panel: Sodium 140 mmol/L (136-145) 08/15/22 13:28 Potassium 4.4 mmol/L (3.5-5.1) 08/15/22 13:28 Chloride 107 mmol/L (98-107) 08/15/22 13:28 Carbon Dioxide 30.2 mmol/L (21.0-32.0) 08/15/22 13:28 BUN 23 mg/dL (7-18) H 08/15/22 13:28 Creatinine 1.2 mg/dL (0.70-1.30) 08/15/22 13:28 Est GFR (CKD-EPI 2020) 62.29 (mL/min/1.73m2) 08/15/22 13:28 Magnesium 1.9 mg/dL (1.8-2.4) 08/03/22 16:40 Calcium 8.8 mg/dL (8.5-10.1) 08/15/22 13:28 Albumin 2.6 g/dL (3.4-5.0) L 08/15/22 13:28 Glucose 115 mg/dL (74-106) H 08/15/22 13:28 Liver Function Panel: Alanine Aminotransferase (ALT/SGPT) 31 U/L (16-63) 08/15/22 13: 28 Aspartate Amino Transf (AST/SGOT) 17 U/L (15-37) 08/15/22 13:28 Coagulation Panel: No Data to Display Cardiac Panel: Troponin I < 50 ng/L (<or=60) 08/15/22 Arterial Blood Gas: No Data to Display Venous Blood Gas: Venous Blood pH 7.28 (7.31-7.41) L 08/03/22 16:40 Venous Blood Partial Pressure O2 41 mmHg 08/03/22 16:40 Venous Blood Partial Pressure CO2 54 mmHg (41-51) H 08/03/22 16 :40 Venous Blood Oxygen Saturation 73 % 08/03/22 16:40 Venous Blood HCO3 25 mmol/L (23-28) 08/03/22 16:40 Venous Blood Base Excess -1 mmol/L (-2-3) 08/03/22 16:40 Venous Blood Total Carbon Dioxide 23 mmol/L (24-29) L 08/03/22 16:40 Pancreas Panel: No Data to Display Thyroid Panel: No Data to Display Infectious Disease: Coronavirus (COVID-19)(PCR) Negative (Negative) 08/03/22 20:11 Coronavirus 2019 Source Nasal/Nares 08/03/22 20:11 Blood Cultures: No Data to Display Toxicology Panel: No Data to Display Imaging and Studies Imaging and Studies Study information below may be from another EMR and interpreted by another provider. Please see original notes in EMR for more complete details. EKG Summary: PATIENT NAME: Gregorio Galeana #: [id number] ORDERING PROVIDER: Alex Patterson M.D. PRIMARY CARE PROVIDER:KATIE CRISTINA DATE/TIME OF SERVICE: 08/03/22 1620 : 1945PERFORMING LOCATION: ICU APPROVED REPORT Exam: Resting ECG Reason for Exam: SOB Patient Location: E HR:129 bpm ECG Measurements Heart Rate 129 AXIS WA 130 P 69 QRSd 88 QRS 92 QT 331 T47 QTc 486 Conclusion Sinus tachycardia...rate> 99 Right axis deviation...QRS axis ( 68,849) <Electronically signed by ALEX PATTERSON MD in OV> E-Sign Date: 08/03/22 E-Sign Time: 1750 ADDENDUM APPROVED REPORT Exam: Resting ECG Reason for Exam: SOB Patient Location: E HR:129 bpm ECG Measurements Heart Rate 129 AXIS WA 130 P 69 QRSd 88 QRS 92 QT 331 T47 QTc 486 Conclusion Sinus tachycardia...rate> 99 Right axis deviation...QRS axis ( 91,269) I have reviewed and I agree with the emergency room physician's ECG interpretation. Electronically signed by: <Electronically signed by Amanda Garcia M.D. in OV> 08/04/22 0837 Cosigned by: Echocardiogram Summary: Patient Name: Gregorio Galeana #: [id number]: MS Ordering Provider: Savannah Chen M.D. : ADM IN Primary Care Provider: Porter Cristina of Exam: 08/09/22Sex: M Admission Date: 08/03/22 : 1945 Age: 77 APPROVED REPORT EXAM: Comprehensive 2D, Doppler, and color-flow Echocardiogram Patient Location: In-Patient Room/Bed: [address] Pump Assembler: Natty Fernandez RDCS (AE) Indications: PTX, may need VATS, SOB, Smoker, COPD Other Information Study Quality: Technically Limited. Technically limited study due to body habitus, inability to position patient, post operative dressings. Conclusion Limited study Left ventricular chamber size wall thickness and systolic function appear within the range of normal Right ventricular function appears normal Both atria appear normal in size Study is not adequate to confirm or exclude any significant valvular disease Wall motion Left Ventricle Very limited imaging. Patient has a bandaged chest. The overall left ventricular systolic function appears normal. There is no ventricular septal defect vis ualized. Atria The interatrial septum is intact with no evidence for an atrial septal defect. Great Vessels IVC is normal in size and collapses >50% with inspiration. Pericardium There is no pericardial effusion. Ordered By: Savannah Chen M.D. CC: Dictated By: Amanda Garcia M.D. 08/09/22 1153 <Electronically signed by Amanda Garcia M.D. in OV> 08/09/22 1200 Transcribed By: Amanda Garcia MD This is privileged, confidential information intended only for the provider named. Any use or distribution by any person other than this provider is strictly prohibited. If you receive this report in error, please notify us immediately at [phone] and return the original report to us at the address above. Thank-you. Anesthesia Assessment and Plan Anesthesia History Personal History: No History of Anesthesia Complications Family History: No Family History of Anesthesia Complications Exercise Tolerance Exercise Tolerance: Metabolic Equivalents>4 Pertinent Negatives Pertinent Negatives: No Symptoms of GERD and No History of CVA/TIA Cardiac & Pulmonary Exam Cardiac Exam: Normal S1/S2 Heart Sounds Pulmonary Exam: Clear Bilateral Breath Sounds Implantable Cardiac Device Does patient have a Pacemaker or an ICD?: No Airway Exam Known Difficult Airway: No Mallampati Class: 3 Mouth Opening: Normal (> 3cm) Thyromental Distance: Greater than 3 cm Neck Range of Motion: Full ROM Neck Circumference: Normal Teeth Condition: Generalized Poor Dentition (3 broken teeth upper right, no other teeth present) ASA Classification ASA Score: ASA 3 Emergency Case?: No NPO Status NPO Status: NPO Clears >2 hours, Solids >8 hours Anesthesia Plan Resuscitation Status: Full Code Anesthesia Technique: General Anesthesia Airway Planned: Double Lumen Endotracheal Tube Monitors Used: Standard Monitors, Arterial Line and SedLine
--- NOTE | 2022-08-24 10:22 | CMPROGNOTE_ITS ---
Date of service: 08/24/22 Time of Service: 10:22 Care Management Progress Note Progress Note Text Progress Note Text: S/O: Dmitry was sitting up in bed when CM met with him. He went to the OR today for his VATS procedure, and per MD, he tolerated the procedure well. Dmitry stated that he has a little pain, but it is manageable, and he is hoping that the procedure worked so he can return home soon. CM will continue to follow. A: Gregorio is a 77 year old male admitted to [facility] on 08/03/22 with pneumothorax. P: Dmitry will have a stress test on Monday, and may return to the OR after, pending results of the MPI. Per MD, transfer remains an alternate plan of care. Once he is medically ready, he will return home. A friend will drive him home via private vehicle, and he will follow up with his discharge plan of care. CM will continue to follow.
[2022-08-24] MEDS: Bupivacaine LIPOSOME/PF 133 MG/10 ML VIAL IJ (10:58)
--- NOTE | 2022-08-24 11:42 | W.PM.OP ---
Date of service: 08/24/22 Time of Service: 11:42 Operative Note Operative Note DATE OF PROCEDURE: 08/16/22 PRE-OP DIAGNOSIS: Persistent pneumothorax POST-OP DIAGNOSIS: same PROCEDURE: Left-sided video-assisted thorascopic surgery with mechanical pleurodesis SURGEON: Leland Rasmussen ASSISTING SURGEON: Savannah Chen ANESTHESIA TYPE: Local By Surgeon, General LMA/ETT and Other (Intercostal blocks) Refer to Anesthesia Record ESTIMATED BLOOD LOSS: 50 PATHOLOGY: none sent COMPLICATIONS: None Patient was transported to: PACU Patient's condition: stable Indications: Gregorio is a 77-year-old male with emphysema. He presented to the hospital with a left-sided pneumothorax. He was treated with tube thoracostomy, and had persistent air leak since the insertion of the tube. He has been trialed with underwater seal several times, but continues to have increased pneumothorax, air leak, and dyspnea. Procedure Description: After the induction of general endotracheal anesthesia, who position was confirmed with bronchoscopy. A left-sided dual-lumen endotracheal tube was inserted into the left mainstem bronchus. Patient was then moved into the right lateral decubitus position. Great care was taken to pad all of his points of contact. An axillary roll was used to protect the right chest wall and axilla. Genitalia was checked. Next, I prepped and draped the left chest wall in the usual fashion. I removed the previously placed left-sided tube thoracostomy prior to prepping the chest wall. Next, I made a small incision in the left posterior axillary line, just anterior to the tip of the left scapula. Dissection was carried down over the rib, and the pleural space was entered directly. 5 mm port site was used to secure the trajectory. A 5 mm 30 degree scope was then inserted. The lung was completely deflated. There was a small amount of adhesion in the left lateral sidewall, and the area of his previous tube thoracostomy, and in the area of his chemical pleurodesis. Next, a 10 mm port was placed in the left mid axillary line under the direct vision of the scope. Finally, the area of his previous tube thoracostomy was gently excised, and a 5 mm port was established here as well. Despite the emphysema seen on his CAT scan, the visceral pleura of the left lung was fairly normal. There was minimal obvious bullous disease. There was no obvious source of air leak. The lung was gently retracted within the chest wall. The apex was normal-appearing, descending thoracic aorta was visualized and appeared normal. The lower segments of the left lung were in normal anatomic position, and the inferior pulmonary ligament was also normal. Small amount of adhesions in the previously mentioned area were gently divided in order to gain appropriate exposure. Next, a scratch pad from Bovie device was gently inserted into the pleural space, and using laparoscopic graspers, mechanical pleurodesis was performed. We started at the apex, and continued along the posterior aspect of the left chest wall. Pleurodesis was continued from the medial aspect, out to the lateral sidewall. The pleurodesis was extended all the way down to the inferior pulmonary ligament. Next, we turned our attention to the anterior aspects. The camera was moved, and new scratch pads were used to ensure appropriate disruption of the parietal pleura. Again, mechanical pleurodesis was continued all along the left anterior chest wall bringing it out to the lateral aspects meeting up with the pleurodesis that was conducted from the posterior approach. Once this was completed, the lung was gently retracted anteriorly. Under the direct vision of the laparoscope, intercostal nerve blocks were performed from approximately the third intercostal space down to approximately the 10th intercostal space. Once this was completed, the 10 mm port was removed, and a straight 28 [place] chest tube was delivered up towards the apex along the anterior aspect of the lung. Similarly, the posterior incision was gently enlarged, and another 28 [place] chest tube delivered along the posterior aspect. The camera and last port were removed, and the anteriormost port site was completely excised back to healthy bleeding tissue prior to closure with subcuticular stitches. Chest tubes were attached with suture, and bandages were applied. Both chest tubes were attached to atrial underwater seal suction device is set at -20 cm of water. Patient was then rolled back onto his hospital bed next bed without difficulty.
--- NOTE | 2022-08-24 12:27 | W.ANESPOSTOP ---
Postoperative Evaluation Date, Time and Location Date Performed: 08/24/22 Time Performed: 12:27 Patient Location: Day Surgery Unit Vital Signs Most Recent Imported Vital Signs: Most Recent Vital Signs Temp Pulse Resp BP Pulse Ox 36.5 C 75 18 123/49 L 97 08/24/22 12:20 08/24/22 12:20 08/24/22 12:20 08/24/22 12:20 08/24/22 12:20 Most Recent Vital Signs Temp Pulse Resp BP Pulse Ox 35.7 C L 89 18 124/69 90 L 08/15/22 14:40 08/15/22 14:34 08/15/22 14:40 08/15/22 14:40 08/15/22 14:40 Pain Score Most Recent Pain Score: Most Recent Pain Score Pain Level [Left upper chest] 1 08/23/22 08:24 Pain Level [Left Chest] 2 08/18/22 08:07 Pain Level 3 08/24/22 12:20 Assessment Mental Status: Arousable with meaningful communication Airway and Respiratory Function: Patent airway with normal (patient baseline) respiratory exam Cardiovascular Function: Hemodynamically Stable Hydration Status: Adequately Hydrated Nausea & Vomiting: No Nausea or Vomiting Pain: Pt. Denies Any Pain Peripheral Nerve Block: Other (Exparel by surgeon still in place. )
[2022-08-24] MEDS: traMADol 50 MG TAB PO ×2 (15:25→21:25)
--- NOTE | 2022-08-24 18:03 | W.PM.PROGNOT ---
Date of Service Date of service: 08/24/22 Time of Service: 18:04 Assessment and Plan Assessment and plan (1) Pneumothorax: Status: Acute Assessment and plan: His chest x-ray after pleurodesis shows improved aeration of the left lung, with only a small amount of apical pneumothorax. I think we should continue with the tubes on suction overnight to try to maximize inflation of the lung and adhesion of the visceral and parietal pleura. Subjective Subjective Interval history since last seen: Gregorio underwent left-sided VATS with mechanical pleurodesis today. He tolerated the procedure well. He says he has a little bit of discomfort in the left chest today, mostly when he moves his left upper extremity. He says his breathing feels more comfortable. He says he has less shortness of breath and cough. Exam Resp Auscultation: clear to auscultation bilaterally (Maybe a mild wheeze) Other: There is an intermittent air leak in the more basilar and posterior chest tube. The apical tube titles with no air leak Objective Last Vital Signs Temp 97.9 F 08/24/22 14:00 Pulse 77 08/24/22 14:00 Resp 21 08/24/22 16:40 BP 113/56 L 08/24/22 14:00 Pulse Ox 93 08/24/22 16:40 Time Spent with Patient Time Spent with Patient: 25-34 minutes Time was spent: preparing to see the patient(eg.review tests), obtaining and/or reviewing separately otained hiistory, indepentently interpreting results and counseling the patient
[2022-08-24] MEDS: Nicotine 21 MG/24 HR PATCH TD (18:45)
[2022-08-24] MEDS: buPROPion-CR 150 MG TABCR PO (20:08)
[2022-08-24] MEDS: Docusate Sodium 100 MG CAP PO (20:08)
[2022-08-24] MEDS: Clotrimazole 1% 15 GM TUBE TP (20:09)
[2022-08-24] MEDS: Normal Saline Flush 10 ML SYR IVP (20:17)
[2022-08-25] VITALS (32 sets, daily range): BP systolic 97–125; BP diastolic 49–69; PULSE 77–99; RESP 14–27; TEMP 36.6–37; O2SAT 89–97
[2022-08-25] MEDS: traMADol 50 MG TAB PO (05:48)
[2022-08-25] MEDS: Tiotropium Bromide-Respimat 10 PUFF INH 2 PUFF IH (07:46)
[2022-08-25] MEDS: Budesonide/Formoterol 80/4.5 6.9 GM 60 PUFF INH IH ×2 (07:46→20:06)
--- NOTE | 2022-08-25 08:14 | W.PULMPROG ---
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 He did well during the procedure and his PNX does seem to be improved on CXR this morning. He is in the ICU with an arterial line. He does not need the art line anymore given his vital sign stability and he likely can graduate fro the ICU today. He parker shave significant pain and may need more aggressive pain management. He is being managed by surgery and so I will sign off, but please free free to reach out if there are further questions/concerns. 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 His vital signs are stable and is doing well, however is complaining of pain this morning. CXR from this morning does show improvement of PNX. Exam Narrative Exam Narrative: Gen:?NAD, normal respiratory effort, well-nourished HENT:?PERRL Chest:?No respiratory distress, normal appearance of chest, clear breath sounds. Air leak tidal breathing of posterior tube. Heart:?regular rate and rhythym, no murmurs, rubs or gallops Abdomen:?Non-distended, soft, non tender Extremities:?No clubbing, There is subcutaneous air on left chest that has improved Neuro:?AAOx3 , non focal Psych:?cooperative, appropriate mental affect Objective Last Vital Signs Temp 37.0 C 08/25/22 07:30 Pulse 78 08/25/22 07:30 Resp 20 08/25/22 07:00 BP 123/50 L 08/25/22 04:18 Pulse Ox 95 08/25/22 07:00 Results Medications Medications: Active Medications Generic Name Dose Route Start Last Admin Trade Name Freq PRN Reason Stop Dose Admin Budesonide/Formoterol Fumarate 2 puff 08/03/22 20:00 08/25/22 07:46 Budesonide/Formoterol 80/4.5 6.9 Gm 60 Puff Inh IH 2 puff BID KYLEE Administration Bupropion HCl 150 mg 08/04/22 08:30 08/24/22 20:08 Bupropion-Cr 150 Mg Tabcr PO 150 mg BID KYLEE Administration Clotrimazole 0 gm 08/13/22 20:00 08/24/22 20:09 Clotrimazole 1% 15 Gm Tube TP 1 applic BID KYLEE Administration Device 1 each 08/03/22 19:00 Inhaler, Assist Device DIRECTED [facility] Dimethicone/Zinc Oxide 0 gm 08/03/22 18:47 Sharita Protect Cream 142 Gm Tube TP PRN PRN Docusate Sodium 100 mg 08/15/22 20:00 08/24/22 20:08 Docusate Sodium 100 Mg Cap PO 100 mg BID KYLEE Administration Sodium Chloride 500 mls @ 0 mls/hr 08/05/22 10:44 Saline 500ml Bag IV PRN PRN As Directed IV Miscellaneous Supplies 1 each 08/05/22 10:45 Iv Access IV DIRECTED [facility] Levalbuterol HCl 1.25 mg 08/04/22 19:15 08/06/22 05:29 Levalbuterol 1.25 Mg/3 Ml Upd Vial UPD 1.25 mg Q2H PRN PRN Administration Nicotine 21 mg 08/05/22 08:30 08/24/22 18:45 Nicotine 21 Mg/24 Hr Patch TD 21 mg DAILY KYLEE Administration Polyethylene Glycol 17 gm 08/13/22 15:05 08/24/22 15:41 Polyethylene Glycol 3350 17 Gm Packet PO Not Given DAILY KYLEE Sodium Chloride 0 ml 08/05/22 10:44 08/24/22 20:17 Normal Saline Flush 10 Ml Syr IVP 10 ml PRN PRN Administration Tiotropium [place] 2 puff 08/05/22 08:30 08/25/22 07:46 Tiotropium [place]-Respimat 10 Puff Inh IH 2 inh DAILY KYLEE Administration Tramadol HCl 50 mg 08/06/22 20:53 08/25/22 05:48 Tramadol 50 Mg Tab PO 50 mg Q6H PRN PRN Administration Pain Allergies No Known Allergies Allergy (Unverified 03/29/14 11:30) Labs 08/18/22 05:50 08/15/22 13:28 Labs: Laboratory Tests Range/Units 08/03/22 08/03/22 08/03/22 16:40 16:40 16:40 WBC (4.4-10.8) 10^3/uL 13.51 H RBC (4.36-5.78) 10^6/uL 4.79 Hgb (13.5-17.5) g/dL 15.3 Hct (40.0-50.0) % 43.7 MCV (80-95) fL 91 MCH (27.0-33.0) pg 31.9 MCHC (32.0-36.0) % 35.0 RDW (11.8-14.1) % 12.3 Plt Count (130-400) 10^3/uL 272 MPV (8.0-11.0) fL 8.8 Immature Gran % 0.3 Neutrophils % 91.6 Lymphocytes % 3.8 Monocytes % 4.0 Eosinophils % 0.1 Basophils % 0.2 Nucleated RBC % (0.0-0.3) % 0.0 Absolute Neutrophils (1.2-6.7) 10^3/uL 12.38 H Absolute Lymphocytes (1.2-3.4) 10^3/uL 0.51 L Absolute Monocytes (0.1-0.8) 10^3/uL 0.54 Absolute Eosinophils (0.0-0.7) 10^3/uL 0.01 Absolute Basophils (0.0-0.2) 10^3/uL 0.03 VBG pH (7.31-7.41) 7.28 L VBG pCO2 (41-51) mmHg 54 H VBG pO2 mmHg 41 VBG HCO3 (23-28) mmol/L 25 VBG Total CO2 (24-29) mmol/L 23 L VBG O2 Saturation % 73 VBG Base Excess (-2-3) mmol/L -1 Sodium (136-145) mmol/L 138 Potassium (3.5-5.1) mmol/L 4.3 Chloride (98-107) mmol/L 100 Carbon Dioxide (21.0-32.0) mmol/L 26.8 Anion Gap (3-11) mmol/L 11.2 H BUN (7-18) mg/dL 23 H Creatinine (0.70-1.30) mg/dL 1.3 Est GFR (CKD-EPI 2020) (mL/min/1.73m2) 56.58 Glucose (74-106) mg/dL 169 H Calcium (8.5-10.1) mg/dL 9.4 Magnesium (1.8-2.4) mg/dL 1.9 Total Bilirubin (0.2-1.0) mg/dL 0.7 AST (15-37) U/L 16 ALT (16-63) U/L 22 Alkaline Phosphatase (46-116) U/L 73 Troponin I (<or=60) ng/L < 50 Total Protein (6.4-8.2) g/dL 7.9 Albumin (3.4-5.0) g/dL 4.0 Procalcitonin ng/mL COVID-19 Source SARS-CoV-2 (PCR) (Negative) Add-On Test Request Range/Units 08/03/22 08/04/22 08/04/22 20:11 05:32 05:32 WBC (4.4-10.8) 10^3/uL 7.83 RBC (4.36-5.78) 10^6/uL 4.17 L Hgb (13.5-17.5) g/dL 13.4 L Hct (40.0-50.0) % 38.8 L MCV (80-95) fL 93 MCH (27.0-33.0) pg 32.1 MCHC (32.0-36.0) % 34.5 RDW (11.8-14.1) % 12.5 Plt Count (130-400) 10^3/uL 182 MPV (8.0-11.0) fL 10.0 Immature Gran % 0.3 Neutrophils % 87.0 Lymphocytes % 5.7 Monocytes % 6.9 Eosinophils % 0.0 Basophils % 0.1 Nucleated RBC % (0.0-0.3) % 0.0 Absolute Neutrophils (1.2-6.7) 10^3/uL 6.81 H Absolute Lymphocytes (1.2-3.4) 10^3/uL 0.45 L Absolute Monocytes (0.1-0.8) 10^3/uL 0.54 Absolute Eosinophils (0.0-0.7) 10^3/uL 0.00 Absolute Basophils (0.0-0.2) 10^3/uL 0.01 VBG pH (7.31-7.41) VBG pCO2 (41-51) mmHg VBG pO2 mmHg VBG HCO3 (23-28) mmol/L VBG Total CO2 (24-29) mmol/L VBG O2 Saturation % VBG Base Excess (-2-3) mmol/L Sodium (136-145) mmol/L 137 Potassium (3.5-5.1) mmol/L 4.2 Chloride (98-107) mmol/L 103 Carbon Dioxide (21.0-32.0) mmol/L 25.6 Anion Gap (3-11) mmol/L 8.4 BUN (7-18) mg/dL 23 H Creatinine (0.70-1.30) mg/dL 1.0 Est GFR (CKD-EPI 2020) (mL/min/1.73m2) 77.52 Glucose (74-106) mg/dL 155 H Calcium (8.5-10.1) mg/dL 8.9 Magnesium (1.8-2.4) mg/dL Total Bilirubin (0.2-1.0) mg/dL 0.4 AST (15-37) U/L 22 ALT (16-63) U/L 22 Alkaline Phosphatase (46-116) U/L 58 Troponin I (<or=60) ng/L Total Protein (6.4-8.2) g/dL 6.6 Albumin (3.4-5.0) g/dL 3.2 L Procalcitonin ng/mL COVID-19 Source Nasal/Nares SARS-CoV-2 (PCR) (Negative) Negative Add-On Test Request Range/Units 08/04/22 08/08/22 08/11/22 05:35 11:53 06:30 WBC (4.4-10.8) 10^3/uL 8.31 9.15 RBC (4.36-5.78) 10^6/uL 4.21 L 4.26 L Hgb (13.5-17.5) g/dL 13.5 13.6 Hct (40.0-50.0) % 39.0 L 39.9 L MCV (80-95) fL 93 94 MCH (27.0-33.0) pg 32.1 31.9 MCHC (32.0-36.0) % 34.6 34.1 RDW (11.8-14.1) % 12.8 12.6 Plt Count (130-400) 10^3/uL 222 238 MPV (8.0-11.0) fL 8.9 8.5 Immature Gran % Neutrophils % Lymphocytes % Monocytes % Eosinophils % Basophils % Nucleated RBC % (0.0-0.3) % Absolute Neutrophils (1.2-6.7) 10^3/uL Absolute Lymphocytes (1.2-3.4) 10^3/uL Absolute Monocytes (0.1-0.8) 10^3/uL Absolute Eosinophils (0.0-0.7) 10^3/uL Absolute Basophils (0.0-0.2) 10^3/uL VBG pH (7.31-7.41) VBG pCO2 (41-51) mmHg VBG pO2 mmHg VBG HCO3 (23-28) mmol/L VBG Total CO2 (24-29) mmol/L VBG O2 Saturation % VBG Base Excess (-2-3) mmol/L Sodium (136-145) mmol/L Cancelled Potassium (3.5-5.1) mmol/L Cancelled Chloride (98-107) mmol/L Cancelled Carbon Dioxide (21.0-32.0) mmol/L Cancelled Anion Gap (3-11) mmol/L Cancelled BUN (7-18) mg/dL Cancelled Creatinine (0.70-1.30) mg/dL Cancelled Est GFR (CKD-EPI 2020) (mL/min/1.73m2) Cancelled Glucose (74-106) mg/dL Cancelled Calcium (8.5-10.1) mg/dL Cancelled Magnesium (1.8-2.4) mg/dL Total Bilirubin (0.2-1.0) mg/dL AST (15-37) U/L ALT (16-63) U/L Alkaline Phosphatase (46-116) U/L Troponin I (<or=60) ng/L Total Protein (6.4-8.2) g/dL Albumin (3.4-5.0) g/dL Procalcitonin ng/mL COVID-19 Source SARS-CoV-2 (PCR) (Negative) Add-On Test Request Range/Units 08/14/22 08/15/22 08/15/22 05:58 13:28 13:28 WBC (4.4-10.8) 10^3/uL 10.42 RBC (4.36-5.78) 10^6/uL 4.15 L Hgb (13.5-17.5) g/dL 13.3 L Hct (40.0-50.0) % 38.5 L MCV (80-95) fL 93 MCH (27.0-33.0) pg 32.0 MCHC (32.0-36.0) % 34.5 RDW (11.8-14.1) % 12.6 Plt Count (130-400) 10^3/uL 230 MPV (8.0-11.0) fL 8.6 Immature Gran % Neutrophils % Lymphocytes % Monocytes % Eosinophils % Basophils % Nucleated RBC % (0.0-0.3) % Absolute Neutrophils (1.2-6.7) 10^3/uL Absolute Lymphocytes (1.2-3.4) 10^3/uL Absolute Monocytes (0.1-0.8) 10^3/uL Absolute Eosinophils (0.0-0.7) 10^3/uL Absolute Basophils (0.0-0.2) 10^3/uL VBG pH (7.31-7.41) VBG pCO2 (41-51) mmHg VBG pO2 mmHg VBG HCO3 (23-28) mmol/L VBG Total CO2 (24-29) mmol/L VBG O2 Saturation % VBG Base Excess (-2-3) mmol/L Sodium (136-145) mmol/L 140 Cancelled Potassium (3.5-5.1) mmol/L 4.4 Cancelled Chloride (98-107) mmol/L 107 Cancelled Carbon Dioxide (21.0-32.0) mmol/L 30.2 Cancelled Anion Gap (3-11) mmol/L 2.8 L Cancelled BUN (7-18) mg/dL 23 H Cancelled Creatinine (0.70-1.30) mg/dL 1.2 Cancelled Est GFR (CKD-EPI 2020) (mL/min/1.73m2) 62.29 Cancelled Glucose (74-106) mg/dL 115 H Cancelled Calcium (8.5-10.1) mg/dL 8.8 Cancelled Magnesium (1.8-2.4) mg/dL Total Bilirubin (0.2-1.0) mg/dL 0.2 Cancelled AST (15-37) U/L 17 Cancelled ALT (16-63) U/L 31 Cancelled Alkaline Phosphatase (46-116) U/L 56 Cancelled Troponin I (<or=60) ng/L < 50 Total Protein (6.4-8.2) g/dL 5.9 L Cancelled Albumin (3.4-5.0) g/dL 2.6 L Cancelled Procalcitonin ng/mL COVID-19 Source SARS-CoV-2 (PCR) (Negative) Add-On Test Request Range/Units 08/15/22 08/17/22 08/17/22 19:01 06:45 18:15 WBC (4.4-10.8) 10^3/uL 13.97 H RBC (4.36-5.78) 10^6/uL 4.33 L Hgb (13.5-17.5) g/dL 13.9 Hct (40.0-50.0) % 40.2 MCV (80-95) fL 93 MCH (27.0-33.0) pg 32.1 MCHC (32.0-36.0) % 34.6 RDW (11.8-14.1) % 12.4 Plt Count (130-400) 10^3/uL 245 MPV (8.0-11.0) fL 8.3 Immature Gran % Neutrophils % Lymphocytes % Monocytes % Eosinophils % Basophils % Nucleated RBC % (0.0-0.3) % Absolute Neutrophils (1.2-6.7) 10^3/uL Absolute Lymphocytes (1.2-3.4) 10^3/uL Absolute Monocytes (0.1-0.8) 10^3/uL Absolute Eosinophils (0.0-0.7) 10^3/uL Absolute Basophils (0.0-0.2) 10^3/uL VBG pH (7.31-7.41) VBG pCO2 (41-51) mmHg VBG pO2 mmHg VBG HCO3 (23-28) mmol/L VBG Total CO2 (24-29) mmol/L VBG O2 Saturation % VBG Base Excess (-2-3) mmol/L Sodium (136-145) mmol/L Potassium (3.5-5.1) mmol/L Chloride (98-107) mmol/L Carbon Dioxide (21.0-32.0) mmol/L Anion Gap (3-11) mmol/L BUN (7-18) mg/dL Creatinine (0.70-1.30) mg/dL Est GFR (CKD-EPI 2020) (mL/min/1.73m2) Glucose (74-106) mg/dL Calcium (8.5-10.1) mg/dL Magnesium (1.8-2.4) mg/dL Total Bilirubin (0.2-1.0) mg/dL AST (15-37) U/L ALT (16-63) U/L Alkaline Phosphatase (46-116) U/L Troponin I (<or=60) ng/L < 50 Total Protein (6.4-8.2) g/dL Albumin (3.4-5.0) g/dL Procalcitonin ng/mL < 0.1 COVID-19 Source SARS-CoV-2 (PCR) (Negative) Add-On Test Request Range/Units 08/17/22 08/18/22 Unknown 05:50 WBC (4.4-10.8) 10^3/uL 10.99 H RBC (4.36-5.78) 10^6/uL 4.21 L Hgb (13.5-17.5) g/dL 13.4 L Hct (40.0-50.0) % 39.1 L MCV (80-95) fL 93 MCH (27.0-33.0) pg 31.8 MCHC (32.0-36.0) % 34.3 RDW (11.8-14.1) % 12.6 Plt Count (130-400) 10^3/uL 224 MPV (8.0-11.0) fL 8.7 Immature Gran % 0.5 Neutrophils % 66.4 Lymphocytes % 12.1 Monocytes % 12.6 Eosinophils % 7.9 Basophils % 0.5 Nucleated RBC % (0.0-0.3) % 0.0 Absolute Neutrophils (1.2-6.7) 10^3/uL 7.30 H Absolute Lymphocytes (1.2-3.4) 10^3/uL 1.33 Absolute Monocytes (0.1-0.8) 10^3/uL 1.38 H Absolute Eosinophils (0.0-0.7) 10^3/uL 0.87 H Absolute Basophils (0.0-0.2) 10^3/uL 0.05 VBG pH (7.31-7.41) VBG pCO2 (41-51) mmHg VBG pO2 mmHg VBG HCO3 (23-28) mmol/L VBG Total CO2 (24-29) mmol/L VBG O2 Saturation % VBG Base Excess (-2-3) mmol/L Sodium (136-145) mmol/L Potassium (3.5-5.1) mmol/L Chloride (98-107) mmol/L Carbon Dioxide (21.0-32.0) mmol/L Anion Gap (3-11) mmol/L BUN (7-18) mg/dL Creatinine (0.70-1.30) mg/dL Est GFR (CKD-EPI 2020) (mL/min/1.73m2) Glucose (74-106) mg/dL Calcium (8.5-10.1) mg/dL Magnesium (1.8-2.4) mg/dL Total Bilirubin (0.2-1.0) mg/dL AST (15-37) U/L ALT (16-63) U/L Alkaline Phosphatase (46-116) U/L Troponin I (<or=60) ng/L Total Protein (6.4-8.2) g/dL Albumin (3.4-5.0) g/dL Procalcitonin ng/mL COVID-19 Source SARS-CoV-2 (PCR) (Negative) Add-On Test Request DONE
[2022-08-25] MEDS: Docusate Sodium 100 MG CAP PO ×2 (08:19→20:44)
[2022-08-25] MEDS: Normal Saline Flush 10 ML SYR IVP (08:19)
[2022-08-25] MEDS: Nicotine 21 MG/24 HR PATCH TD (08:19)
[2022-08-25] MEDS: buPROPion-CR 150 MG TABCR PO ×2 (08:19→20:44)
[2022-08-25] MEDS: Polyethylene Glycol 3350 17 GM PACKET PO (08:20)
[2022-08-25] MEDS: Clotrimazole 1% 15 GM TUBE TP ×2 (08:20→20:45)
[2022-08-25 08:44] LABS: HCT 38.6 % (40.0-50.0); HGB 13.2 g/dL (13.5-17.5); MCH 31.4 pg (27.0-33.0); MCHC 34.2 % (32.0-36.0); MCV 92 fL (80-95); MPV 8.8 fL (8.0-11.0); Platelet Count 283 10^3/uL (130-400); RDW 12.5 % (11.8-14.1); WBC 13.32 10^3/uL (4.4-10.8)
[2022-08-25] MEDS: Ketorolac 30 MG/ML VIAL IVP (09:50)
--- NOTE | 2022-08-25 09:50 | W.PM.PROGNOT ---
Date of Service Date of service: 08/25/22 Time of Service: 09:50 Assessment and Plan Assessment and plan (1) Surgical aftercare, respiratory system: Status: Acute Assessment and plan: POD #2 s/p VATS- left and mechanical pleurodecisis. CT labeled posterior and MID. Both have air leaks today. Posterior worse than Mid. on -10mmhg suction slt apical PTX <5% vont pulm toilet and supportive care d/c A line and change to med surg. status pulm note appreciated (2) Pneumothorax: Status: Acute (3) COPD (chronic obstructive pulmonary disease): Status: Chronic (4) Ruptured emphysematous bleb of lung: Status: Acute (5) Persistent air leak: Status: Acute Subjective Subjective Interval history since last seen: Pt is doing well. no headaches. No CP or SOB. He has some greenish blood tinged sputum. no dysuria. no leg pain or swelling. He c/o pain at C. tube site. min sero-sang output from CT. + leak from both tubes. Exam Narrative Exam Narrative: PHYSICAL EXAM GENERAL APPEARANCE: Alert, healthy appearance, oriented, x 3,? in no acute distress HYDRATION: Well hydrated HEAD, EYES, EARS, NECK, THROAT: Head is normocephalic, pupils equal, round, reactive to light and accommodation, ocular movement intact, sclera clear and no jaundice. ? edentualous No sore throat.? No jaw pain. No thrush LUNGS: normal respiration/normal chest excursion. ?Clear to auscultation bilaterally. ?No wheeze. ?HEART: Regular rate and rhythm. no murmurs EXTREMITY: No edema or cyanosis.? no leg pain, redness, swelling.? ABDOMEN: soft and non-tender to palpation.? Normal bowel sounds.? No hernias.? Objective Last Vital Signs Temp 37.0 C 08/25/22 07:30 Pulse 78 08/25/22 07:30 Resp 23 08/25/22 09:30 BP 123/50 L 08/25/22 04:18 Pulse Ox 94 08/25/22 09:30 Laboratory Results - last 24 hr 08/25/22 05:30 WBC 13.32 H RBC 4.20 L Hgb 13.2 L Hct 38.6 L MCV 92 MCH 31.4 MCHC 34.2 RDW 12.5 Plt Count 283 MPV 8.8 Time Spent with Patient Time Spent with Patient: 25-34 minutes Time was spent: preparing to see the patient(eg.review tests), obtaining and/or reviewing separately otained hiistory, ordering medications,tests, procedures, referring, communicating with other health healthcare interpreter, indepentently interpreting results, counseling the patient and care coordination
[2022-08-25] MEDS: oxyCODONE 5 MG TAB PO ×2 (09:51→20:45)
[2022-08-25] MEDS: Acetaminophen 325 MG TAB 650 MG PO ×2 (09:51→20:43)
--- NOTE | 2022-08-25 16:44 | IN_ITS ---
Date of service: 08/25/22 Time of Service: 14:20 PT Notes Visit Reasons: Pneumothorax Physical Therapy Inpatient Initial Evaluation Date: 08/25/2022 Referring Doctor: Faiza Carroll MD PT Orders: PT CONSULT: pt has x2 CT and cannot come off suction Precautions: Fall. Standard. Activity as tolerated. Per Dr. Carroll, patient's chest tubes need to be connected to patient at all times, all PT activities need to be bed level, bedside, or seated on chair. Patient Profile/Admitting Diagnosis: Dmitry is a 77-year-old male patient S/P VATS L and mechanical pleurodesis on postoperative day 2, pneumothorax, COPD, ruptured emphysematous bleb of lung, and persistent air leak referred to PT for extended stay weakness. PMHX: All Active Problems?(Updated 08/03/22 @ 20:20 by Guru Cosby MD) Discharge planning issues (Acute) Tobacco abuse disorder (Acute) COPD (chronic obstructive pulmonary disease) (Chronic) Pneumothorax (Acute) Social History/Home Situation: Lives alone in an apartment. Independent with all aspects of ADLs prior to admission. Rides [employer] for all his errands. Equipment Owned/DME: None Subjective: Agreeable to getting out of bed and doing chair level exercises. Objective: General Observation: Supine in bed. Chest tubes x [address] Telemetry monitoring in place. Mental Status: Alert and oriented as to person, place, time, and purpose. Able to pay attention, focus, and respond appropriately. Pain: None reported Vital Signs: Clolsely monitored via telemetry ROM: Right Upper Extremity: Shoulder Flexion WFL. Shoulder abduction WFL. Elbow flexion WFL. Wrist flexion WFL. Functional opening and closing of hand WFL. Left Upper Extremity: Shoulder Flexion WFL. Shoulder abduction WFL. Elbow flexion WFL. Wrist flexion WFL. Functional opening and closing of hand WFL. Right Lower Extremity: Hip flexion WFL. Hip abduction WFL. Knee flexion WFL. Ankle dorsiflexion WFL. Ankle plantarflexion WFL. Left Lower Extremity: Hip flexion WFL. Hip abduction WFL. Knee flexion WFL. Ankle dorsiflexion WFL. Ankle plantarflexion WFL. Strength: Right Upper Extremity: Shoulder flexors 4-/5. Shoulder abductors 4-/5. Elbow flexors 4-/5. Elbow extensors 4-/5. Special Education Aide strong. Left Upper Extremity: Shoulder flexors 4-/5. Shoulder abductors 4-/5. Elbow flexors 4-/5. Elbow extensors 4-/5. Special Education Aide strong. Right Lower Extremity: Hip flexors 4-/5. Hip abductors 4-/5. Knee flexors 4-/5. Knee extensors 4-/5. Ankle dorsiflexors 4-/5. Ankle plantarflexors 4-/5. Left Lower Extremity: Hip flexors 4-/5. Hip abductors 4-/5. Knee flexors 4-/5. Knee extensors 4-/5. Ankle dorsiflexors 4-/5. Ankle plantarflexors 4-/5. Bed Mobility/Transfers: Supine to sit stand by assist Sit to stand contact guard assist Stand to sit contact guard assist Bed to bedside commode contact guard assist with FWW Bedside commode to bed contact guard assist with FWW Bed to reclining chair with contact guard assist using FWW Gait: Instructed patient with level surface ambulation of 3-5 steps requiring contact guard assist using FWW to transfer from bedside to bedside chair. Nurse Carolyn ensured that chest tubes were safe prior to transfer. Balance: Static Sitting: Good Dynamic Sitting: Fair Static Standing: Fair Dynamic Standing: Duncan Special Tests: Mobility Limitations Standardized Measure [facility] AM-PAC 6 clicks Basic Mobility Inpatient Short Form: Raw Score: 20 CMS Score: 36% deficit THERA EX: Instructed patient on safe and correct performance of exercisesmaking sure that chest tubes insertion sites are not compromised: Seated marches x 10 Chest expansion exercises with B shoulder flex/ext incorporated into DBE x 5 Alternate LAQs x 10 Chest expansion exercises with B shoulder ER/IR incorporated into DBE x 5 Seated heel raises Chest expansion exercises with B shoulder hor abd/add incorporated into DBE x 5 Informed Consent/Education: Patient was instructed in purpose of PT consult and plan of care. Agreeable to proceed with established PT POC to achieve personal goals. Assessment: Ambulation currently limited by chest tube attachment. Patient presents with clinical signs and symptoms consistent with current/admitting diagnoses that have resulted to mobility limitations, gait instability, generalized weakness, and overall ADL decline as demonstrated by the following impairment level findings: 1. Decreased strength to B UE/LE major muscle groups 2. Impaired sitting/standing balance 3. Impaired activity tolerance 4. Shortness of breath Impairments are contributing to the following functional limitations: 1. Decline in bed mobility skills 2. Decline in transfer skills 3. Difficulty with ambulation without assistive device and physical assistance 4. Increased completion time for mobility ADL performance 5. Increased risk for falls 6. Difficulty with managing steps alone safely Patient is assessed as a [id number] moderate complexity based on the following: History: 77-year-old female with past medical history as indicated above Examination: Demonstrable impairment in strength, balance, and mobility level with underlying impairments and functional limitations as exhibited above as well as deficit score of 36% utilizing the [facility] Mobility Inpatient Short Form Presentation: Evolving Decision Makin moderate complexity Goals: Goals X1 week 1. Supine-Sit independent 2. Sit-Supine independent 3. Sit-Stand independent 4. Stand-Sit independent with SPC 5. Bed-Chair independent with SPC 6. Chair-Bed independent with SPC 7. Independent gait on level surface with use of SPC for at least 300 feet without report of pain nor dyspnea (ONCE CHEST TUBES ARE CLEARED BY SURGEON) 8. Independent stair negotiation while holding onto [] rails for at least [] s teps without report of pain nor dyspnea (ONCE CHEST TUBES ARE CLEARED BY SURGEON) 9. Independent with home exercise program 10. Good static and dynamic standing balance/tolerance PLAN OF CARE/TREATMENT PLAN: 1-2x/day, 7 days/week x 1 week. Plan of care has been reviewed with the BOATHOUSE KEEPER providing the service under Physical Therapy direction. Chest tubes are not to be detached from wall or from patient at any time per surgeon. Initiate seated level and or bed level UE/LE exercises. May do marching in place while holding onto FWW as patient is currently restrained to the wall by chest tubes. Put gait belt BELOW chest tube site during transfers. Closely monitor telemetry readings of vital signs. Progress strength, balance, and mobility level as tolerated. Incorporate chest expansion exercises with deep breathing in between activities. DISCHARGE RECOMMENDATIONS: [] Home with no services [] [X] Home with services. Patient will benefit from home health PT services in order to progress mobility level using least restrictive assistive ambulatory device, assess home safety, identify additional equipment needs, and establish a functional maintenance program that will increase ability of patient to remain at home. [] Home with outpatient PT [] [] SNF for continued rehabilitation [] [] Intermediate Care [] [] SNF versus LTC based on ability to participate and progress [] TREATMENT CODE/TIME: 71479 x 20 minutes, 19194 x 10 minutes beginning at 14:20 PM. Thank you for the opportunity to participate in the care of this patient. Lisa Mcneil PT, DPT, CLT [facility] [place], [place]
--- NOTE | 2022-08-25 18:25 | PDOC.CMPRO ---
Date of service: 08/25/22 Time of Service: 18:25 Care Management Progress Note Progress Note Text Progress Note Text: S/O: Dmitry was sitting up in bed when CM met with him. He stated that he was having pain earlier, but it has been attended to by his RN. He stated that per MD, his goals are pain control and to walk/move around. He was evaluated by PT today, who stated that he may benefit from HH PT. CM discussed having HH services with Dmitry, and he is agreeable to this plan. CM will continue to follow. A: Gregorio is a 77 year old male admitted to [facility] on 08/03/22 with pneumothorax. P: Dmitry will have a stress test on Monday, and may return to the OR after, pending results of the MPI. Per MD, transfer remains an alternate plan of care. Once he is medically ready, he will return home. A friend will drive him home via private vehicle, and he will follow up with his discharge plan of care. CM will continue to follow.
[2022-08-26] VITALS (12 sets, daily range): BP systolic 96–115; BP diastolic 58–71; PULSE 77–101; RESP 18–22; TEMP 36.1–36.8; O2SAT 92–95
[2022-08-26] MEDS: oxyCODONE 5 MG TAB PO ×3 (06:12→19:56)
[2022-08-26] MEDS: Budesonide/Formoterol 80/4.5 6.9 GM 60 PUFF INH IH ×2 (08:27→19:45)
[2022-08-26] MEDS: Tiotropium Bromide-Respimat 10 PUFF INH 2 PUFF IH (08:27)
[2022-08-26] MEDS: Nicotine 21 MG/24 HR PATCH TD (08:34)
[2022-08-26] MEDS: Polyethylene Glycol 3350 17 GM PACKET PO (08:34)
[2022-08-26] MEDS: buPROPion-CR 150 MG TABCR PO ×2 (08:34→19:54)
[2022-08-26] MEDS: Docusate Sodium 100 MG CAP PO ×2 (08:34→19:53)
[2022-08-26] MEDS: Clotrimazole 1% 15 GM TUBE TP ×2 (09:00→20:11)
--- NOTE | 2022-08-26 12:00 | DI.RAD_ITS ---
Exam(s) XR PORTABLE CHEST AP EXAM: XR PORTABLE CHEST AP CLINICAL HISTORY: at Noon, s/p water seal trial of post. chest tube TECHNIQUE: 2D digital imaging was performed. COMPARISON: CR XR PORTABLE CHEST AP from 08/24/2022 FINDINGS: Two chest tubes are again noted on the left. There has been no change in size of the small left apic al pneumothorax. Underlying emphysematous and fibrotic changes are present. No superimposed infiltr ates or effusions. IMPRESSION: Stable size small left apical pneumothorax. DATA REPOSITORY: RADIATION DOSE DELIVERED:
--- NOTE | 2022-08-26 15:33 | W.PM.PROGNOT ---
Date of Service Date of service: 08/26/22 Time of Service: 15:34 Assessment and Plan Assessment and plan (1) Surgical aftercare, respiratory system: Status: Acute Assessment and plan: POD #3 s/p VATS- left and mechanical pleurodecisis. CT labeled posterior and MID. intermittent air leak from the posterior CT. Mid chest tube with continuous leak. MID on -10mmhg suction Posterior to waterseal slt apical PTX <5%, unchanged Cont pulm toilet and supportive care d/c A line and change to med surg. status pulm note appreciated Add Ibuprofen and flexeril for pain control (2) Pneumothorax: Status: Acute (3) COPD (chronic obstructive pulmonary disease): Status: Chronic (4) Ruptured emphysematous bleb of lung: Status: Acute (5) Persistent air leak: Status: Acute Subjective Subjective Interval history since last seen: Mr. Galeana is complaining of pain at his chest tube sites. Otherwise he is doing well. He is eating. He has had no N/V. Exam Const General: cooperative, comfortable and no acute distress Nutritional Appearance: thin Orientation: alert and oriented x3 HENMT Head: normocephalic and atraumatic Resp Effort & Inspection: normal respiratory effort Auscultation: clear to auscultation bilaterally Other: Chest tubes in place. Posterior chest tube was placed on water seal- minimal air leak The superior chest tube was continued on suction- large air leak Cardio Rate: regular rate Rhythm: regular rhythm Objective Last Vital Signs Temp 97.9 F 08/26/22 15:31 Pulse 88 08/26/22 15:31 Resp 22 08/26/22 15:31 BP 96/61 L 08/26/22 15:31 Pulse Ox 95 08/26/22 15:31 Time Spent with Patient Time Spent with Patient: 25-34 minutes Time was spent: indepentently interpreting results and counseling the patient
--- NOTE | 2022-08-26 15:35 | CMPROGNOTE_ITS ---
Date of service: 08/26/22 Time of Service: 15:35 Care Management Progress Note Progress Note Text Progress Note Text: S/O: Dmitry remains inpatient, undetermined plan at this time. CM will continue to follow. A: Gregorio is a 77 year old male admitted to [facility] on 08/03/22 with pneumothorax. P: Dmitry will have a stress test on Monday, and may return to the OR after, pending results of the MPI. Per MD, transfer remains an alternate plan of care. Once he is medically ready, he will return home. A friend will drive him home via private vehicle, and he will follow up with his discharge plan of care. CM will continue to follow.
--- NOTE | 2022-08-26 15:40 | PT.INNT ---
Date of service: 08/26/22 Time of Service: 13:42 PT Notes Visit Reasons: Pneumothorax Patient declines therapy stating he is in too much pain to move at all.
[2022-08-26] MEDS: Ibuprofen 600 MG TAB PO ×2 (17:27→23:29)
[2022-08-26] MEDS: Cyclobenzaprine 10 MG TAB PO (19:54)
[2022-08-26] MEDS: Acetaminophen 325 MG TAB 650 MG PO (19:57)
[2022-08-27 01:52] VITALS: RESP 18
[2022-08-27] MEDS: Ibuprofen 600 MG TAB PO ×4 (05:48→23:28)
[2022-08-27 06:33] VITALS: BP 103/63; PULSE 70; RESP 20; TEMP 36.8; O2SAT 96
[2022-08-27] MEDS: Budesonide/Formoterol 80/4.5 6.9 GM 60 PUFF INH IH ×2 (08:00→19:24)
[2022-08-27] MEDS: Tiotropium Bromide-Respimat 10 PUFF INH 2 PUFF IH (08:01)
[2022-08-27] MEDS: Nicotine 21 MG/24 HR PATCH TD (09:44)
[2022-08-27] MEDS: Polyethylene Glycol 3350 17 GM PACKET PO (09:46)
[2022-08-27] MEDS: Docusate Sodium 100 MG CAP PO ×2 (09:46→20:11)
[2022-08-27] MEDS: Cyclobenzaprine 10 MG TAB PO ×3 (09:46→20:10)
[2022-08-27] MEDS: Clotrimazole 1% 15 GM TUBE TP ×2 (09:47→20:11)
[2022-08-27] MEDS: oxyCODONE 5 MG TAB PO (09:47)
[2022-08-27] MEDS: buPROPion-CR 150 MG TABCR PO ×2 (09:47→20:10)
--- NOTE | 2022-08-27 10:17 | W.PM.PROGNOT ---
Date of Service Date of service: 08/27/22 Time of Service: 10:17 Assessment and Plan Assessment and plan (1) Surgical aftercare, respiratory system: Status: Acute Assessment and plan: POD #4 s/p VATS- left and mechanical pleurodecisis. CT labeled posterior and MID. No air leak from the posterior CT. Mid chest tube with intermittent leak. Place MID CT tube waterseal Posterior to waterseal slt apical PTX <5%, unchanged- CXR at noon after change from suction to waterseal Cont pulm toilet and supportive care Add Ibuprofen and flexeril for pain control (2) Pneumothorax: Status: Acute (3) COPD (chronic obstructive pulmonary disease): Status: Chronic (4) Ruptured emphysematous bleb of lung: Status: Acute (5) Persistent air leak: Status: Acute Subjective Subjective Interval history since last seen: Gregorio is doing OK. He has no complains. HIs pain is better controlled on Oxycodon and flexeril CXR yesterday showed no worsening of his PTX after one of his CHest tubes was placed to water seal Exam Const General: cooperative, comfortable and no acute distress Orientation: alert and oriented x3 Chest Other: chest tubes in good position. Minimal output from both. No air leak with respiration with the posterior chest tube Mid chest tube still with an air leak. Seems better then yesterday though Resp Effort & Inspection: normal respiratory effort Auscultation: clear to auscultation bilaterally Cardio Rate: regular rate Rhythm: regular rhythm Objective Last Vital Signs Temp 98.2 F 08/27/22 06:33 Pulse 70 08/27/22 06:33 Resp 20 08/27/22 06:33 BP 103/63 08/27/22 06:33 Pulse Ox 96 08/27/22 06:33 Time Spent with Patient Time Spent with Patient: 25-34 minutes Time was spent: preparing to see the patient(eg.review tests), indepentently interpreting results and counseling the patient
[2022-08-27] MEDS: Acetaminophen 325 MG TAB 650 MG PO (11:49)
--- NOTE | 2022-08-27 12:00 | DI.RAD_ITS ---
Exam(s) XR PORTABLE CHEST AP EXAM: XR PORTABLE CHEST AP CLINICAL HISTORY: Chest tube to water seal TECHNIQUE: 2D digital imaging was performed. COMPARISON: CR XR PORTABLE CHEST AP from 08/26/2022 FINDINGS: The more superior of the left-sided chest tubes unchanged in position. The more inferior chest tube has been the been repositioned now projecting near the hilum. There is a some increase in size of th e pneumothorax, remains small.. LUNGS: Severe underlying emphysematous and fibrotic changes. HEART: Normal size. AORTA: Normal diameter. BONES: Unremarkable for age. Soft tissues: Unremarkable. IMPRESSION: Increase in size of right pneumothorax, still small. DATA REPOSITORY: RADIATION DOSE DELIVERED:
--- NOTE | 2022-08-27 12:24 | DI.VRAD_ITS ---
PROCEDURE INFORMATION: Exam: XR Chest Exam date and time: 08/27/2022 12:08 PM Age: 77 years old Clinical indication: Condition or disease; Other: Chest tube to water seal TECHNIQUE: Imaging protocol: Radiologic exam of the chest. Views: 1 view. COMPARISON: CR XR PORTABLE CHEST AP 08/26/2022 12:26 PM FINDINGS: Tubes, catheters and devices: Thoracostomy tube terminates in the left apex. Additional thoracostomy tube terminates adjacent to the left hilum.. Lungs: Opacities in the bases may represent atelectasis or pneumonia. Pleural spaces: Persistent pneumothorax in the left apex. It has increased in size since the . Measures 2.6 cm in width. Heart/Mediastinum: Unremarkable. No cardiomegaly. Bones/joints: Unremarkable. IMPRESSION: 1. Persistent pneumothorax in the left apex. It has increased in size since the . Measures 2.6 cm in width. 2. Thoracostomy tube terminates in the left apex. Additional thoracostomy tube terminates adjacent to the left hilum.. 3. Opacities in the bases may represent atelectasis or pneumonia. Dictated and Authenticated by: Bobby Rubio MD. Ordering:MAGALIE Nuñez MD
--- NOTE | 2022-08-27 13:44 | PTTR_ITS ---
PT Notes Visit Reasons: Pneumothorax Inpatient Physical Therapy Treatment Note [facility] Date: 08/27/22 SUBJECTIVE: Gregorio states that he is feeling better today. He is willing to try some exercises. OBJECTIVE: [] THEREX: performed a global bed ex for LE including AP x15, SAQ, SLR, heel s lides, hip ab/add x 10 ea as well as bridging x 10. ASSESSMENT: did very well. No c/o SOB or pain. PLAN: will continue to progress following PT POC. TREATMENT CODE/TIME: 15 min TPx1
[2022-08-27 15:27] VITALS: BP 96/58; PULSE 89; RESP 18; TEMP 37.1; O2SAT 91
[2022-08-27 23:28] VITALS: BP 112/68; PULSE 86; RESP 20; TEMP 35.9; O2SAT 94
[2022-08-28] MEDS: Ibuprofen 600 MG TAB PO ×2 (05:42→12:06)
[2022-08-28 06:25] VITALS: BP 93/55; PULSE 89; RESP 22; TEMP 36.1; O2SAT 93
--- NOTE | 2022-08-28 08:00 | DI.RAD_ITS ---
Exam(s) XR PORTABLE CHEST AP EXAM: XR PORTABLE CHEST AP CLINICAL HISTORY: f/u PTX TECHNIQUE: 2D digital imaging was performed. COMPARISON: CR XR PORTABLE CHEST AP from 08/26/2022 CR,XR XR PORTABLE CHEST AP from 08/27/2022 FINDINGS: The more inferior of the chest tube has been repositioned more laterally. LUNGS: Underlying emphysematous and fibrotic changes. No acute infiltrate. Small left pneumothorax, with slight improvement from prior. IMPRESSION: Slight improvement in left pneumothorax. DATA REPOSITORY: RADIATION DOSE DELIVERED:
[2022-08-28] MEDS: Budesonide/Formoterol 80/4.5 6.9 GM 60 PUFF INH IH (08:12)
[2022-08-28] MEDS: Tiotropium Bromide-Respimat 10 PUFF INH 2 PUFF IH (08:13)
[2022-08-28] MEDS: Nicotine 21 MG/24 HR PATCH TD (08:42)
[2022-08-28] MEDS: buPROPion-CR 150 MG TABCR PO (08:44)
[2022-08-28] MEDS: Cyclobenzaprine 10 MG TAB PO (08:44)
[2022-08-28] MEDS: Docusate Sodium 100 MG CAP PO (08:45)
[2022-08-28] MEDS: Polyethylene Glycol 3350 17 GM PACKET PO (08:46)
--- NOTE | 2022-08-28 10:24 | DI.VRAD_ITS ---
PROCEDURE INFORMATION: Exam: XR Chest Exam date and time: 08/28/2022 10:02 AM Age: 77 years old Clinical indication: Condition or disease; Other: F/u ptx TECHNIQUE: Imaging protocol: Radiologic exam of the chest. Views: 1 view. COMPARISON: CR XR PORTABLE CHEST AP 08/27/2022 12:08 PM FINDINGS: Interval adjustment inferior left-sided chest tube. Subcutaneous air in the left axilla/chest wall increased. Left apical pneumothorax grossly stable No pleural effusion. The heart and mediastinum as well as the osseous structures are grossly stable IMPRESSION: Interval adjustment of the inferior left chest tube. Increased left-sided subcutaneous air Left apical pneumothorax is grossly stable Dictated and Authenticated by: Jamar Haro MD. Ordering:MAGALIE Nuñez MD
--- NOTE | 2022-08-28 10:56 | W.PM.PROGNOT ---
Date of Service Date of service: 08/28/22 Time of Service: 10:56 Assessment and Plan Assessment and plan (1) Surgical aftercare, respiratory system: Status: Acute Assessment and plan: POD #5 s/p VATS- left and mechanical pleurodecisis. CT labeled posterior and MID. Air leak from both chest tubes Increased subcutanous air since beeing on waterseal worse PTX Cont pulm toilet and supportive care I will call [facility] to try and see if I can transfer him Add Ibuprofen and flexeril for pain control (2) Pneumothorax: Status: Acute (3) COPD (chronic obstructive pulmonary disease): Status: Chronic (4) Ruptured emphysematous bleb of lung: Status: Acute (5) Persistent air leak: Status: Acute Subjective Subjective Interval history since last seen: Mr. Galeana is doing OK. Not SOB. Has been on suction since yesterday morning. Eating OK. No N/V. Exam Const General: cooperative, comfortable and no acute distress Orientation: alert and oriented x3 HENMT Head: normal to inspection and normocephalic Resp Effort & Inspection: normal respiratory effort Auscultation: clear to auscultation bilaterally and breath sounds absent on th left (upper) Other: Chest tubes in place. Increased subcutanous air on waterseal. Bilateral air leaks with talking Cardio Rate: regular rate Rhythm: regular rhythm Objective Last Vital Signs Temp 96.9 F L 08/28/22 06:25 Pulse 89 08/28/22 06:25 Resp 22 08/28/22 06:25 BP 93/55 L 08/28/22 06:25 Pulse Ox 93 08/28/22 06:25 Time Spent with Patient Time Spent with Patient: 35-49 minutes Time was spent: obtaining and/or reviewing separately otained hiistory, referring, communicating with other health patient care associate, indepentently interpreting results, counseling the patient and care coordination
[2022-08-28] MEDS: Acetaminophen 325 MG TAB 650 MG PO (11:07)
--- NOTE | 2022-08-28 11:20 | W.PM.PROGNOT ---
Date of Service Date of service: 08/28/22 Time of Service: 11:21 Objective Last Vital Signs Temp 96.9 F L 08/28/22 06:25 Pulse 89 08/28/22 06:25 Resp 22 08/28/22 06:25 BP 93/55 L 08/28/22 06:25 Pulse Ox 93 08/28/22 06:25
--- NOTE | 2022-08-28 12:26 | PT.INTREAT ---
PT Notes Visit Reasons: Pneumothorax Inpatient Physical Therapy Treatment Note [facility] Date: 08/28/22 SUBJECTIVE: Gregorio states that he is feeling even better today. No soreness from exercises during yesterdays session. OBJECTIVE: [] THEREX: performed a global bed ex for LE including AP x20, SAQx20, SLRx15, heel [id number], hip ab/add x 20 ea. ASSESSMENT: continues to progress each day. Fatigue noted towards end of each ex but offered no complaints. PLAN: will continue to progress his strength and functional mobility to tolerance. May try sitting EOB tomorrow. TREATMENT CODE/TIME: 15 min TPx1
--- NOTE | 2022-08-28 12:29 | DSE_ITS ---
Date of service: 08/28/22 Time of Service: 12:30 DS: Diagnosis Discharge Diagnosis (1) Pneumothorax: Status: Acute (2) COPD (chronic obstructive pulmonary disease): Status: Chronic (3) Ruptured emphysematous bleb of lung: Status: Acute (4) Persistent air leak: Status: Acute Discharge Plan Disposition Patient Disposition: Transfer-Acute Inpatient Care Specific Acute Inpt Facility: [facility] Condition: Stable Discharge Details Reason For Visit: Pneumothorax Admit Date/Time: 08/03/22 18:47 Admit Provider: Leland Rasmussen Attending Provider: Leland Rasmussen Primary Care Provider: JonnieLor lei [facility] Course Hospital Course: Mr. Galeana is a pleasant 77 year old male with a PMHx of COPD and continues Tobacco abuse who was admitted to [facility] on 08/03/22 for a spontaneous Ptx. Small pig tail chest tube was placed on 08/03. 08/06- Pig tail chest tube replaced. continued air leak Diuscussed case with [facility] and [facility]. Neither had a bed. Attempted decreasing suction and then placing patient on waterseal. Unfortunately the PTX increased every time we placed him on waterseal and he became symptomatic 08/15- Attempted VATS. Patient became hypotensive after induction. Some changes on his heart monitor. 08/16- Chemical Pleuredisis done ( no beds at either [facility] or [facility]) 08/22- Myocardial Perfusion SCan done 08/24- VATS with mechanical pleuredises 08/28- continued Air leak. Contacted [facility]. They will accept in transfer. Appreciate their willingness to take this patient he has been afebrile and vitals have been stable throughout his hospitalization Medications while at the Hospital: Symbicort 80/4.5 mcg IH- 2 puffs BID Wellbutrin SR- 150 mg BID Spiriva- 2 puffs daily Nicoderm CQ- 21 mg Miralax 17 gm daily Docusate 100 mg tid ibuprofen 600 mg po q6h prn Flexeril 10 mg tid Xopenex updraft- 1.25 mg UPD q 2 H prn Oxycodon 5 mg po q6H prn pain tylenol 650 mg po q6h prn Home Meds and New Rx's Prescriptions: Continued albuterol sulfate 8.5 GM HFA aerosol inhaler 2 puff inhalation Q4H PRN PRN Trelegy Ellipta 100-62.5-25 mcg Blister With Device 1 inh INHALATION QDAY Discharge Instructions Activity:: Activity as Tolerated Equipment/Supplies:: No Equipment Needed Diet:: As Tolerated Discharge Orders Discharge Orders: Discharge Order (Routine); Ordered 08/28/22 Ordered By: Savannah Chen DS: Summary Time Spent with Patient providing and/or coordinating discharge services: Greater than 30 minutes Status at Discharge Functional status at discharge: independent ambulation Overall status at discharge: patient is not back to baseline Mental Status: mental status grossly normal Speech and Movement: speech and movement normal Mood: congruent mood Affect: normal affect Exam Psych Mental Status: mental status grossly normal Speech and Movement: speech and movement normal Mood: congruent mood Affect: normal affect DS: Data Vitals/I&O Vitals and I&O: Vital Signs Temperature 96.9 F L 08/28/22 06:25 Temperature Source Tympanic 08/28/22 06:25 Pulse 89 08/28/22 06:25 Pulse Rhythm Regular 08/27/22 23:43 Pulse 91 H 08/25/22 14:00 Respiratory Rate 22 08/28/22 06:25 Respiratory Effort Normal, Non-Labored 08/27/22 23:43 Respiratory Depth Normal 08/27/22 23:43 Respiratory Pattern Normal 08/27/22 23:43 Blood Pressure 93/55 L 08/28/22 06:25 Blood Pressure Mean 64 08/25/22 14:00 Blood Pressure Position Supine 08/25/22 07:30 Pulse Oximetry 93 08/28/22 06:25 Oxygen Delivery Method Room Air 08/28/22 06:25 Oxygen Flow Rate 0 08/28/22 06:25 Fraction of Inspired Oxygen (FIO2) 93 08/15/22 10:36 Pain Level 2 08/28/22 12:06 Comment RN notified 08/24/22 04:00 Arterial Systolic 147 08/25/22 10:12 Arterial Diastolic 56 08/25/22 10:12 Arterial Mean 76 08/25/22 10:12 Intake & Output 08/27/22 08/28/22 08/28/22 23:59 11:59 23:59 Intake Total 850 / 850 Output Total 1235 / 2235 625 / 625 Balance -385 / -1385 -625 / -625 Intake: IV Oral 840 / 840 Output: Chest Tube Drainage 10 / 10 Urine 1225 / 2225 625 / 625 Other: Urine Color Yellow Yellow Urine Appearance Clear Clear Voiding Methods Urinal Urinal PFSH All Active Problems Surgical aftercare, respiratory system (Acute) Persistent air leak (Acute) Ruptured emphysematous bleb of lung (Acute) Discharge planning issues (Acute) Tobacco abuse disorder (Acute) COPD (chronic obstructive pulmonary disease) (Chronic) Pneumothorax (Acute) Medical History Perioperative hypertension Subcutaneous emphysema Surgical History (Updated 08/28/22 @ 12:33 by Savannah Chen MD) History of lung surgery VATS right chest- [facility] VATS- left chest 2022 Social History Smoking/Tobacco Use Status: Current every day Tobacco Type: cigarettes Smoking risk assessment performed?: Yes Alcohol Intake: former Drug use: Never Substance use type: does not use Do you feel safe at home: Yes Do you feel safe in your relationship?: Yes Time Spent with Patient Time Spent with Patient: <45 minutes Time was spent: care coordination
[2022-08-28 14:42] VITALS: BP 90/52; PULSE 86; RESP 16; TEMP 36.9; O2SAT 94
[2022-08-28 15:24] VITALS: BP 97/62; PULSE 92; RESP 22; TEMP 36.5; O2SAT 100
[2022-08-28] MEDS: oxyCODONE 5 MG TAB PO (15:36)
--- NOTE | 2022-08-28 15:42 | CMDISCH_ITS ---
Date of service: 08/28/22 Time of Service: 15:43 LACE Index Scoring Tool Questions: Length of Stay (in days): 14 or more Was the patient admitted via the E.D.?: Yes Comorbidities: Chronic Pulmonary Disease E.D. Visits: 1 Answers: Total Score: 13 Risk of Readmission: High Risk Care Management Discharge Plan Reason for Hospitalization: Pneumothorax Discharge Plan: Per Dr. Chen, Transfer-Acute Inpatient Care at [facility] Patient/Family Education Needs: Transfer instructions.
--- NOTE | 2022-08-28 15:42 | NUR.NOTE ---
Nursing Note: At approximately 1535 this RN called Nurse Carol at [facility] to give a report for this patient prior to his transfer to their care. The patient will be going into room 403B there. MIRELLA Medina asked that our RN call her once the patient leaves [facility]. This message and direct phone number was given to oncoming MIRELLA Bonilla
--- NOTE | 2022-09-01 18:05 | INDS_ITS ---
Date of service: 08/29/22 PT Notes Visit Reasons: Pneumothorax Physical Therapy Inpatient Discharge Summary Date: 08/29/2022 Date of service: 08/25/2022 through 08/28/2022 This is a clinical summary of care provided for the duration of dates listed above. No charge was made in the completion of this documentation. Referring Doctor: Faiza Carroll MD PT Orders: PT CONSULT: pt has x2 CT and cannot come off suction Precautions: Fall. Standard. Activity as tolerated.??Per Dr. Carroll,? patient's chest tubes need to be connected to patient at all times,? all PT activities need to be bed level,? bedside, or seated on chair. Patient Profile/Admitting Diagnosis:? Dmitry is a 77-year-old male patient S/P VATS L and mechanical pleurodesis on postoperative day 2,? pneumothorax,? COPD,? ruptured emphysematous bleb of lung,? and persistent air leak referred to PT for extended stay weakness.? PMHX: All Active Problems?(Updated 08/03/22 @ 20:20 by Guru Cosby MD) Discharge planning issues (Acute) Tobacco abuse disorder (Acute) COPD (chronic obstructive pulmonary disease) (Chronic) Pneumothorax (Acute) Social History/Home Situation: Lives alone in an apartment.? Independent with all aspects of ADLs prior to admission.? Rides [employer] for all his errands.? Equipment Owned/DME: None Subjective: NT. See most recent BORING INSPECTOR notes. Objective: General Observation: NT. See most recent BORING INSPECTOR notes. Mental Status: NT. See most recent BORING INSPECTOR notes. Pain: NT. See most recent BORING INSPECTOR notes. Vital Signs: NT. See most recent BORING INSPECTOR notes. ROM: Right Upper Extremity: ? Shoulder Flexion WFL. Shoulder abduction WFL. Elbow flexion WFL. Wrist flexion WFL. Functional opening and closing of hand WFL. Left Upper Extremity:? Shoulder Flexion WFL. Shoulder abduction WFL. Elbow flexion WFL. Wrist flexion WFL. Functional opening and closing of hand WFL. Right Lower Extremity: Hip flexion WFL. Hip abduction WFL. Knee flexion WFL. Ankle dorsiflexion WFL. Ankle plantarflexion WFL. Left Lower Extremity: Hip flexion WFL. Hip abduction WFL. Knee flexion WFL. Ankle dorsiflexion WFL. Ankle plantarflexion WFL. Strength: Right Upper Extremity: Shoulder flexors 4-/5. Shoulder abductors 4-/5. Elbow flexors 4-/5. Elbow extensors 4-/5. Manager Compliance strong. Left Upper Extremity: Shoulder flexors 4-/5. Shoulder abductors 4-/5. Elbow flexors 4-/5. Elbow extensors 4-/5. Manager Compliance strong. Right Lower Extremity: Hip flexors 4-/5. Hip abductors 4-/5. Knee flexors 4-/5. Knee extensors 4-/5. Ankle dorsiflexors 4-/5. Ankle plantarflexors 4-/5. Left Lower Extremity: Hip flexors 4-/5. Hip abductors 4-/5. Knee flexors 4-/5. Knee extensors 4-/5. Ankle dorsiflexors 4-/5. Ankle plantarflexors 4-/5. Bed Mobility/Transfers: Supine to sit stand by assist Sit to stand contact guard assist Stand to sit contact guard assist Bed to bedside commode contact guard assist with FWW Bedside commode to bed contact guard assist with FWW Bed to reclining chair with contact guard assist using FWW Gait: Instructed patient with level surface ambulation of 3-5 steps requiring contact guard assist using FWW to transfer from bedside to bedside chair.? Nurse Carolyn ensured that chest tubes were safe prior to transfer. Balance: Static Sitting: Good Dynamic Sitting: Fair Static Standing: Fair Dynamic Standing: Fair Assessment: Ambulation currently limited by chest tube attachment. ? Patient presents with clinical signs and symptoms consistent with current/admitting diagnoses that have resulted to mobility limitations, gait instability, generalized weakness, and overall ADL decline as demonstrated by the following impairment level findings: 1.? Decreased strength to B UE/LE? major muscle groups 2.? Impaired sitting/standing balance 3.? Impaired activity tolerance 4.? Shortness of breath Impairments are contributing to the following functional limitations: 1.? Decline in bed mobility skills 2.? Decline in transfer skills 3.? Difficulty with ambulation without assistive device and physical assistance 4.? Increased completion time for mobility ADL performance 5.? Increased risk for falls 6.? Difficulty with managing steps alone safely Goals: Goals X1 week 1. Supine-Sit independent NOT MET 2. Sit-Supine independent NOT MET 3. Sit-Stand independent NOT MET 4. Stand-Sit independent with SPC NOT MET 5. Bed-Chair independent with SPC NOT MET 6. Chair-Bed independent with SPC NOT MET 7. Independent gait on level surface with use of SPC for at least 300 feet witho ut report of pain nor dyspnea (ONCE CHEST TUBES ARE CLEARED BY SURGEON) NOT MET 8. Independent stair negotiation while holding onto B rails for at least 5 steps without report of pain nor dyspnea (ONCE CHEST TUBES ARE CLEARED BY SURGEON) NOT MET 9. Independent with home exercise program NOT MET 10. Good static and dynamic standing balance/tolerance NOT MET PLAN OF CARE/TREATMENT PLAN: 1-2x/day, 7 days/week x 1 week. Plan of care has been reviewed with the BORING INSPECTOR providing the service under Physical Therapy direction. Chest tubes are not to be detached from wall or from patient at any time per surgeon. Initiate seated level and or bed level UE/LE exercises.? May do marching in place while holding onto FWW as patient is currently restrained to the wall by chest tubes. Put gait belt BELOW chest tube site during transfers. Closely monitor telemetry readings of vital signs. Progress strength,? balance,? and mobility level as tolerated. Incorporate chest expansion exercises with deep breathing in between activities. DISCHARGE RECOMMENDATIONS: [] ? Home with no services [] [X] ? Home with services.? Patient will benefit from home health PT services in order to progress mobility level using least restrictive assistive ambulatory device, assess home safety, identify additional equipment needs, and establish a functional maintenance program that will increase ability of patient to remain at home. [] ? Home with outpatient PT [] [] ? SNF for continued rehabilitation [] [] ? [facility] [facility] [] [] ? SNF versus LTC based on ability to participate and progress [] TREATMENT CODE/TIME: OK Thank you for the opportunity to participate in the care of this patient. Lisa Mcneil PT, DPT, CLT [facility] [place], [place]
== END 2022-08-28 16:25 | disposition short-term general hospital (02) | DRG 165 ==
LOC: ER 20:25 → ICU 20:27 → MS 08-04 11:47 → ICU 08-23 17:05 → MS 08-25 16:08
PROVIDERS: Family Medicine; Internal Medicine; Student in an Organized Health Care Education/Training Program; Surgery; Admitting Provider Surgery; Emergency Provider Emergency Medicine; PCP Family Medicine; Visit Provider Surgery
PROC: 0BJ08ZZ Inspection of Tracheobronchial Tree, Via Natural or Artificial Opening Endoscopic (ICD-10-PCS; CPT 32601; principal; 2022-08-15 11:45)
PROC: 0B5P4ZZ Destruction of Left Pleura, Percutaneous Endoscopic Approach (ICD-10-PCS; CPT 32601; principal; 2022-08-24 10:15)
DX: J93.11 Primary spontaneous pneumothorax (principal); J43.2 Centrilobular emphysema; J95.812 Postprocedural air leak; F17.210 Nicotine dependence, cigarettes, uncomplicated; I10 Essential (primary) hypertension; T81.82XA Emphysema (subcutaneous) resulting from a procedure, initial encounter; Y82.8 Other medical devices associated with adverse incidents; Z53.09 Procedure and treatment not carried out because of other contraindication; R94.31 Abnormal electrocardiogram [ECG] [EKG]; I95.2 Hypotension due to drugs; T41.0X5A Adverse effect of inhaled anesthetics, initial encounter; Y83.8 Other surgical procedures as the cause of abnormal reaction of the patient, or of later complication, without mention of misadventure at the time of the procedure
CPT/HCPCS: 32556; 31622; 32560; 32650; 36415; 71045; 76604; 78452; 80048; 80053; 82805; 84145; 85027; 87635; 93005; 93016; 93018; 93306; 94640; 96360; 96361; 97110; 97162; 97530; 99222; 99231; 99232; 99285; J1650; 71046; 71260; 83735; 84484; 85025; 93010; 93017; 94664; 94760; J0690; J1100; J1885; J2060; J2370; J2405; J2704; J2785; J3010; J3490; J7512; J7614; J7620

== ENCOUNTER 2022-09-17 08:18 | Emergency (ER) | payer MEDICARE, MEDICAID, SELFPAY ==
[2022-09-17] VITALS (30 sets, daily range): BP systolic 110–144; BP diastolic 65–105; PULSE 96–135; RESP 14–35; TEMP 36.6; O2SAT 91–100
--- NOTE | 2022-09-17 08:15 | DI.RAD_ITS ---
Exam(s) XR PORTABLE CHEST AP EXAM: XR PORTABLE CHEST AP CLINICAL HISTORY: Shortness of breath TECHNIQUE: 2D digital imaging was performed of the chest. Two images were obtained. AP views were obtained. COMPARISON: CR,XR XR PORTABLE CHEST AP from 08/28/2022 FINDINGS: MEDIASTINUM: Normal. HEART: Normal. PULMONARY VASCULATURE: Normal. LUNGS: The lungs are hyperinflated with severe emphysematous changes in the lungs. No focal consolid ations are seen. PLEURAL SPACE: No pleural effusion or pneumothorax. BONE:Within normal limits for the patient's age. OTHER FINDINGS:Normal. IMPRESSION: No acute pulmonary findings. DATA REPOSITORY: RADIATION DOSE DELIVERED:
--- NOTE | 2022-09-17 08:23 | ED.GENADUL_ITS ---
Discharge Plan Disposition Patient Disposition: Home Discharge Details Clinical Impression: COPD with acute exacerbation Primary Care Provider: Lor Cristina ED Provider: Asad Martínez Home Meds and New Rx's Prescriptions: New doxycycline hyclate 100 mg capsule 100 mg PO BID Qty: 10 0RF prednisone 50 mg tablet 50 mg PO DAILY Qty: 5 0RF Trelegy Ellipta 100-62.5-25 mcg blister with device 1 inh inhalation DAILY Qty: 28 0RF albuterol sulfate 90 mcg/actuation HFA aerosol inhaler 2 puff inhalation Q6H PRNQty: 8.5 0RF Continued albuterol sulfate 8.5 GM HFA aerosol inhaler 2 puff inhalation Q4H PRN PRN Trelegy Ellipta 100-62.5-25 mcg Blister With Device 1 inh INHALATION QDAY Eliquis 5 mg tablet 5 mg PO BID Discharge Instructions Instructions: COPD (Chronic Obstructive Pulmonary Disease) (ED) Additional Instructions: Please read all of the information that accompanies these instructions. You were seen in the emergency department for your shortness of breath. You are receiving steroids and antibiotics that you should take as directed. Please schedule an appointment with your primary care provider later this week. Please return to the emergency department if develop fever worsening shortness of breath or have any other concerns. Your inhalers have been refilled. Medical Decision Making This is a chronically ill-appearing cachectic asthmatic with tachycardia and acute respiratory failure with hypoxia requiring supplemental oxygen. Equal br eath sounds reassuring against pneumothorax. Bedside ultrasound concerning for bilateral blebs. No chest pain and tachycardia likely secondary to albuterol treatment. Given no chest pain nor hypotension my suspicion is low for PE. His recent pneumothorax was complicated by PEs for which he was initiated on apixaban. Dry mucous membranes so we will provide 500 cc of crystalloid. Persistent wheeze will treat with additional albuterol and dexamethasone. No chest pain to suggest ACS. No significant lower extremity edema no history of CHF to suggest exacerbation. No falls or trauma to the chest to suggest increased risk for pneumothorax. Will obtain venous blood gas to assess for hypercarbia. No significant fevers nor cough to suggest pneumonia. I considered sepsis however did not draw blood cultures nor treat empirically with antibiotics as patient's presentation was not consistent with sepsis. Given history of COPD we will provide a one-time doxycycline. 9 AM Mildly elevated creatinine at 1.5 compared to baseline of 1.3. Mild increase in BUN. Mild anion gap. Very mild hyperglycemia but normal bicarbonate not consistent with DKA. Venous blood gas with mild acidemia mild hypercarbia. Very similar to prior dated 2 months ago. CBC with no anemia thrombocytopenia nor leukocytosis. 10 AM Swab negative for COVID influenza and RSV. Persistent tachycardia likely secon christian to albuterol however given dry mucous membranes will provide an additional 500 cc fluid bolus. Patient tolerated p.o. and saturating well on room air at the moment. Of note patient has been markedly tachycardic past however the majority of his heart rates have been within normal limits. 11:11 AM Patient's shortness of breath improved. His tachycardia resolved in the ED down to 96 but subsequently went up to 107. He was mildly tachycardic at the time of discharge likely secondary to nebulized beta agonists. He held his oxygen saturation on room air and tolerated p.o. with no nausea nor vomiting. I refilled his inhalers and sent him out with a 5-day burst of prednisone and 5- day course of doxycycline. I have asked health special weapons unit officer Lizeth to have the patient seen in the next week by his PCP for follow-up. Chronic conditions affecting the care of the patient: Asthma COPD History obtained from an outside historian: Paramedics [place] [facility] Diagnostic interpretations performed by me: [Per my independent interpretation chest x-ray shows:] [] Per my independent interpretation EKG shows: Narrow complex sinus tachycardia at a rate of 131. Right axis deviation. ST segment depressions [address] segment elevations. No T wave inversions. No acute injury pattern compared to prior dated last month tachycardia and ST segment depressions are new. Medications: Dexamethasone albuterol doxycycline Social determinants of health affecting disposition: Lives alone. Paramedics report cup of urine in bedside Management discussed with: N/A Treatment/interventions considered: Considered hospitalization but deferred given marked clinical improvement Response to therapies provided: Improved following nebulizers and steroids HPI General Date/Time Provider Initiated Documentation: 09/17/22 08:23 . HPI Narrative: This is a 77-year-old male with ongoing tobacco use prior pneumothorax and history of COPD now in the emergency department in the setting of shortness of breath. Patient has had increased sputum production over the past several days. He denies any fevers. He denies any chest pain cough dysuria and frequency. He said no abdominal pain. He has never been intubated in the past for COPD ex acerbations. He reportedly started wheezing yesterday. He was found tripoding by paramedics today. Prehospital he received nebulized ipratropium albuterol and an additional treatment of nebulized albuterol. His room air oxygen saturation was 95%. He was placed on nonrebreather. He reports that he smokes 10 cigarettes/day but denies any routine alcohol use. Related Data Home Medications Medication Instructions Recorded Confirmed albuterol sulfate 90 mcg/actuation 2 puff inhalation Q4H PRN PRN 03/29/09/17/22 aerosol inhaler fluticasone fur. 100 mcg-umeclid 1 inh inhalation QDAY 08/03/22 09/17/22 62.5 mcg-vilant 25 mcg inhalat.powder (Trelegy Ellipta) albuterol sulfate 90 mcg/actuation 2 puff inhalation Q6H PRN #8.5 09/17/22 aerosol inhaler grams apixaban 5 mg tablet (Eliquis) 5 mg PO BID 09/17/22 09/17/22 doxycycline hyclate 100 mg capsule 100 mg PO BID #10 caps 09/17/22 fluticasone fur. 100 mcg-umeclid 1 inh inhalation DAILY #28 ea 09/17/22 62.5 mcg-vilant 25 mcg inhalat.powder (Trelegy Ellipta) prednisone 50 mg tablet 50 mg PO DAILY #5 tabs 09/17/22 Previous Rx's Medication Instructions Recorded albuterol sulfate 90 mcg/actuation 2 puff inhalation Q6H PRN #8.5 09/17/22 aerosol inhaler grams doxycycline hyclate 100 mg capsule 100 mg PO BID #10 caps 09/17/22 fluticasone fur. 100 mcg-umeclid 1 inh inhalation DAILY #28 ea 09/17/22 62.5 mcg-vilant 25 mcg inhalat.powder (Trelegy Ellipta) prednisone 50 mg tablet 50 mg PO DAILY #5 tabs 09/17/22 Allergies Allergy/AdvReac Type Severity Reaction Status Date / Time No Known Allergies Allergy Unverified 09/17/22 09:05 General KRISTEL: 3 PFSH All Active Problems (Updated 09/17/22 @ 11:11 by Asad Martínez MD) COPD with acute exacerbation (Acute) Persistent air leak (Acute) Ruptured emphysematous bleb of lung (Acute) Tobacco abuse disorder (Acute) COPD (chronic obstructive pulmonary disease) (Chronic) Pneumothorax (Acute) Medical History (Updated 09/17/22 @ 11:11 by Asad Martínez MD) Perioperative hypertension Subcutaneous emphysema Surgical History (Updated 08/28/22 @ 12:33 by Savannah Chen MD) History of lung surgery [place] [facility] [place] Social History Smoking/Tobacco Use Status: Current every day Tobacco Type: cigarettes Smoking risk assessment performed?: Yes Alcohol Intake: former Drug use: Never Substance use type: does not use Do you feel safe at home: Yes Do you feel safe in your relationship?: Yes Exam Narrative Exam Narrative: General: Chronically ill-appearing in no moderate respiratory distress speaking in 3-5 word sentences. Head: Normocephalic, atraumatic. Eye: Extraocular eye movements intact. No conjunctival injection. No scleral icterus. Ear, nose, mouth, throat: Dry mucous membranes. Normal voice, handling secretions normally. Neck: Trachea midline. Cardiovascular: Well-perfused distal extremities. Rapid regular rate. Respiratory: Bilateral wheezes. Mild abdominal breathing. No tripoding. Gastrointestinal: Nondistended abdomen. Soft nontender Musculoskeletal: No significant lower extremity pitting edema. Moving all 4 extremities spontaneously. Skin: Normal for age and race, grossly normal temperature and turgor. No acute rash. Neurologic: Alert and appropriate, no apparent acute deficits. Psychiatric: Mood and manner are appropriate. Grooming and personal hygiene are appropriate. POCUS Exam (ED) Limited Thoracic Lung Exam DATE OF EXAM: 09/17/22 TIME OF EXAM: 08:56 IS THIS A REPEAT EXAM DURING THIS ENCOUNTER: No REASON FOR EXAM: Asthma VISUALIZED STRUCTURES: right anterior and left anterior PERTINENT FINDINGS/IMPRESSION: Other impression: Bilateral lung sliding Exam complete
--- NOTE | 2022-09-17 08:30 | RT.EKG_ITS ---
APPROVED REPORT Exam: Resting ECG Reason for Exam: Shortness of breath Patient Location: E HR:131 bpm ECG Measurements Heart Rate 131 AXIS DE 124 P 39 QRSd 90 QRS 90 QT 330 T 20 QTc 487 Conclusion Sinus tachycardia...rate> 99 Narrow complex sinus tachycardia at a rate of 131. Right axis deviation. ST segment depressions [address] segment elevations. No T wave inversions. No acute injury pattern compared to prior da luanne last month tachycardia and ST segment depressions are new.
[2022-09-17] MEDS: Dexamethasone 10 MG/ML VIAL IVP (08:37)
[2022-09-17 08:38] LABS: BE (Venous) -3 mmol/L (-2-3); HCO3 (Venous) 24 mmol/L (23-28); O2 Sat (Venous) 57 %; TCO2 (Venous) 22 mmol/L (24-29); pCO2 (Venous) 52 mmHg (41-51); pH (Venous) 7.27 (7.31-7.41); pO2 (Venous) 34 mmHg
[2022-09-17 08:42] LABS: Abs Immature Grans 0.04 10^3/uL (0.0-0.06); Absolute Basophil Count 0.07 10^3/uL (0.0-0.2); Absolute Eosinophil Count 0.05 10^3/uL (0.0-0.7); Absolute Monocyte Count 0.44 10^3/uL (0.1-0.8); Absolute Neutrophil Count 9.14 10^3/uL (1.2-6.7); Basophils % 0.7; Eosinophils % 0.5; HCT 46.2 % (40.0-50.0); HGB 15.5 g/dL (13.5-17.5); Immature Grans % 0.4; Lymphocytes % 8.5; MCH 31.9 pg (27.0-33.0); MCHC 33.5 % (32.0-36.0); MCV 95 fL (80-95); MPV 8.3 fL (8.0-11.0); Monocytes % 4.1; Neutrophils % 85.8; Platelet Count 351 10^3/uL (130-400); RBC 4.86 10^6/uL (4.36-5.78); RDW-SD 45.2 fL; WBC 10.64 10^3/uL (4.4-10.8)
[2022-09-17] MEDS: Normal Saline 500 ML IV ×2 (08:42→10:06)
[2022-09-17] MEDS: Albuterol 2.5 MG/3 ML INH SOLN VIAL 5 MG UPD (08:42)
[2022-09-17 08:52] LABS: Anion Gap 13.5 mmol/L (3-11); BUN 32 mg/dL (7-18); CO2 24.5 mmol/L (21.0-32.0); CREATININE 1.5 mg/dL (0.70-1.30); Calcium 9.9 mg/dL (8.5-10.1); Chloride 105 mmol/L (98-107); Estimated GFR 47.65 (mL/min/1.73m2); Glucose 108 mg/dL (74-106); Potassium 4.5 mmol/L (3.5-5.1); Sodium 143 mmol/L (136-145)
[2022-09-17] MEDS: Doxycycline Hyclate 100 MG CAP PO (08:56)
[2022-09-17 09:15] LABS: COVID-19 PCR Negative (Negative); Influenza A PCR Negative (Negative); Influenza B PCR Negative (Negative); RSV PCR Negative (Negative)
[2022-09-17 09:16] LABS: Source Nasopharynx
--- NOTE | 2022-09-17 09:43 | DI.VRAD_ITS ---
PROCEDURE INFORMATION: Exam: XR Chest Exam date and time: 09/17/2022 8:58 AM Age: 77 years old Clinical indication: Shortness of breath TECHNIQUE: Imaging protocol: Radiologic exam of the chest. Views: 1 view. COMPARISON: CR XR PORTABLE CHEST AP 08/28/2022 10:02 AM FINDINGS: Lungs: Severe emphysematous changes of the lungs. No new airspace opacities. Pleural spaces: No definite pneumothorax. Heart/Mediastinum: Mediastinum is unchanged from prior exam. Bones/joints: Unremarkable. IMPRESSION: Chronic COPD changes. No evidence of an acute cardiopulmonary process. Dictated and Authenticated by: Dustin Alvarado MD. Ordering:CLIFFORD Kamara MD
--- NOTE | 2022-09-17 10:03 | NUR.NOTE ---
Nursing Note: Patient was transitioned to room air, trialing to see if he maintains his saturations. Patient encouraged to eat his breakfast as well. MD notified of 120s HR, MD ordered another 1/2L of NS.
--- NOTE | 2022-09-17 11:50 | NUR.NOTE ---
Nursing Note: Faxed Referral for follow up visit within one week to canoe inspector finalMD Lor Cristina MD at [facility]
== END 2022-09-17 11:26 | disposition home or self-care (01) ==
PROVIDERS: Emergency Provider Emergency Medicine; PCP Family Medicine
DX: J44.1 Chronic obstructive pulmonary disease with (acute) exacerbation (principal); J45.909 Unspecified asthma, uncomplicated; R00.0 Tachycardia, unspecified; J96.91 Respiratory failure, unspecified with hypoxia
CPT/HCPCS: 36415; 76604; 80048; 82805; 87637; 93005; 96361; 96374; 99285; 71045; 85025; 93010; 99284; J1100; J7613